=== PATIENT | male | born 1980 | race Caucasian/White ===

== ENCOUNTER 2024-03-01 13:40 | Outpatient (AMB) | payer MEDICARE, MEDICAID, SELFPAY ==
[2024-03-01 13:58] VITALS: BP 150/94; PULSE 107; RESP 16; O2SAT 96; BMI 36.1
--- NOTE | 2024-03-01 13:58 | MHC.OFFVIS ---
Intake Vital Signs 03/01/24 13:58 Height 6 ft Weight 266 lb 4 oz BMI 36.1 BP 150/94 H Blood Pressure Location Lt brachial Position Sitting Respiration 16 Pulse 107 H Pulse Source Pulse Oximeter Pulse Oximetry (%) 96 Oxygen Delivery Method Room Air Intake Visit Reasons: neuropathy pain/back pain Allergies No Known Allergies Allergy (Verified 03/01/24 14:00) HPI HPI Comments History of Present Illness Details Drake is a very pleasant 43-year-old male who presents to the office today for evaluation management of his chronic bilateral diabetic neuropathy Patient reports he has been suffering with this pain 2014. He is insulin diabetic, currently using Humalog and Lantus. Unknown last A1c, is due to have blood work repeated. Blood sugars averaging 142-250. Was taking gabapentin 800 mg 3 times daily it was no longer controlling his symptoms. He is currently in the process of being changed to Lyrica but is waiting for that to be approved from his insurance. He has tried icy hot and CBD cream with minimal benefit. Previously use lidocaine patches to the tops of his feet with good effect but states at some point over the last year insurance stopped covering them. Pain today is rated as a 6/10, mainly the tops of both feet. Pain is constant, worse at night. In terms of muscle damage condition is described as burning, pulsing, throbbing, pounding, flushing, shooting, piercing, spreading Pain is negatively impacting patient's enjoyment of life, general activity, sleep, mood and relationships Physical Exam Vital Signs: Last Vital Signs Pulse 107 H 03/01/24 13:58 Resp 16 03/01/24 13:58 BP 150/94 H 03/01/24 13:58 Pulse Ox 96 03/01/24 13:58 Oxygen Delivery Method Room Air 03/01/24 13:58 BMI result Body Mass Index 36.1 General: awake, alert, oriented. Answers questions appropriately. Fully engaged in examination. Skin: warm, dry, intact. calloused skin noted bottom heals bilaterally, missing right 5th toenail. no other wounds, abrasions, lesions or ulcers visualized. HEENT: Normocephalic. Hearing intact. Cardiac: External chest normal in appearance. Respiratory: No cough, audible wheezing or stridor. Abdomen: without gross distension. MS: No obvious swelling or deformities. Able to transition from sit to stand unassisted. Ambulates with bilaterally normal heel strike and toe off Neurological: Oriented to person, place, time and situation. Thought process intact. Ambulates with the use of a cane Psychiatric: Appropriate mood and affect. Good judgment and insight. Assessment & Plan Assessment & Plan (1) Diabetic neuropathy: Code(s): E11.40 - Type 2 diabetes mellitus with diabetic neuropathy, unspecified Plan Drake presented to the office today for evaluation and management of his painful diabetic neuropathy. Discussed options for treatment including topical treatment and more permanent neuromodulation. Informational pamphlets provided. Will submit PA for Qutenza topical application. Patient advised on procedure including preparation and EMLA application prior to appointment. He is aware treatment is done in office and he will be here for 30minutes during each visit. Also discussed option for SCS trial/implant. Will discuss further if patient does not receive benefit from Qutenza topical. lidocaine 5% patches, apply as needed. on for 12 hours, off for 12 hours. All questions and concerns have been answered and patient agrees with the plan. Patient aware he will be called to schedule appointment for Qutenza pending insurance approval. Medications: New lidocaine 5% leave on most painful area for up to 12 hrs 2 patches topical DAILY 30 ea 3RF Coding Level of Care Code New Pt Level 4 (70933) Diagnoses Diabetic neuropathy E11.40
== END 2024-03-01 15:24 | disposition home or self-care (01) ==
PROVIDERS: PCP Physician Assistant Medical; Visit Provider Registered Nurse Emergency
DX: E11.40 Type 2 diabetes mellitus with diabetic neuropathy, unspecified (principal)
CPT/HCPCS: 99204

== ENCOUNTER → 2024-03-01 13:40 | Outpatient (BNVA) | payer MEDICARE, MEDICAID, SELFPAY | PROVIDERS: PCP Physician Assistant Medical; Visit Provider Registered Nurse Emergency | DX: E11.40 Type 2 diabetes mellitus with diabetic neuropathy, unspecified (principal) | CPT/HCPCS: 99202 ==

== ENCOUNTER 2024-03-21 11:00 | Outpatient (AMB) | payer MEDICARE, MEDICAID, SELFPAY ==
[2024-03-21 11:09] VITALS: BP 140/89; PULSE 102; O2SAT 96; BMI 36.3
--- NOTE | 2024-03-21 11:09 | A.OFFVIS_ITS ---
Vital Signs 03/21/24 11:09 Height 6 ft Weight 267 lb 8 oz BMI 36.3 BP 140/89 H Blood Pressure Location Lt brachial Position Sitting Pulse 102 H Pulse Source Pulse Oximeter Pulse Oximetry (%) 96 Oxygen Delivery Method Room Air Intake Visit Reasons: Qutenza - 1st Treatment Intake Note: Pain today 10 Pharmaceutical Assistant Required: No Accompanied by: Self / Same As Patient Allergies No Known Allergies Allergy (Verified 03/21/24 11:09) HPI Comments Details: Patient presents the office today for a scheduled 1st Qutenza application Reports that he put the EMLA cream on at home as instructed. Endorses cracks to both heels, he noticed this last week. He intended to reach out to the office to inquire if he would still be able to get the treatment with these wounds but forgot. Patient has not seen podiatry in 7 or 8 years. 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 Patient states he was recently given topical cream by his primary care doctor to apply twice daily to both feet for the calluses. He has started doing this but has not noted any improvement. Prior: Drake is a very pleasant 43-year-old male who presents to the office today for evaluation management of his chronic bilateral diabetic neuropathy Patient reports he has been suffering with this pain 2014. He is insulin diabetic, currently using Humalog and Lantus. Unknown last A1c, is due to have blood work repeated. Blood sugars averaging 142-250. Was taking gabapentin 800 mg 3 times daily it was no longer controlling his symptoms. He is currently in the process of being changed to Lyrica but is waiting for that to be approved from his insurance. He has tried icy hot and CBD cream with minimal benefit. Previously use lidocaine patches to the tops of his feet with good effect but states at some point over the last year insurance stopped covering them. Pain today is rated as a 6/10, mainly the tops of both feet. Pain is constant, worse at night. In terms of muscle damage condition is described as burning, pulsing, throbbing, pounding, flushing, shooting, piercing, spreading Pain is negatively impacting patient's enjoyment of life, general activity, sleep, mood and relationships Review of Systems Const All systems reviewed & are unremarkable except as noted in HPI and below Physical Exam Vital Signs: Last Vital Signs Pulse 102 H 03/21/24 11:09 BP 140/89 H 03/21/24 11:09 Pulse Ox 96 03/21/24 11:09 Oxygen Delivery Method Room Air 03/21/24 11:09 BMI result Body Mass Index 36.3 General: awake, alert, oriented. Answers questions appropriately. Fully engaged in examination. Skin: warm, dry, intact. calloused skin noted bottom heals bilaterally with 2 inch vertical crack noted to each heel. Visible granuloma tissue noted to the right heal. missing right 5th toenail. callouses noted bilateral heals. HEENT: Normocephalic. Hearing intact. Cardiac: External chest normal in appearance. Respiratory: No cough, audible wheezing or stridor. Abdomen: without gross distension. MS: No obvious swelling or deformities. Able to transition from sit to stand unassisted. Ambulates with bilaterally normal heel strike and toe off Neurological: Oriented to person, place, time and situation. Thought process intact. Ambulates with the use of a cane Psychiatric: Appropriate mood and affect. Good judgment and insight. Assessment & Plan Assessment & Plan (1) Diabetes: Code(s): E11.9 - Type 2 diabetes mellitus without complications Category: Medical (2) Diabetic neuropathy: Code(s): E11.40 - Type 2 diabetes mellitus with diabetic neuropathy, unspecified Category: Medical Plan Drake presented to the office today for follow-up diabetic neuropathy and planned 1st topical Qutenza application. Referral placed to Podiatry for evaluation and management of his diabetic foot care. He requested podiatry in [place] as he does not have transportation currently and is relying solely on public transportation. Lengthy discussion with patient regarding the cracks to both heels. He was advised that we can not proceed with topical Qutenza with any open foot wounds. Patient verbalized understanding. All questions and concerns have been answered and patient agrees with the plan. Patient will follow up here for topical Qutenza application after resolution of the wounds to his heels. Orders: Referrals Podiatry Referral E11.40 - Type 2 diabetes mellitus with diabetic neuropathy, unspecified, E11.9 - Type 2 diabetes mellitus without complications Coding Level of Care Code Est Pt Level 3 (21121) Diagnoses Diabetes E11.9 Diabetic neuropathy E11.40
== END 2024-03-21 11:29 | disposition home or self-care (01) ==
PROVIDERS: PCP Physician Assistant Medical; Visit Provider Registered Nurse Emergency
DX: E11.40 Type 2 diabetes mellitus with diabetic neuropathy, unspecified (principal)
CPT/HCPCS: 99213

== ENCOUNTER → 2024-03-21 11:00 | Outpatient (BNVA) | payer MEDICARE, MEDICAID, SELFPAY | PROVIDERS: PCP Physician Assistant Medical; Visit Provider Registered Nurse Emergency | DX: E11.40 Type 2 diabetes mellitus with diabetic neuropathy, unspecified (principal) | CPT/HCPCS: 99212 ==

== ENCOUNTER 2024-09-25 09:45 | Outpatient (AMB) | payer MEDICARE, MEDICAID, SELFPAY ==
[2024-09-25 09:57] VITALS: BP 143/95; PULSE 85; O2SAT 96; BMI 34.2
--- NOTE | 2024-09-25 09:57 | MHC.OFFVIS ---
Vital Signs 09/25/24 09:57 Height 6 ft Weight 252 lb BMI 34.2 BP 143/95 H Blood Pressure Location Lt brachial Position Sitting Pulse 85 Pulse Source Pulse Oximeter Pulse Oximetry (%) 96 Oxygen Delivery Method Room Air Intake Visit Reasons: Qutenza- no show in may Allergies No Known Allergies Allergy (Verified 09/25/24 09:58) HPI Comments Details: Patient presents the office today for follow-up diabetic neuropathy He was planned for 1st topical capsaicin in office application. Patient had left great toe amputation approximately 1 month ago. Now with several scabbed wounds to the left foot that he states was caused from the postop shoe. Denies fevers, chills, nausea, vomiting, diarrhea. Denies drainage from the foot wounds. He has an appointment with Podiatry and less than one-week for follow-up. Most recent A1c was 9. Prior: Patient presents the office today for a scheduled 1st Qutenza application Reports that he put the EMLA cream on at home as instructed. Endorses cracks to both heels, he noticed this last week. He intended to reach out to the office to inquire if he would still be able to get the treatment with these wounds but forgot. Patient has not seen podiatry in 7 or 8 years. 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 Patient states he was recently given topical cream by his primary care doctor to apply twice daily to both feet for the calluses. He has started doing this but has not noted any improvement. Prior: Drake is a very pleasant 43-year-old male who presents to the office today for evaluation management of his chronic bilateral diabetic neuropathy Patient reports he has been suffering with this pain 2014. He is insulin diabetic, currently using Humalog and Lantus. Unknown last A1c, is due to have blood work repeated. Blood sugars averaging 142-250. Was taking gabapentin 800 mg 3 times daily it was no longer controlling his symptoms. He is currently in the process of being changed to Lyrica but is waiting for that to be approved from his insurance. He has tried icy hot and CBD cream with minimal benefit. Previously use lidocaine patches to the tops of his feet with good effect but states at some point over the last year insurance stopped covering them. Pain today is rated as a 6/10, mainly the tops of both feet. Pain is constant, worse at night. In terms of muscle damage condition is described as burning, pulsing, throbbing, pounding, flushing, shooting, piercing, spreading Pain is negatively impacting patient's enjoyment of life, general activity, sleep, mood and relationships Review of Systems Const All systems reviewed & are unremarkable except as noted in HPI and below Physical Exam Vital Signs: Last Vital Signs Pulse 85 09/25/24 09:57 BP 143/95 H 09/25/24 09:57 Pulse Ox 96 09/25/24 09:57 Oxygen Delivery Method Room Air 09/25/24 09:57 BMI result Body Mass Index 34.2 General: awake, alert, oriented. Answers questions appropriately. Fully engaged in examination. Skin: warm, dry, intact. Several scabbed wounds noted to left foot. No redness, warmth swelling, drainage. HEENT: Normocephalic. Hearing intact. Cardiac: External chest normal in appearance. Respiratory: No cough, audible wheezing or stridor. Abdomen: without gross distension. MS: No obvious swelling or deformities. Able to transition from sit to stand unassisted. Ambulates with bilaterally normal heel strike and toe off Neurological: Oriented to person, place, time and situation. Thought process intact. Ambulates with the use of a cane Psychiatric: Appropriate mood and affect. Good judgment and insight. Assessment & Plan Assessment & Plan (1) Diabetes: Code(s): E11.9 - Type 2 diabetes mellitus without complications Category: Medical (2) Diabetic neuropathy: Code(s): E11.40 - Type 2 diabetes mellitus with diabetic neuropathy, unspecified Category: Medical Plan Drake presented to the office today for follow-up diabetic neuropathy and planned 1st topical Qutenza application. Lengthy discussion with patient regarding wounds to his foot. He was advised that we can not proceed with topical Qutenza. Patient verbalized understanding. He will follow up with Podiatry as planned Follow up with PCP or endocrinology to discuss A1c. Lengthy discussion today with the patient and his girlfriend regarding SCS trial/implant. He is aware that his A1c would need to be below 8 before we could proceed with this. He will work on getting his A1c in the acceptable range. All questions and concerns have been answered and patient agrees with the plan. Patient will follow up here for SCS trial once A1c less than 8. Coding Level of Care Code Est Pt Level 3 (91453) Complex EM visit Add On G2211 Diagnoses Diabetes E11.9 Diabetic neuropathy E11.40
== END 2024-09-25 10:13 | disposition home or self-care (01) ==
LOC: HO.PMC 09:45
PROVIDERS: PCP Physician Assistant Medical; Visit Provider Registered Nurse Emergency
DX: E11.40 Type 2 diabetes mellitus with diabetic neuropathy, unspecified (principal)
CPT/HCPCS: 99213; G2211

== ENCOUNTER → 2024-09-25 09:45 | Outpatient (BNVA) | payer MEDICARE, MEDICAID, SELFPAY | PROVIDERS: PCP Physician Assistant Medical; Visit Provider Registered Nurse Emergency | DX: E11.40 Type 2 diabetes mellitus with diabetic neuropathy, unspecified (principal) | CPT/HCPCS: 99212 ==

== ENCOUNTER 2025-02-19 12:46 | Outpatient (AMB) | payer MEDICARE, MEDICAID, SELFPAY ==
--- NOTE | 2025-02-19 12:48 | A.OFFVIS_ITS ---
Vital Signs 02/19/25 12:59 Height 6 ft Weight 263 lb BMI 35.7 BP 150/78 H Blood Pressure Location Lt brachial Position Sitting Pulse 80 Intake Visit Reasons: Bleeding lg skin tag at dorsal neck Intake Note: Patient referred by pcp Dr. Peterson for lesion on post dorsal neck. Present for 3m. Patient c/o: redness, swollen, painful, bleeding. No personal hx of skin CA. 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 Accompanied by: Yu Allergies No Known Allergies Allergy (Verified 02/19/25 12:55) Medication List - Last Reconciled 02/19/25 by Vladimir Romero MD ammonium lactate 12% 1 appl topical BID benazepril 40 mg PO DAILY clonazepam (Klonopin) 1 mg PO BEDTIME clonazepam mg PO diclofenac sodium 1% topical escitalopram oxalate 5 mg PO DAILY gabapentin 800 mg PO TID hydroxyzine HCl 25 mg PO TID insulin glargine (Lantus U-100 Insulin) 20 units subcut BID insulin lispro (Humalog KwikPen (U-100) Insulin) 1 sliding scale dose subcut USEASDIRECTD Lactobacillus rhamnosus GG (Culturelle) 1 cap PO BID lansoprazole 30 mg PO DAILY lidocaine 5% 2 patches topical DAILY lidocaine-prilocaine 2.5-2.5 % 1 appl topical ONCE metformin 1,000 mg PO BID nicotine (polacrilex) (Nicorette) 4 mg buccal Q1H risperidone (Risperdal) 1 mg PO BID sildenafil (Viagra) 100 mg PO DAILY PRN tizanidine 4 mg PO BID tizanidine 2 mg PO Q8H PRN tizanidine 2 mg PO BID HPI HPI Bleeding lg skin tag at dorsal neck: Details: 44-year-old male referred for a skin lesion on the posterior neck. He says that he has had this for many years. However, for the past 3 months, he says that he has been bleeding as he it gets irritated when he is sleeping. He says he subconsciously scratches this. He denies any significant increase in size. He is a known diabetic. He has says his blood sugars sugars are inconsistent. [facility] Medical History (Updated 02/19/25 @ 13:09 by Vladimir Romero MD) Benign skin lesion of neck Sleep apnea Right groin hernia Diabetes Neuropathy Acid reflux HTN (hypertension) Surgical History (Updated 02/19/25 @ 12:58 by MAXI Rojas) History of amputation of left fifth toe Social History (Updated 02/19/25 @ 12:58 by MAXI Rojas) Alcohol intake: current Alcohol intake frequency: a few times a month Alcohol type: beer and hard liquor Tobacco use type: Smokeless Tobacco Review of Systems Const Denies chills and Denies fever(s) Card Reports dyspnea on exertion Resp Denies cough and Reports dyspnea on exertion GI Denies abdominal pain Denies dysuria Musc Details: Difficulty with walking due to pain on his left leg from reason cellulitis Physical Exam Vital Signs: Last Vital Signs Pulse 80 02/19/25 12:59 BP 150/78 H 02/19/25 12:59 BMI result Body Mass Index 35.7 Const Other: Using crutches, appears morbidly obese General: comfortable and no acute distress Orientation/consciousness: patient oriented x3 Neck Other: Fleshy mass he had some bleeding on the posterior neck, about 2.5 cm in length with a narrow base Neck: Yes no lymphadenopathy Resp Auscultation: clear to auscultation bilaterally Cardio Rhythm: regular rhythm GI Palpation (GI): Soft to palpation, nontender and no guarding Neuro General: patient oriented x3 Assessment & Plan Assessment & Plan (1) Benign skin lesion of neck: Code(s): L98.9 - Disorder of the skin and subcutaneous tissue, unspecified Category: Medical Plan: This appears to be a fibroma. He wants this removed. I explained the technique of excision under local anesthesia. I reviewed the risks including but not limited to bleeding and infections as well as the benefits and alternatives. He says he wants to proceed This will be done in the office in his next visit. Coding Level of Care Code New Pt Level 3 (47312) Diagnoses Benign skin lesion of neck L98.9
[2025-02-19 12:59] VITALS: BP 150/78; PULSE 80; BMI 35.7
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
--- OUTSIDE RECORDS SUMMARY | 2025-02-19 15:18 | XMS_ITS | Clinical Summary ---
Author Organization [address] [place] [address] Address [address] [place] [address] Phone Care Team Providers Care Teaching Specialists Name Role Phone Jas Babb MD Primary Care Provider [phone] Allergies Active Allergy Reactions Criticality Noted Date Comments Acetaminophen Rash 08/28/2024 Prednisone Nausea Only 07/13/2016 Other Reaction(s): Hives/Urticaria Medications insulin glargine (LANTUS) 100 unit/mL injection Inject 45 Units under the skin at bedtime. Active insulin lispro 100 unit/mL injection Inject under the skin 3 (three) times a day before meals. -Administer within 15 minutes of a meal Active lansoprazole (PREVACID) [address] capsuleIndicat ions:Gastroeso phageal reflux disease, unspecified whether esophagitis present Take 1 capsule (30 mg total) by mouth 1 (one) time each day. 30 capsule 3 01/10/20 25 Active sucralfate (CARAFATE) 1 gram tablet Take 1 tablet (1 g total) by mouth 4 (four) times a day (before meals and nightly). Take 1 hour before meals and at bedtime 360 each 01/22/20 25 025 Active ARIPiprazole (ABILIFY) 5 mg tablet Take 1 tablet (5 mg total) by mouth at bedtime. 01/15/20 25 Active nicotine polacrilex (NICORETTE) [address] 1 each (4 mg total) into mouth between cheek and gum every 2 (two) hours if needed for smoking cessation. 02/01/20 25 Active tiZANidine (ZANAFLEX) 2 mg tablet Take 1 tablet (2 mg total) by mouth 2 (two) times a day if needed for muscle spasms. 01/31/20 25 Active amLODIPine (NORVASC) 5 mg tablet Take 2 tablets (10 mg total) by mouth 1 (one) time each day. 60 each 02/05/20 25 025 Active metoprolol succinate (TOPROL-XL) 25 mg 24 hr tablet Take 1 tablet (25 mg total) by mouth 1 (one) time each day. Do not crush or chew. 30 each 02/05/20 25 Active oxyCODONE (ROXICODONE) 5 mg immediate release tablet 09/05/20 24 Discontinued(E xpired) glyBURIDE (DIABETA) 5 mg tablet Take 5 mg by mouth daily (with breakfast). Discontinued(T herapy completed) ARIPiprazole (ABILIFY) 30 mg tablet Take 30 mg by mouth daily. Discontinued(T herapy completed) clonazePAM (KlonoPIN) 1 mg tablet Take 1 mg by mouth daily. Discontinued(E ntered in Error) pregabalin (LYRICA) 150 mg capsule Take 150 mg by mouth 3 times daily. Discontinued(T herapy completed) metFORMIN (GLUCOPHAGE) 1,000 mg tablet Take 1,000 mg by mouth 2 times daily (with meals). Discontinued(T herapy completed) amLODIPine (NORVASC) 5 mg tablet Take 1 tablet (5 mg total) by mouth 1 (one) time each day. Discontinued(T herapy completed) levothyroxine sodium (TIROSINT) 50 mcg capsule Take 50 mcg by mouth daily. Discontinued(T herapy completed) clonazePAM (KlonoPIN) 0.5 mg tablet Take 0.5 mg by mouth 2 times daily as needed. Discontinued(T herapy completed) ibuprofen (ADVIL,MOTRIN) 600 mg tablet Take 600 mg by mouth 3 times daily (with meals). Discontinued(T herapy completed) benazepriL (LOTENSIN) 40 mg tablet Take 40 mg by mouth daily. Discontinued(E ntered in Error) meclizine (ANTIVERT) 25 mg tablet Take by mouth every 8 hours. Prn Discontinued(T herapy completed) ammonium lactate (AMLACTIN) 12 % cream APPLY 10 GM ON THE SKIN TWICE A DAY OVER FEET 12/30/19 25 025 Discontinued(E ntered in Error) atenoloL (TENORMIN) 25 mg tablet Take 1 tablet (25 mg total) by mouth 1 (one) time each day. 025 Discontinued(E ntered in Error) cephalexin (KEFTAB) 500 mg tablet Take 1 tablet (500 mg total) by mouth 3 (three) times a day. 01/27/20 025 Discontinued(S top Taking at Discharge) clotrimazole (LOTRIMIN) 1 % cream Apply 1 Application topically 2 (two) times a day. Discontinued(E ntered in Error) diclofenac (VOLTAREN) 1 % topical gel Apply 2 g topically 4 (four) times a day. Discontinued(E ntered in Error) doxycycline hyclate (VIBRA-TABS) 100 mg tablet Take 1 tablet (100 mg total) by mouth 2 (two) times a day. 01/29/20 025 Discontinued(S top Taking at Discharge) hydroCHLOROthi azide (MICROZIDE) 12.5 mg capsule Take 1 capsule (12.5 mg total) by mouth 1 (one) time each day. 025 Discontinued(E ntered in Error) ibuprofen (ADVIL,MOTRIN) 800 mg tablet Take 1 tablet (800 mg total) by mouth every 8 (eight) hours if needed for mild pain or fever - temperature GREATER than 38 C (100.4 F). 025 Discontinued(E ntered in Error) saccharomyces boulardii (FLORASTOR) 250 mg capsule Take 1 capsule (250 mg total) by mouth 2 (two) times a day for 14 days. 28 capsule 02/05/20 25 025 oxyCODONE (ROXICODONE) 5 mg immediate release tablet Take 1 tablet (5 mg total) by mouth every 6 (six) hours if needed for severe pain for up to 3 days. Max Daily Amount: 20 mg 12 tablet 02/05/20 25 025 Discontinued amoxicillin-cl avulanate (AUGMENTIN) 875-125 mg per tablet Take 1 tablet by mouth 2 (two) times a day for 10 days. 20 each 02/05/20 25 025 sulfamethoxazo le-trimethopri m (BACTRIM DS,SEPTRA DS) 800-160 mg per tablet Take 1 tablet by mouth 2 (two) times a day for 10 days. 20 each 02/05/20 25 025 neomycin-bacit racin-polymyxi n B (NEOSPORIN) ointment Apply topically 1 (one) time each day for 10 days. 15 g 02/05/20 25 025 oxyCODONE (ROXICODONE) 5 mg immediate release tablet Take 1 tablet (5 mg total) by mouth every 6 (six) hours if needed for severe pain for up to 3 days. 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 estations 12/20/2017 Encounters Date Type Department Care Team Description 02/13/2025 Telephone Orthopedic Surgery [facility] [address] [phone] Jonathon Davidson DPM Scooter 02/12/2025 1:00 PM EDT Office Visit Orthopedic Surgery [facility] [address] [phone] Lety, Jonathon A, DPM Poorly controlled type 2 diabetes mellitus with neuropathy (CMS/HCC) (Primary Dx); Cellulitis of left foot; 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, left, with fat layer exposed (CMS/HCC) 02/02/2025 8:14 PM EDT - 02/04/2025 12:09 PM EDT Hospital Encounter [facility] [address] [place] [phone] Coby Brasher DO Ishtiaq, Rizwan, MD Kela, Kashyap Devendrabhai, MD Cellulitis of foot, left (Primary Dx); Cellulitis of foot, right Discharge Disposition: Home or Self Care 02/01/2025 9:07 AM EDT - 02/01/2025 2:35 PM EDT Emergency [facility] [address] [place] [phone] Tremaine Herrera DO Leg pain, diffuse, left (Primary Dx); Bilateral cellulitis of lower leg Discharge Disposition: Left Against Medical Advice 01/21/2025 1:20 PM EST Office Visit Gastroenterology - [place] [address] 175 [facility] [address] [place] [phone] Faith Hernandez NP Chronic gastric ulcer without hemorrhage and without perforation (Primary Dx); Hiatal hernia with GERD; Colonoscopy refused 01/10/2025 Telephone Gastroenterology - [place] [address] 175 [facility] [address] [place] [phone] Faith Hernandez NP Forms/questionnaires 12/23/2024 10:30 AM EST Office Visit Orthopedic Surgery - [place] 250 175 [facility] [address] [place] [phone] Jonathon Davidson DPM Poorly controlled type 2 diabetes mellitus with neuropathy (CMS/HCC) (Primary Dx); Cellulitis of left foot; 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, left, with fat layer exposed (CMS/HCC); Non-pressure chronic ulcer of left ankle with fat layer exposed (CMS/HCC) 11/27/2024 10:59 AM EST Anesthesia Event [facility] [address] [place] [phone] Nilson Mullins DO 11/27/2024 9:21 AM EST - 11/27/2024 11:59 PM EST Hospital Encounter [facility] [address] [place] [phone] Magalie Feng MD Korobkov, Vitaliy, DO Steele, Matthew G, CRNA Esophageal dysphagia Discharge Disposition: Home or Self Care 11/25/2024 10:15 AM EST Office Visit Orthopedic Surgery [facility] [address] [phone] Jonathon Davidson DPM Controlled type 2 diabetes with neuropathy ([facility]) (Primary Dx); Non-pressure chronic ulcer of left ankle with fat layer exposed ([facility]/HCC); 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, left, with fat layer exposed ([facility]/HCC) 11/21/2024 11:00 AM EST Consult Gastroenterology [facility] 175 [facility] [address] [phone] Faith Hernandez NP Esophageal dysphagia (Primary Dx); Gastroesophageal reflux disease without esophagitis; Primary hypertension 11/21/2024 Telephone Gastroenterology [facility] [address] [phone] Faith Hernandez NP PRIOR AUTHORIZATION from Last 3 Months Surgical History Surgery Date Site/Laterality Comments HERNIA REPAIR 04/2014 Right PROCEDURE: REPAIR INGUINAL HERNIA; COMMENT: incarcerated ESOPHAGOGASTRODUODENOSCOPY TOE AMPUTATION Left great toe partial amputation Medical History Medical History Date Comments Anxiety state DX:Anxiety state Asthma 04/29/2019 DX:Asthma Bipolar disorder DX:Bipolar diso rder ([facility]) Chronic back pain DX:Chronic frederick k pain Depressive disorder DX:Depressiv e disorder Diabetes mellitus type 2 wit h neurological manifestations ([facility]) 12/20/2017 DX:Diabetes meghan itus type 2 with neurological manifestations ([facility]) Esophageal reflux DX:Esophageal reflux Essential hypertension DX:Essent ial hypertension Morbid obesity with BMI of 4 0.0-44.9, adult ([facility]) DX:Morbid obesity with BMI o f 40.0-44.9, adult (HCC) Obstructive sleep apnea DX:Obstr uctive sleep apnea Peripheral neuropathy DX:Periphe ral neuropathy Family History Medical History Relation Name Comments Diabetes Father Stroke Father Other: Other Mother Diabetes Sister Thyroid cancer Sister Relation Name Status Comments Father Mother Alive Sister Social History Tobacco Use Types Packs/Day Years Used Date Smoking Tobacco: Former Smokeless Tobacco: Current Tobacco Cessation:Ready to Q uit: Not Asked; Counseling Given: Not Answered Alcohol Use Standard Drinks/Week Comments Yes 0 [...] Orientation Straight 12/12/2024 7: 58 PM EST Obstetrics History Last Filed Vital Signs Vital Sign Reading Time Taken Comments Blood Pressure 147/89 02/04/2025 11:21 AM EDT Pulse 80 02/04/2025 11:21 AM EDT Temperature 36.2 ??C (97.2 ??F) 02/04/2025 11:21 AM E DT Respiratory Rate 17 02/04/2025 7:39 AM EDT Oxygen Saturation 97% 02/04/2025 3:00 AM EDT Inhaled Oxygen Concentration - - Weight 118 kg (261 lb) 02/12/2025 12:59 PM EDT Height 185.4 cm (6' 1 ) 02/12/2025 12:59 PM EDT Body Mass Index 34.43 02/12/2025 12:59 PM EDT Plan of Treatment Upcoming Encounters Date Type Department Care Team (Late st Contact Info) Description 02/20/2025 1:30 PM EDT Office Visit Orthopedic Surgery - [place] [address] [phone] Jonathon Davidson DPM 175 [facility] [address] [place] [address] 07/28/2025 1:00 PM EDT Office Visit Gastroenterology - [place] 175 [facility] 175 [facility] [address] [place] [phone] Faith Hernandez, AZAEL 175 [facility] [address] [place] [address] Health Maintenance Due Date Last Done Comments Diabetes: Annual Retina Eye Exam 1991 DTaP,Tdap,and Td Vaccines (1 - Tdap) 2000 Hepatitis B Vaccines (1 of 3 - 19+ 3-dose series) 2000 Pneumococcal Vaccine: Pediatrics (0 to 5 Years) and At-Risk Patients (6 to 64 Years) (1 of 2 - PCV) 2000 COVID-19 Vaccine ( - season) 2024 Cholesterol Screening (Lipid Panel) 09/12/2024 Depression Screening 09/12/2024 Diabetes: Annual Urine Albumin-Creatinine Ratio (uACR) 09/12/2024 Diabetes: Blood Sugar Control Test (HGBA1C) 09/12/2024 HIV Screening 09/12/2024 Hepatitis C Screening 09/12/2024 Medicare Annual Wellness Visit 09/12/2024 Social Influencers of Health Screening 09/12/2024 Influenza Vaccine (Season Ended) 2025 Diabetes: Annual Foot Exam 02/02/2026 02/02/2025 Diabetes: Annual GFR (Glomerular Filtration Rate) 02/04/2026 02/04/2025, 02/03/2025, 02/02/2025, Additional history exists Hypertension/CHF/CAD Annual BMP Blood Test 02/04/2026 02/04/2025, 02/03/2025, 02/02/2025, Additional history exists HIB Vaccines Aged Out No longer eligi ble based on patient's age to complete this topic HPV Vaccines Aged Out No longer eligi ble based on patient's age to complete this topic Hepatitis A Vaccines Aged Out No long er eligible based on patient's age to complete this topic IPV Vaccines Aged Out No longer eligi ble based on patient's age to complete this topic MMR Vaccines Aged Out No longer eligi ble based on patient's age to complete this topic Meningococcal ACWY Vaccine Aged Out N o longer eligible based on patient's age to complete this topic Meningococcal B Vacine Aged Out No lo nger eligible based on patient's age to complete this topic RSV Immunization Patients Under 20 months Aged Out No longer eligible based on patient's age to complete this topic Varicella Vaccines Aged Out No longer eligible based on patient's age to complete this topic Procedures Procedure Name Priority Date/Time Associated Diagnosis Comments ECG OUTSIDE 02/05/2025 POCT GLUCOSE BLOOD Routine 02/04/2025 11 :16 AM EDT VANCOMYCIN, TROUGH Timed 02/04/2025 8: 08 AM EDT CBC WITH AUTO DIFFERENTIAL Routine 02/04/2025 8:08 AM EDT BASIC METABOLIC PANEL Routine 02/04/2025 8:08 AM EDT CBC AND DIFFERENTIAL Routine 02/04/2025 8:08 AM EDT POCT GLUCOSE BLOOD Routine 02/04/2025 7: 40 AM EDT POCT GLUCOSE BLOOD Routine 02/03/2025 9: 32 PM EDT US EXTREMITY NONVASCULAR LIMITED LEFT Routine 02/03/2025 7:48 PM EDT POCT GLUCOSE BLOOD Routine 02/03/2025 3: 57 PM EDT POCT GLUCOSE BLOOD Routine 02/03/2025 11 :12 AM EDT POCT GLUCOSE BLOOD Routine 02/03/2025 7: 59 AM EDT CBC WITH AUTO DIFFERENTIAL Routine 02/03/2025 6:01 AM EDT MAGNESIUM Routine 02/03/2025 6:01 AM EDT BASIC METABOLIC PANEL Routine 02/03/2025 6:01 AM EDT CBC AND DIFFERENTIAL Routine 02/03/2025 6:01 AM EDT CULTURE BLOOD Routine 02/03/2025 12:35 AM EDT CULTURE BLOOD Routine 02/03/2025 12:35 AM EDT POCT GLUCOSE BLOOD Routine 02/02/2025 11 :38 PM EDT CBC WITH AUTO DIFFERENTIAL STAT 02/02/2025 9:18 PM EDT COMPREHENSIVE METABOLIC PANEL STAT 02/02/2025 9:18 PM EDT CBC AND DIFFERENTIAL STAT 02/02/2025 9:18 PM EDT XR FOOT 3+ VIEWS BILAT STAT 12:21 PM EDT VAS US DUPLEX LOWER EXT VENOUS LEFT STAT 02/01/2025 12:13 PM EDT Leg pain, diffuse, left LACTATE, WITH REFLEX STAT 02/01/2025 9:59 AM EDT SEDIMENTATION RATE STAT 02/01/2025 9: 59 AM EDT CBC WITH AUTO DIFFERENTIAL STAT 02/01/2025 9:59 AM EDT C-REACTIVE PROTEIN STAT 02/01/2025 9: 59 AM EDT COMPREHENSIVE METABOLIC PANEL STAT 02/01/2025 9:59 AM EDT CBC AND DIFFERENTIAL STAT 02/01/2025 9:59 AM EDT CULTURE BLOOD STAT 02/01/2025 9:59 AM EDT POCT GLUCOSE BLOOD Routine 02/01/2025 8: 53 AM EDT EGD Routine 11/27/2024 11:21 AM EST Esophageal dysphagia TISSUE EXAM Routine 11/27/2024 11:11 AM EST Esophageal dysphagia POCT GLUCOSE BLOOD Routine 11/27/2024 9: 54 AM EST from Last 3 Months Results * ECG-Outside (02/05/2025) us Provider Onbase MD ECG ORDERABLES Final Result * (ABNORMAL) POCT Glucose, blood (02/04/2025 11:16 AM EDT) Only the most recent of9 resultswithin the time period is included. [facility] Glucose POCT 334(H) 70 - 100 mg/dL 02/04/2025 11:17 AM EDT [facility] Blood Capillary blood specimen / Unknown 02/04/2025 11:16 AM EDT 02/04/2025 11:18 AM EDT Toro Alves MD LAB POINT O F CARE TEST DOCKED DEVICE UNSOLICITED RESULTS Final Result [facility] [address] [place] [address], [place] [phone] * (ABNORMAL) CBC auto differential (02/04/2025 8:08 AM EDT) Only the most recent of4 resultswithin the time period is included. [facility] WBC 8.2 4.8 - 10.8 K/mcL LAB HEMETOLOGY METHOD 02/04/2025 8:48 AM EDT [facility] RBC 5.00 4.50 - 5.50 M/[facility] LAB HEMETOLOGY METHOD 02/04/2025 8:48 AM EDT [facility] Hemoglobin 14.1 13.5 - 17.5 g/dL LAB HEMETOLOGY METHOD 02/04/2025 8:48 AM EDT [facility] Hematocrit 40.5(L) 42.0 - 54.0 % LAB HEMETOLOGY METHOD 02/04/2025 8:48 AM [facility] MCV 81.7 79.0 - 98.0 FL LAB HEMETOLOGY METHOD 02/04/2025 8:48 AM [facility] MCH 28.4 27.0 - 32.0 pcg LAB HEMETOLOGY METHOD 02/04/2025 8:48 AM [facility] MCHC 34.8 32.0 - 37.0 g/dL LAB HEMETOLOGY METHOD 02/04/2025 8:48 AM [facility] RDW 13.1 11.0 - 15.0 % LAB HEMETOLOGY METHOD 02/04/2025 8:48 AM [facility] Platelets 427(H) 130 - 400 K/mcL LAB HEMETOLOGY METHOD 02/04/2025 8:48 AM [facility] MPV 8.8 7.0 - 11.0 FL LAB HEMETOLOGY METHOD 02/04/2025 8:48 AM [facility] NRBC 0.0 <1.0 % LAB HEMETOLOGY METHOD 02/04/2025 8:48 AM [facility] NRBC Absolute 0.00 <0.10 K/mcL LAB HEMETOLOGY METHOD 02/04/2025 8:48 AM [facility] Neutrophils Relative 68.8 % LAB HEMETOLOGY METHOD 02/04/2025 8:48 AM [facility] Lymphocytes Relative 21.1 % LAB HEMETOLOGY METHOD 02/04/2025 8:48 AM [facility] Monocytes Relative 4.9 % LAB HEMETOLOGY METHOD 02/04/2025 8:48 AM [facility] Eosinophils Relative 4.0 % LAB HEMETOLOGY METHOD 02/04/2025 8:48 AM [facility] Basophils Relative 0.6 % LAB HEMETOLOGY METHOD 02/04/2025 8:48 AM EDT [facility] Immature Granulocytes Relative 0.6 % LAB HEMETOLOGY METHOD 02/04/2025 8:48 AM EDT [facility] Neutrophils Absolute 5.62 1.50 - 7.00 K/mcL LAB HEMETOLOGY METHOD 02/04/2025 8:48 AM EDT [facility] Lymphocytes Absolute 1.72 1.00 - 5.00 K/mcL LAB HEMETOLOGY METHOD 02/04/2025 8:48 AM EDT [facility] Monocytes Absolute 0.40 0.20 - 1.00 K/mcL LAB HEMETOLOGY METHOD 02/04/2025 8:48 AM EDT [facility] Eosinophils Absolute 0.33 0.00 - 0.50 K/mcL LAB HEMETOLOGY METHOD 02/04/2025 8:48 AM EDT [facility] Basophils Absolute 0.05 0.00 - 0.20 K/mcL LAB HEMETOLOGY METHOD 02/04/2025 8:48 AM EDT [facility] Immature Granulocytes Absolute 0.05(H) 0.00 - 0.03 K/mcL LAB HEMETOLOGY METHOD 02/04/2025 8:48 AM EDT [facility] Blood Venous blood specimen / Unknown Venipuncture / Unknown 02/04/2025 8:08 AM EDT 02/04/2025 8:41 AM EDT us Sarah Beth VELAZQUEZ LAB BLOOD ORDERABLES Final Result [facility] [address] [place] [address], * (ABNORMAL) Vancomycin, trough Please draw up to one hour prior to 0900 vanco dose (02/04/2025 8:08 AM EDT) Vancomycin Trough 9.7(L) 10.0 - 20.0 mcg/mL LAB CHEMISTRY METHOD 02/04/2025 9:14 AM [facility] Blood Venous blood specimen / Unknown Venipuncture / Unknown 02/04/2025 8:08 AM EDT 02/04/2025 8:41 AM EDT us Rosa Maria VELAZQUEZ LAB BLOOD ORDERABLES Final Resu lt [facility] [address] [place] [address], [place] [phone] * (ABNORMAL) Basic metabolic panel (02/04/2025 8:08 AM EDT) Only the most recent of2 resultswithin the time period is included. Sodium 138 133 - 145 mmol/L LAB CHEMISTRY METHOD 02/04/2025 9:14 AM [facility] Potassium 3.9 3.5 - 5.5 mmol/L LAB CHEMISTRY METHOD 02/04/2025 9:14 AM [facility] Chloride 102 96 - 110 mmol/L LAB CHEMISTRY METHOD 02/04/2025 9:14 AM [facility] CO2 27 21 - 32 mmol/L LAB CHEMISTRY METHOD 02/04/2025 9:14 AM [facility] Anion Gap 9 3 - 11 LAB CHEMISTRY METHOD 02/04/2025 9:14 AM [facility] Glucose 237(H) 70 - 100 mg/dL LAB CHEMISTRY METHOD 02/04/2025 9:14 AM [facility] BUN 7 5 - 25 mg/dL LAB CHEMISTRY METHOD 02/04/2025 9:14 AM [facility] Creatinine 0.70 0.70 - 1.30 mg/dL LAB CHEMISTRY METHOD 02/04/2025 9:14 AM [facility] eGFR 117 >=60 mL/min/1. 73m2 LAB CHEMISTRY METHOD 02/04/2025 9:14 AM EDT [facility] Comment:Calculation based on the??Chronic Kidney Disease Epidemiology Collaboration (CKD-EPI) equation refit??without adjustment for race. BUN/Creatinine Ratio 10.0 LAB CHEMISTRY METHOD 02/04/2025 9:14 AM EDT [facility] Calcium 9.1 8.5 - 10.5 mg/dL LAB CHEMISTRY METHOD 02/04/2025 9:14 AM EDT [facility] Blood Venous blood specimen / Unknown Venipuncture / Unknown 02/04/2025 8:08 AM EDT 02/04/2025 8:41 AM EDT Sarah Beth VELAZQUEZ LAB BLOOD ORDERABLES Final Result [facility] [address] [place] [address], * [place] Extremity Nonvascular Limited Left (02/03/2025 7:48 PM EDT) Anatomical Region Laterality Modality Extremity Left Ultrasound 02/03/2025 8:26 PM EDT Impressions 02/03/2025 8:26 PM EDT Impression: 1. No evidence of abscess. This document has been electronically signed by: Kristen Liu MD on 02/03/2025 20:26:17 Narrative 02/03/2025 8:26 PM EDT INDICATION: Left foot cellulitis. Underlying abscess? Ultrasound soft tissues left foot Comparison: None Findings: A focused ultrasound evaluation was performed of the dorsum of the left foot in the region of edema. Severe soft tissue edema is present but there is no walled-off fluid collection. Procedure Note Kristen Cosme MD - 02/03/2025 INDICATION: Left foot cellulitis. Underlying abscess? Ultrasound soft tissues left foot Comparison: None Findings: A focused ultrasound evaluation was performed of the dorsum of the left foot in the region of edema. Severe soft tissue edema is present butthere is no walled-off fluid collection. IMPRESSION: Impression: 1. No evidence of abscess. This document has been electronically signed by: Kristen Liu MD on 02/03/2025 20:26:17 us Rosa Maria VELAZQUEZ IMG US PROCEDURES Final Result * Magnesium (02/03/2025 6:01 AM EDT) Magnesium 2.1 1.9 - 2.6 mg/dL LAB CHEMISTRY METHOD 02/03/2025 7:25 AM EDT [facility] Blood Venous blood specimen / Unknown Venipuncture / Unknown 02/03/2025 6:01 AM EDT 02/03/2025 6:52 AM EDT Rosa Maria VELAZQUEZ LAB BLOOD ORDERABLES Final Resu lt Performing Organization Address [facility]/ZIP Co de Phone Number [facility] [address] [place] [address], * Culture blood (02/03/2025 12:35 AM EDT) Only the most recent of3 resultswithin the time period is included. [facility] Culture, Blood No growth at 5 days 02/08/2025 4:01 AM EDT [facility] Blood Venous blood specimen / Unknown Venipuncture / Unknown 02/03/2025 12:35 AM EDT 02/03/2025 12:50 AM EDT Rosa Maria VELAZQUEZ LAB MICROBIOLOGY - GENERAL ORDE RABLES Final Result Performing Organization Address City/[facility]/ZIP Co de Phone Number [facility] [address] [place] [address], * (ABNORMAL) Comprehensive metabolic panel (02/02/2025 9:18 PM EDT) Only the most recent of2 resultswithin the time period is included. Pathologist [facility] Sodium 136 133 - 145 mmol/L LAB CHEMISTRY METHOD 02/02/2025 9:54 PM [facility] Potassium 3.7 3.5 - 5.5 mmol/L LAB CHEMISTRY METHOD 02/02/2025 9:54 PM [facility] Chloride 103 96 - 110 mmol/L LAB CHEMISTRY METHOD 02/02/2025 9:54 PM [facility] CO2 27 21 - 32 mmol/L LAB CHEMISTRY METHOD 02/02/2025 9:54 PM [facility] Anion Gap 6 3 - 11 LAB CHEMISTRY METHOD 02/02/2025 9:54 PM [facility] Glucose 297(H) 70 - 100 mg/dL LAB CHEMISTRY METHOD 02/02/2025 9:54 PM [facility] BUN 15 5 - 25 mg/dL LAB CHEMISTRY METHOD 02/02/2025 9:54 PM [facility] Creatinine 0.72 0.70 - 1.30 mg/dL LAB CHEMISTRY METHOD 02/02/2025 9:54 PM [facility] eGFR 116 >=60 mL/min/1. 73m2 LAB CHEMISTRY METHOD 02/02/2025 9:54 PM [facility] Comment:Calculation based on the??Chronic Kidney Disease Epidemiology Collaboration (CKD-EPI) equation refit??without adjustment for race. BUN/Creatinine Ratio 20.8 LAB CHEMISTRY METHOD 02/02/2025 9:54 PM [facility] Calcium 9.3 8.5 - 10.5 mg/dL LAB CHEMISTRY METHOD 02/02/2025 9:54 PM [facility] AST (SGOT) 19 10 - 42 unit/L LAB CHEMISTRY METHOD 02/02/2025 9:54 PM [facility] ALT (SGPT) 28 10 - 60 unit/L LAB CHEMISTRY METHOD 02/02/2025 9:54 PM [facility] Alkaline Phosphatase 119 42 - 121 unit/L LAB CHEMISTRY METHOD 02/02/2025 9:54 PM EDT [facility] Total Protein 7.2 6.0 - 8.0 g/dL LAB CHEMISTRY METHOD 02/02/2025 9:54 PM EDT [facility] Albumin 3.8 3.2 - 5.0 g/dL LAB CHEMISTRY METHOD 02/02/2025 9:54 PM EDT [facility] Total Bilirubin 0.3 0.0 - 1.4 mg/dL LAB CHEMISTRY METHOD 02/02/2025 9:54 PM EDT [facility] Blood Venous blood specimen / Unknown Venipuncture / Unknown 02/02/2025 9:18 PM EDT 02/02/2025 9:26 PM EDT us Coby Clark Brasher DO LAB BLOOD ORDERABLES Vidya l Result [facility] [address] [place] [address], [place] [phone] * XR Foot 3+ Views bilat (02/01/2025 12:21 PM EDT) Anatomical Region Laterality Modality Lower Extremities, Foot Bilateral Radiogra phic Imaging 02/01/2025 12:2 8 PM EDT Impressions 02/01/2025 12:30 PM EDT Amputation changes of the left 1st digit at the mid aspect of the 1st proximal phalanx. ??Other bones appear within normal limits. Bones of the right foot appear within normal limits. ??No erosive changes are noted. ??Alignment is maintained. ??Small linear density is noted in the plantar soft tissues of the heel of the foot suggestive of a small foreign body. -------- FINAL REPORT -------- Dictated By: Sharif Kruger Dictated Date: 02/01/2025 12:28 ET Assigned Physician: Sharif Kruger Reviewed and Electronically Signed By: Sharif Kruger Signed Date: 02/01/2025 12:30 ET Workstation ID: [id number] Transcribed By: Self Edit Transcribed Date: 02/01/2025 12:28 ET Narrative 02/01/2025 12:30 PM EDT PROCEDURE: XR FOOT 3+ VIEWS BILAT INDICATION: pain COMPARISON: Foot radiograph August 2024 Procedure Note Sharif Kruger MD - 02/01/2025 PROCEDURE: XR FOOT 3+ VIEWS BILAT INDICATION: pain COMPARISON: Foot radiograph August 2024 IMPRESSION: Amputation changes of the left 1st digit at the mid aspect of the 1stproximal phalanx. Other bones appear within normal limits. Bones of the right foot appear within normal limits. No erosive changesare noted. Alignment is maintained. Small linear density is noted in theplantar soft tissues of the heel of the foot suggestive of a small foreignbody. -------- FINAL REPORT -------- Dictated By: Sahrif Kruger Dictated Date: 02/01/2025 12:28 ET Assigned Physician: Sharif Kruger Reviewed and Electronically Signed By: Sharif Kruger Signed Date: 02/01/2025 12:30 ET Workstation ID: [id number] Transcribed By: Self Edit Transcribed Date: 02/01/2025 12:28 ET us Drake Corey MD IMG XR PROCEDURES Final Res ult * Vascular US Duplex Lower Extremity Venous Left (02/01/2025 12:13 PM EDT) Anatomical Region Laterality Modality Vascular, Abdomen Ultrasound 02/01/2025 12:1 8 PM EDT Impressions 02/01/2025 12:19 PM EDT No evidence of deep vein thrombosis. -------- FINAL REPORT -------- Dictated By: Sharif Kruger Dictated Date: 02/01/2025 12:18 ET Assigned Physician: Sharif Kruger Reviewed and Electronically Signed By: Sharif Kruger Signed Date: 02/01/2025 12:19 ET Workstation ID: [id number] Transcribed By: Self Edit Transcribed Date: 02/01/2025 12:18 ET Narrative 02/01/2025 12:19 PM EDT Ultrasound duplex venous study left lower extremity TECHNIQUE: Grayscale and color imaging with spectral analysis was performed of the region of interest INDICATION: Pain COMPARISON: None FINDINGS: The veins appear normal throughout the left lower extremity. ??Normal venous flow. ??Normal compressibility. ??Soft tissues appear normal. ??No evidence of thrombosis. Procedure Note Sharif Kruger MD - 02/01/2025 Ultrasound duplex venous study left lower extremity TECHNIQUE: Grayscale and color imaging with spectral analysis wasperformed of the region of interest INDICATION: Pain COMPARISON: None FINDINGS: The veins appear normal throughout the left lower extremity. Normalvenous flow. Normal compressibility. Soft tissues appear normal. Noevidence of thrombosis. IMPRESSION: No evidence of deep vein thrombosis. -------- FINAL REPORT -------- Dictated By: Sharif Kruger Dictated Date: 02/01/2025 12:18 ET Assigned Physician: Sharif Kruger Reviewed and Electronically Signed By: Sharif Kruger Signed Date: 02/01/2025 12:19 ET Workstation ID: [id number] Transcribed By: Self Edit Transcribed Date: 02/01/2025 12:18 ET us Tremaine Herrera DO CV VASCULAR PROCEDURES Final R esult * Lactate, with reflex (02/01/2025 9:59 AM EDT) LACTIC ACID 1.5 0.4 - 2.0 mmol/L LAB CHEMISTRY METHOD 02/01/2025 11:05 AM EDT [facility] Blood Venous blood specimen / Unknown Venipuncture / Unknown 02/01/2025 9:59 AM EDT 02/01/2025 10:38 AM EDT Tremaine Herrera DO LAB BLOOD ORDERABLES Final Res ult [facility] [address] [place] [address], * (ABNORMAL) Sedimentation rate, automated (02/01/2025 9:59 AM EDT) [facility] Sed Rate 37(H) 0 - 15 mm/hr LAB HEMETOLOGY METHOD 02/01/2025 10:49 AM EDT [facility] Blood Venous blood specimen / Unknown Venipuncture / Unknown 02/01/2025 9:59 AM EDT 02/01/2025 10:37 AM EDT Drake Corey MD LAB BLOOD ORDERABLES Final Result Performing Organization Address [facility]/ZIP Co de Phone Number [facility] [address] [place] [address], * (ABNORMAL) C-reactive protein (02/01/2025 9:59 AM EDT) [facility] C-Reactive Protein 2.23(H) <=0.50 mg/dL LAB CHEMISTRY METHOD 02/01/2025 11:06 AM EDT [facility] Blood Venous blood specimen / Unknown Venipuncture / Unknown 02/01/2025 9:59 AM EDT 02/01/2025 10:37 AM EDT Drake Corey MD LAB BLOOD ORDERABLES Final Result Performing Organization Address [facility]/ZIP Co de Phone Number [facility] [address] [place] [address], * EGD Anesthesia - [facility]; [facility] ENDOSCOPY (11/27/2024 11:21 AM EST) Anatomical Region Laterality Modality Endoscopy 11/27/2024 11:0 5 AM EST Impressions 11/27/2024 11:28 AM EST - Normal examined duodenum. ? - Non-bleeding gastric ulcer with no stigmata of ? bleeding. Biopsied. ? - Gastritis. Biopsied. ? - Small hiatal hernia. ? - Benign-appearing esophageal stenosis. Dilated. Recommendation: ?- Discharge patient to home. ? - Follow an antireflux regimen. ? - Use a proton pump inhibitor PO daily. ? - Await pathology results. ? - Return to GI clinic as previously scheduled. Narrative 11/27/2024 11:28 AM EST [facility] Patient Name: Drake Sarmiento Procedure Date: 11/27/2024 11:05 AM Date of : 1980 Age: 44 Gender: Male Note Status: Finalized Attending MD: Magalie Feng MD, Procedure Date No Time: 11/27/2024 Procedure: ? Upper GI endoscopy Indications: ? Dysphagia, Stricture of the esophagus, For therapy of ? esophageal stricture Providers: ? Magalie Feng MD Referring MD: ?Magalie Feng MD Medicines: ? Monitored Anesthesia Care Complications: ? No immediate complications. Estimated blood loss: ? Minimal. Estimated Blood Loss: ? Estimated blood loss was minimal. Procedure: ? Pre-Anesthesia Assessment: ? - Prior to the procedure, a History and Physical was ? performed, and patient medications and allergies were ? reviewed. The patient is competent. The risks and ? benefits of the procedure and the sedation options and ? risks were discussed with the patient. All questions ? were answered and informed consent was obtained. ? Patient identification and proposed procedure were ? verified by the physician, the nurse, the tire groover ? and the paintless dent repair technician in the pre-procedure area in the ? endoscopy suite. Mental Status Examination: alert and ? oriented. Airway Examination: normal oropharyngeal ? airway and neck mobility. Respiratory Examination: ? clear to auscultation. CV Examination: normal. ? Prophylactic Antibiotics: The patient does not require ? prophylactic antibiotics. Prior Anticoagulants: The ? patient has taken no anticoagulant or antiplatelet ? agents. ASA Grade Assessment: III - A patient with ? severe systemic disease. After reviewing the risks and ? benefits, the patient was deemed in satisfactory ? condition to undergo the procedure. The anesthesia ? plan was to use monitored anesthesia care (MAC). ? Immediately prior to administration of medications, ? the patient was re-assessed for adequacy to receive ? sedatives. The heart rate, respiratory rate, oxygen ? saturations, blood pressure, adequacy of pulmonary ? ventilation, and response to care were monitored ? throughout the procedure. The physical status of the ? patient was re-assessed after the procedure. ? After obtaining informed consent, the endoscope was ? passed under direct vision. Throughout the procedure, ? the patient's blood pressure, pulse, and oxygen ? saturations were monitored continuously. The Endoscope ? was introduced through the mouth, and advanced to the ? second part of duodenum. The upper GI endoscopy was ? accomplished without difficulty. The patient tolerated ? the procedure fairly well. Findings: ?The examined duodenum was normal. ? One non-bleeding superficial gastric ulcer with no ? stigmata of bleeding was found on the greater ? curvature of the stomach. Biopsies were taken with a ? cold forceps for histology. Estimated blood loss was ? minimal. ? Localized mild inflammation characterized by ? congestion (edema) and erythema was found in the ? gastric antrum. Biopsies were taken with a cold ? forceps for histology. Estimated blood loss was ? minimal. ? A small hiatal hernia was present. ? One benign-appearing, intrinsic moderate ? (circumferential scarring or stenosis; an endoscope ? may pass) stenosis was found at the gastroesophageal ? junction. This stenosis measured 1.7 cm (inner ? diameter) x 1 cm (in length). The stenosis was ? traversed. A guidewire was placed and the scope was ? withdrawn. Dilation was performed with a Savary ? dilator with mild resistance at 18 mm, 19 mm and 20 mm. Procedure Code(s): ? --- Professional --- ? 20628, Esophagogastroduodenoscopy, flexible, ? transoral; with insertion of guide wire followed by ? passage of dilator(s) through esophagus over guide wire ? 10432, 59, Esophagogastroduodenoscopy, flexible, ? transoral; with biopsy, single or multiple Diagnosis Code(s): ? --- Professional --- ? K25.9, Gastric ulcer, unspecified as acute or chronic, ? without hemorrhage or perforation ? K29.70, Gastritis, unspecified, without bleeding ? K44.9, Diaphragmatic hernia without obstruction or ? gangrene ? K22.2, Esophageal obstruction CPT copyright 2020 [employer]. All rights reserved. The codes documented in this report are preliminary and upon cold storage worker review may be revised to meet current compliance requirements. Magalie Feng MD 11/27/2024 11:28:08 AM This report has been signed electronically.Magalie Feng MD Number of Addenda: 0 Note Initiated On: 11/27/2024 11:05 AM Scope In: Scope Out: ? Endoscopy Department at [facility] - [address] [place] [address], ? [place] [address] Procedure Note Magalie Feng MD - 11/27/2024 [facility] Patient Name: Drake Sarmiento Procedure Date: 11/27/2024 11:05 AM Date of : 1980 Age: 44 Gender: Male Note Status: Finalized Attending MD: Magalie Feng MD, Procedure Date No Time: 11/27/2024 Procedure: Upper GI endoscopy Indications: Dysphagia, Stricture of the esophagus, For therapyof esophageal stricture Providers: Magalie Feng MD Referring MD: Magalie Feng MD Medicines: Monitored Anesthesia Care Complications: No immediate complications. Estimated blood loss: Minimal. Estimated Blood Loss: Estimated blood loss was minimal. Procedure: Pre-Anesthesia Assessment: - Prior to the procedure, a History and Physicalwas performed, and patient medications and allergieswere reviewed. The patient is competent. The risks and benefits of the procedure and the sedation optionsand risks were discussed with the patient. Allquestions were answered and informed consent was obtained. Patient identification and proposed procedure were verified by the physician, the nurse, theanesthetist and the paintless dent repair technician in the pre-procedure area in the endoscopy suite. Mental Status Examination: alertand oriented. Airway Examination: normal oropharyngeal airway and neck mobility. Respiratory Examination: clear to auscultation. CV Examination: normal. Prophylactic Antibiotics: The patient does notrequire prophylactic antibiotics. Prior Anticoagulants: The patient has taken no anticoagulant or antiplatelet agents. ASA Grade Assessment: III - A patient with severe systemic disease. After reviewing the risksand benefits, the patient was deemed in satisfactory condition to undergo the procedure. The anesthesia plan was to use monitored anesthesia care (MAC). Immediately prior to administration of medications, the patient was re-assessed for adequacy to receive sedatives. The heart rate, respiratory rate, oxygen saturations, blood pressure, adequacy of pulmonary ventilation, and response to care were monitored throughout the procedure. The physical status ofthe patient was re-assessed after the procedure. After obtaining informed consent, the endoscope was passed under direct vision. Throughout theprocedure, the patient's blood pressure, pulse, and oxygen saturations were monitored continuously. TheEndoscope was introduced through the mouth, and advanced tothe second part of duodenum. The upper GI endoscopy was accomplished without difficulty. The patienttolerated the procedure fairly well. Findings: The examined duodenum was normal. One non-bleeding superficial gastric ulcer with no stigmata of bleeding was found on the greater curvature of the stomach. Biopsies were taken witha cold forceps for histology. Estimated blood losswas minimal. Localized mild inflammation characterized by congestion (edema) and erythema was found in the gastric antrum. Biopsies were taken with a cold forceps for histology. Estimated blood loss was minimal. A small hiatal hernia was present. One benign-appearing, intrinsic moderate (circumferential scarring or stenosis; an endoscope may pass) stenosis was found at thegastroesophageal junction. This stenosis measured 1.7 cm (inner diameter) x 1 cm (in length). The stenosis was traversed. A guidewire was placed and the scope was withdrawn. Dilation was performed with a Savary dilator with mild resistance at 18 mm, 19 mm and 20mm. Procedure Code(s): --- Professional --- 11120, Esophagogastroduodenoscopy, flexible, transoral; with insertion of guide wire followed by passage of dilator(s) through esophagus over guidewire 52932, 59, Esophagogastroduodenoscopy, flexible, transoral; with biopsy, single or multiple Diagnosis Code(s): --- Professional --- K25.9, Gastric ulcer, unspecified as acute orchronic, without hemorrhage or perforation K29.70, Gastritis, unspecified, without bleeding K44.9, Diaphragmatic hernia without obstruction or gangrene K22.2, Esophageal obstruction CPT copyright 2020 [employer]. All rights reserved. The codes documented in this report are preliminary and upon cold storage worker reviewmay be revised to meet current compliance requirements. Magalie Feng MD 11/27/2024 11:28:08 AM This report has been signed electronically.Magalie Feng MD Number of Addenda: 0 Note Initiated On: 11/27/2024 11:05 AM Scope In: Scope Out: Endoscopy Department at [address] [id number] IMPRESSION: - Normal examined duodenum. - Non-bleeding gastric ulcer with no stigmata of bleeding. Biopsied. - Gastritis. Biopsied. - Small hiatal hernia. - Benign-appearing esophageal stenosis. Dilated. Recommendation: - Discharge patient to home. - Follow an antireflux regimen. - Use a proton pump inhibitor PO daily. - Await pathology results. - Return to GI clinic as previously scheduled. Magalie Feng MD GI~PROCEDURE ORDERABLES Fin al Result * Tissue exam (11/27/2024 11:11 AM EST) Final Diagnosis A. Stomach, greater curve, biopsy: Reactive gastritis with ulceration. No Helicobacter pylori type gastritis identified. B. Stomach, biopsy: Gastric mucosa with mild chronic inactive gastritis. No Helicobacter pylori type gastritis identified. 11/28/2024 1:38 PM EST [facility] LAB Gross Description A. Stomach, biopsy greater curve gastric: Labeled biopsy gr stomach . Received in formalin are two soft, guerra-red tissue fragments measuring 0.3 cm and 0.4 cm in greatest diameter, which are wrapped in paper and submitted in toto in one cassette, two pieces, multiple levels. B. Stomach, biopsy gastric: Labeled biopsy ga stomach . Received in formalin are two soft, guerra-pink tissue fragments measuring 0.25 cm and 0.45 cm in greatest diameter, which are wrapped in paper and submitted in toto in one cassette, two pieces, multiple levels. TS 11/28/2024 1:38 PM EST [facility] Disclaimer Unless otherwise specified, all tissue is 10% NB formalin fixed and paraffin embedded. 11/28/2024 1:38 PM EST [facility] Tissue Stomach structure / Unknown 11/27/2024 11:11 AM EST 11/27/2024 12:02 PM EST Tissue specimen (specimen) Stomach structure / Unknown 11/27/2024 11:12 AM EST 11/27/2024 12:02 PM EST Magalie Feng MD LAB PATHOLOGY ORDERABLES Fi nal Result [facility] [address] [place] [address], from Last 3 Months Insurance MEDICARE MEDICAID - [place] Advance Directives Documents on File Type Date Recorded Patient Manager Search Engine Expl [facility] Health Care Decision (hx) 09/03/2024 AD SANTOYO DIRECTIVE * Full Code - Confirmed (Latest Code Status on File) Date Activated Date Inactivated Comments 02/02/2025 11:56 PM 02/04/2025 2:10 PM This code s tatus was ascertained in the following way: Code status discussion: discussion with patient To update the patient's code status, place a code status order. Do not modify or discontinue any currently active code status orders. Care Teams Teaching Specialists Relationship Specialty Start Date End Date Jas Babb MD [address] [place] [address] [address] [place], [place] PCP - General Internal Medicine 06/10/16
== END 2025-02-19 13:16 | disposition home or self-care (01) ==
LOC: HO.HGS 12:47
PROVIDERS: PCP Physician Assistant Medical; Referring Provider Physician Assistant Medical; Visit Provider Surgery
DX: L98.9 Disorder of the skin and subcutaneous tissue, unspecified (principal)
CPT/HCPCS: 99203

== ENCOUNTER → 2025-02-19 12:46 | Outpatient (BNVA) | payer MEDICARE, MEDICAID, SELFPAY | PROVIDERS: PCP Physician Assistant Medical; Referring Provider Physician Assistant Medical; Visit Provider Surgery | DX: L98.9 Disorder of the skin and subcutaneous tissue, unspecified (principal) | CPT/HCPCS: 99202 ==

== ENCOUNTER 2025-03-06 13:07 | Outpatient (AMB) | payer MEDICARE, MEDICAID, SELFPAY ==
[2025-03-06 13:19] VITALS: BP 146/90; BMI 35.8
--- NOTE | 2025-03-06 13:19 | A.OFFVIS_ITS ---
Vital Signs 03/06/25 13:19 Height 6 ft Weight 264 lb BMI 35.8 BP 146/90 H Blood Pressure Location Lt brachial Position Sitting Intake Visit Reasons: excision skin lesion posterior neck Intake Note: Pt states, I'm here to have a skin tag cut off. c/o feeling pain during the procedure Supervisor Case Loading Required: No Allergies acetaminophen [From Tylenol] Allergy (Verified 03/06/25 13:22) hives prednisone Allergy (Verified 03/06/25 13:22) hives/vomiting Medication List - Last Reconciled 03/06/25 by Matteo Pat, RN ammonium lactate 12% 1 appl topical BID benazepril 40 mg PO DAILY clonazepam (Klonopin) 1 mg PO BEDTIME clonazepam mg PO diclofenac sodium 1% topical escitalopram oxalate 5 mg PO DAILY hydroxyzine HCl 25 mg PO TID insulin glargine (Lantus U-100 Insulin) 20 units subcut BID insulin lispro (Humalog KwikPen (U-100) Insulin) 1 sliding scale dose subcut USEASDIRECTD Lactobacillus rhamnosus GG (Culturelle) 1 cap PO BID lansoprazole 30 mg PO DAILY lidocaine 5% 2 patches topical DAILY lidocaine-prilocaine 2.5-2.5 % 1 appl topical ONCE metformin 1,000 mg PO BID nicotine (polacrilex) (Nicorette) 4 mg buccal Q1H risperidone (Risperdal) 1 mg PO BID sildenafil (Viagra) 100 mg PO DAILY PRN tizanidine 4 mg PO BID tizanidine 2 mg PO Q8H PRN tizanidine 2 mg PO BID HPI HPI excision skin lesion posterior neck: Details: He is here for excision of a skin lesion from the posterior neck. [facility] Medical History Benign skin lesion of neck Sleep apnea Right groin hernia Diabetes Neuropathy Acid reflux HTN (hypertension) Surgical History History of amputation of left fifth toe Social History (Updated 02/19/25 @ 12:58 by MAXI Rojas) Alcohol intake: current Alcohol intake frequency: a few times a month Alcohol type: beer and hard liquor Tobacco use type: Smokeless Tobacco Physical Exam Vital Signs: Last Vital Signs BP 146/90 H 03/06/25 13:19 BMI result Body Mass Index 35.8 Office Procedures Excision Details: He was in prone position. The area of the skin lesion was prepped and draped. Lidocaine 1% was used for local anesthesia. I made an elliptical incision on the skin surrounding this lesion with a blade 15. This was carried down through the full-thickness of the skin and part of the subcutaneous fat to excise the entire lesion. The lesion was about 2.5 cm in widest dimension The incision was closed with full-thickness nylon 3-0 simple interrupted sutures. Dressings were applied. The procedure was completed. He tolerated procedure well. There were no immediate complications. [id number] scalp/neck/hands/feet/genitalia 2.1cm-3cm Procedure code (CPT) selection complete Assessment & Plan Assessment & Plan (1) Benign skin lesion of neck: Code(s): L98.9 - Disorder of the skin and subcutaneous tissue, unspecified Category: Medical Plan: Excision was done under local anesthesia. He tolerated procedure well. There was minimal blood loss. He was given wound care instructions. I will see him for removal of sutures in about 2 weeks. Coding Level of Care Code Procedure Only Diagnoses Benign skin lesion of neck L98.9 CPT Codes Scalp/Neck/Hands/Feet/Genetalia - CPT: 17299-Odpknbio scalp/neck/hands/feet/genitalia 2.1cm-3cm ([id number])
--- OUTSIDE RECORDS SUMMARY | 2025-03-06 16:02 | XMS_ITS | Clinical Summary ---
Author Organization 175 [facility] Address [address] [place] [address] Phone Care Team Providers Care District Sales Manager Name Role Phone Jas Babb MD Primary Care Provider [phone] Allergies Active Allergy Reactions Criticality Noted Date Comments Acetaminophen Rash 08/28/2024 Prednisone Nausea Only 07/13/2016 Other Reaction(s): Hives/Urticaria Medications insulin glargine (LANTUS) 100 unit/mL injection Inject 45 Units under the skin at bedtime. Active insulin lispro 100 unit/mL injection Inject under the skin 3 (three) times a day before meals. -Administer within 15 minutes of a meal Active sucralfate (CARAFATE) 1 gram tablet Take [...] time each day. 60 each 02/05/20 25 Active metoprolol succinate (TOPROL-XL) 25 mg 24 hr tablet Take 1 tablet (25 mg total) by mouth 1 (one) time each day. Do not crush or chew. 30 each 02/05/20 25 Active pantoprazole (PROTONIX) 40 mg EC tablet Take 1 tablet (40 mg total) by mouth 1 (one) time each day. Do not crush, chew, or split. 30 each 03/05/20 25 025 Active mupirocin (BACTROBAN) 2 % ointment Apply topically 1 (one) time each day for 10 days. 22 g 2 03/06/20 25 025 Active lansoprazole (PREVACID) [address] capsuleIndicati ons:Gastroesoph ageal reflux disease, unspecified whether esophagitis present Take 1 capsule (30 mg total) by mouth 1 (one) time each day. 30 capsule 3 01/10/20 025 Discontinued(Di scontinued by another clinician) saccharomyces boulardii (FLORASTOR) 250 mg capsule Take [...] mg 12 tablet 02/05/20 25 025 Discontinued amoxicillin-cla vulanate (AUGMENTIN) 875-125 mg per tablet Take 1 tablet by mouth 2 (two) times a day for 10 days. 20 each 02/05/20 25 025 sulfamethoxazol e-trimethoprim (BACTRIM DS,SEPTRA DS) 800-160 mg per tablet Take 1 tablet by mouth 2 (two) times a day for 10 days. 20 each 02/05/20 25 025 neomycin-bacitr acin-polymyxin B (NEOSPORIN) ointment Apply topically 1 (one) [...] left 02/02/2025 Anxiety state 09/25/2024 Bipolar disorder ([facility] V24, [facility] V28) 04/2024 Chronic back pain 09/25/2024 Depressive disorder 09/25/2024 Esophageal reflux 09/25/2024 Essential hypertension 09/25/2024 Hypothyroid 09/25/2024 Obstructive sleep apnea 09/25/2024 Peripheral neuropathy 09/25/2024 Morbid obesity with BMI of 4 0.0-44.9, adult ([facility] V24, [facility] V28) 09/25/2024 Asthma 04/29/2019 Diabetes mellitus type 2 wit h neurological manifestations ([place] [id number], [place] [id number]) 12/20/2017 Encounters Date Type Department Care Team Description 03/06/2025 8:30 AM EDT Office Visit Orthopedic Surgery [place] [address] [phone] Jonathon Davidson DPM 03/06/2025 Telephone Gastroenterology [facility] 175 [facility] 175 [facility] [address] [place] [phone] Faith Hrenandez NP PROVIDER CALL BACK 03/05/2025 1:52 PM EDT - 03/05/2025 6:24 PM EDT Emergency [facility] Emergency [address] [place] [phone] Drake Corey MD Acute chest pain (Primary Dx) Discharge Disposition: Home or Self Care 02/27/2025 1:15 PM EDT Office Visit Orthopedic Surgery [facility] [address] [phone] Jonathon Davidson DPM Poorly controlled type 2 diabetes mellitus with neuropathy ([facility] V24, [facility] V28) (Primary Dx); Cellulitis of left foot; 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, left, with fat layer exposed (CMS/HCC V24, CMS/HCC V28); Chronic ulcer of right great toe, with fat layer exposed (CMS/HCC V24, CMS/HCC V28) 02/20/2025 1:30 PM EDT Office Visit Orthopedic Surgery [facility] [address] [phone] Jonathon Davidson DPM Poorly controlled type 2 diabetes mellitus with neuropathy (CMS/HCC V24, CMS/HCC V28) (Primary Dx); Cellulitis of left foot; 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, left, with fat layer exposed (CMS/HCC V24, CMS/HCC V28); Chronic ulcer of right great toe, with fat layer exposed (CMS/HCC V24, CMS/HCC V28) 02/13/2025 Telephone Orthopedic Surgery [facility] [address] [phone] Jonathon Davidson DPM Scooter 02/12/2025 1:00 PM EDT Office Visit Orthopedic [facility] [address] [phone] Jonathon Davidson DPM Poorly controlled type 2 diabetes mellitus with neuropathy (CMS/HCC V24, CMS/HCC V28) (Primary Dx); Cellulitis of left foot; 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, left, with fat layer exposed (CMS/[facility] V24, CMS/HCC V28) 02/02/2025 8:14 PM EDT - 02/04/2025 12:09 PM EDT Hospital Encounter [facility] [address] [place] [phone] Coby Brasher DO Ishtiaq, Rizwan, MD Kela, Kashyap Devendrabhai, MD Cellulitis of foot, left (Primary Dx); Cellulitis of foot, right Discharge Disposition: Home or Self Care 02/01/2025 9:07 AM EDT - 02/01/2025 2:35 PM EDT Emergency [facility] Emergency [address] [place] [address] Tremaine Herrera DO Leg pain, diffuse, left (Primary Dx); Bilateral cellulitis of lower leg Discharge Disposition: Left Against Medical Advice 01/21/2025 1:20 PM EST Office Visit Gastroenterology [facility] 175 [facility] 175 [facility] [address] [place] [address] Faith Hernandez NP Chronic gastric ulcer without hemorrhage and without perforation (Primary Dx); Hiatal hernia with GERD; Colonoscopy refused 01/10/2025 Telephone Gastroenterology [facility] 175 [facility] 175 [facility] [address] [place] [address] Faith Hernandez NP Forms/questionnaire s 12/23/2024 10:30 AM EST Office Visit Orthopedic Surgery [facility] [address] 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, left, with fat layer exposed ([facility] V24, [facility] V28); Non-pressure chronic ulcer of left ankle with fat layer exposed ([facility] V24, [facility] V28) from Last 3 Months Surgical History Surgery Date Site/Laterality Comments HERNIA REPAIR 04/2014 Right PROCEDURE: REPAIR INGUINAL HERNIA; COMMENT: incarcerated ESOPHAGOGASTRODUODENOSCOPY TOE AMPUTATION Left great toe partial amputation Medical History Medical History Date Comments Anxiety state DX:Anxiety state Asthma 04/29/2019 DX:Asthma Bipolar disorder ([facility] V2 4, [facility] V28) DX:Bipolar disorder (HCC) Chronic back pain DX:Chronic frederick k pain Depressive disorder DX:Depressiv e disorder Diabetes mellitus type 2 wit h neurological manifestations ([facility] V24, [facility] V28) 12/20/2017 DX:Diabetes mellitus type 2 with neurological manifestations ([facility]) Esophageal reflux DX:Esophageal reflux Essential hypertension DX:Essent ial hypertension Morbid obesity with BMI of 4 0.0-44.9, adult ([facility] V24, [facility] V28) DX:Morbid obesity wit h BMI of 40.0-44.9, adult (HCC) Obstructive sleep apnea DX:Obstr [...] Sign Reading Time Taken Comments Blood Pressure 142/97 03/05/2025 4:51 PM EDT Pulse 74 03/05/2025 4:51 PM EDT Temperature 36.7 ??C (98.1 ??F) 03/05/2025 4:51 PM ED T Respiratory Rate 18 03/05/2025 4:51 PM EDT Oxygen Saturation 96% 03/05/2025 4:51 PM EDT Inhaled Oxygen Concentration - - Weight 120 kg (265 lb) 03/06/2025 8:36 AM EDT Height 182.9 cm (6' 0.01 ) 03/06/2025 8:36 AM ED T Body Mass Index 35.93 03/06/2025 8:36 AM EDT Plan of Treatment Upcoming Encounters Date Type Department Care Team (Late st Contact Info) Description 03/13/2025 10:00 AM EDT Office Visit Orthopedic Surgery - [place] [address] [phone] Jonathon Davidson, MARQUITA 175 [facility] [address] [place] [address] 03/25/2025 2:20 PM EDT Office Visit Gastroenterology - [place] [address] [facility] [address] [place] [address] Faith Hernandez, AZAEL 175 [facility] [address] [place] [address] Health Maintenance Due Date Last Done Comments [...] 02/02/2025 Diabetes: Annual GFR (Glomerular Filtration Rate) 03/05/2026 03/05/2025, 02/04/2025, 02/03/2025, Additional history exists Hypertension/CHF/CAD Annual BMP Blood Test 03/05/2026 03/05/2025, 02/04/2025, 02/03/2025, Additional history exists HIB Vaccines Aged Out [...] age to complete this topic Meningococcal B Vaccine Aged Out No l onger eligible based on patient's age to complete this topic RSV Immunization Patients Under 20 months Aged Out No longer eligible based on patient's age to complete this topic Varicella Vaccines Aged Out No longer eligible based on patient's age to complete this topic Procedures Procedure Name Priority Date/Time Associated Diagnosis Comments ECG ANNOTATED 03/06/2025 D-DIMER STAT 03/05/2025 3:49 PM EDT TROPONIN I HIGH SENSITIVITY STAT 03/05/2025 3:49 PM EDT XR CHEST 2 VIEWS STAT 03/05/2025 3:13 PM EDT CBC WITH AUTO DIFFERENTIAL STAT 03/05/2025 2:15 PM EDT B-TYPE NATRIURETIC PEPTIDE STAT 03/05/2025 2:15 PM EDT MAGNESIUM STAT 03/05/2025 2:15 PM EDT LIPASE STAT 03/05/2025 2:15 PM EDT COMPREHENSIVE METABOLIC PANEL STAT 03/05/2025 2:15 PM EDT CBC AND DIFFERENTIAL STAT 03/05/2025 2:15 PM EDT TROPONIN I HIGH SENSITIVITY STAT 03/05/2025 2:15 PM EDT ECG 12-LEAD STAT 03/05/2025 1:31 PM EDT ECG OUTSIDE 02/05/2025 POCT GLUCOSE BLOOD Routine [...] BLOOD Routine 02/01/2025 8: 53 AM EDT from Last 3 Months Results * ECG-Annotated (03/06/2025) us Provider Onbase MD ECG ORDERABLES Final Result * Troponin I high sensitivity (03/05/2025 3:49 PM EDT) Only the most recent of2 resultswithin the time period is included. High Sensitivity Troponin I 7 <=79 ng/L LAB CHEMISTRY METHOD 03/05/2025 4:37 PM EDT [facility] Blood Venous blood specimen / Unknown Venipuncture / Unknown 03/05/2025 3:49 PM EDT 03/05/2025 3:56 PM EDT Narrative [facility] - 03/05/2025 4:37 PM EDT High levels of biotin in samples may falsely decrease hsTroponin values. ??Use caution when interpreting hsTroponin results in patients taking biotin who exhibit renal impairment (eGFR <60) or in patients taking more than 20 mg/day of biotin. us Drake Corey MD LAB BLOOD ORDERABLES Final Result Performing Organization Address [facility] de Phone Number [facility] [address] [place] [address], [place] [phone] * D-dimer, quantitative (03/05/2025 3:49 PM EDT) D-Dimer, Quant (D-DU) <150 <=230 ng/mL DDU LAB COAGULATION METHOD 03/05/2025 4:12 PM EDT [facility] Blood Venous blood specimen / Unknown Venipuncture / Unknown 03/05/2025 3:49 PM EDT 03/05/2025 3:56 PM EDT Narrative [facility] - 03/05/2025 4:12 PM EDT D-Dimer <230 ng/mL (D-Dimer units) is the threshold for exclusion of DVT/PE. D-Dimer may be elevated in: Critically ill, severely infected, trauma patients, DIC, acute CVA, acute VA, unstable angina, AF, old age, , and smoking. D-Dimer may be decreased with: Initiation of heparin therapy and oral anticoagulants. us Drake Corey MD LAB BLOOD ORDERABLES Final Result Performing Organization Address [facility] de Phone Number [facility] [address] [place] [address], [place] [phone] * XR Chest 2 Views (03/05/2025 3:13 PM EDT) Anatomical Region Laterality Modality Body Radiographic Siomara ging 03/05/2025 4:22 PM EDT Impressions 03/05/2025 4:22 PM EDT FINDINGS/IMPRESSION: Normal heart size without congestive heart failure. ??No pneumonia. -------- FINAL REPORT -------- Dictated By: Seamus Souza Dictated Date: 03/05/2025 16:22 ET Assigned Physician: Seamus Souza Reviewed and Electronically Signed By: Seamus Souza Signed Date: 03/05/2025 16:22 ET Workstation ID: [id number] Transcribed By: Self Edit Transcribed Date: 03/05/2025 16:22 ET Narrative 03/05/2025 4:22 PM EDT XR CHEST 2 VIEWS INDICATION: chest pain TECHNIQUE: XR CHEST 2 VIEWS COMPARISON: No priors available. Procedure Note Seamus Souza MD - 03/05/2025 XR CHEST 2 VIEWS INDICATION: chest pain TECHNIQUE: XR CHEST 2 VIEWS COMPARISON: No priors available. IMPRESSION: FINDINGS/IMPRESSION: Normal heart size without congestive heart failure.No pneumonia. -------- FINAL REPORT -------- Dictated By: Seamus Souza Dictated Date: 03/05/2025 16:22 ET Assigned Physician: Seamus Souza Reviewed and Electronically Signed By: Seamus Souza Signed Date: 03/05/2025 16:22 ET Workstation ID: [id number] Transcribed By: Self Edit Transcribed Date: 03/05/2025 16:22 ET Drake Corey MD IMG XR PROCEDURES Final Res ult * (ABNORMAL) CBC auto differential (03/05/2025 2:15 PM EDT) Only the most recent of5 resultswithin the time period is included. WBC 10.3 4.8 - 10.8 K/mcL LAB HEMETOLOGY METHOD 03/05/2025 2:34 PM EDT [facility] RBC 5.50 4.50 - 5.50 M/mcL LAB HEMETOLOGY METHOD 03/05/2025 2:34 PM EDT [facility] Hemoglobin 15.3 13.5 - 17.5 g/dL LAB HEMETOLOGY METHOD 03/05/2025 2:34 PM EDT [facility] Hematocrit 44.5 42.0 - 54.0 % LAB HEMETOLOGY METHOD 03/05/2025 2:34 PM EDT [facility] MCV 81.1 79.0 - 98.0 FL LAB HEMETOLOGY METHOD 03/05/2025 2:34 PM EDT [facility] MCH 27.9 27.0 - 32.0 pcg LAB HEMETOLOGY METHOD 03/05/2025 2:34 PM EDT [facility] MCHC 34.4 32.0 - 37.0 g/dL LAB HEMETOLOGY METHOD 03/05/2025 2:34 PM EDT [facility] RDW 13.2 11.0 - 15.0 % LAB HEMETOLOGY METHOD 03/05/2025 2:34 PM EDT [facility] Platelets 354 130 - 400 K/mcL LAB HEMETOLOGY METHOD 03/05/2025 2:34 PM EDT [facility] MPV 9.3 7.0 - 11.0 FL LAB HEMETOLOGY METHOD 03/05/2025 2:34 PM EDT [facility] NRBC 0.0 <1.0 % LAB HEMETOLOGY METHOD 03/05/2025 2:34 PM EDT [facility] NRBC Absolute 0.00 <0.10 K/mcL LAB HEMETOLOGY METHOD 03/05/2025 2:34 PM EDT [facility] Neutrophils Relative 69.1 % LAB HEMETOLOGY METHOD 03/05/2025 2:34 PM EDT [facility] Lymphocytes Relative 24.2 % LAB HEMETOLOGY METHOD 03/05/2025 2:34 PM EDT [facility] Monocytes Relative 4.2 % LAB HEMETOLOGY METHOD 03/05/2025 2:34 PM EDT [facility] Eosinophils Relative 1.5 % LAB HEMETOLOGY METHOD 03/05/2025 2:34 PM EDT [facility] Basophils Relative 0.5 % LAB HEMETOLOGY METHOD 03/05/2025 2:34 PM EDT [facility] Immature Granulocytes Relative 0.5 % LAB HEMETOLOGY METHOD 03/05/2025 2:34 PM EDT [facility] Neutrophils Absolute 7.11(H) 1.50 - 7.00 K/mcL LAB HEMETOLOGY METHOD 03/05/2025 2:34 PM EDT [facility] Lymphocytes Absolute 2.49 1.00 - 5.00 K/mcL LAB HEMETOLOGY METHOD 03/05/2025 2:34 PM EDT [facility] Monocytes Absolute 0.43 0.20 - 1.00 K/mcL LAB HEMETOLOGY METHOD 03/05/2025 2:34 PM EDT [facility] Eosinophils Absolute 0.15 0.00 - 0.50 K/mcL LAB HEMETOLOGY METHOD 03/05/2025 2:34 PM EDT [facility] Basophils Absolute 0.05 0.00 - 0.20 K/mcL LAB HEMETOLOGY METHOD 03/05/2025 2:34 PM EDT [facility] Immature Granulocytes Absolute 0.05(H) 0.00 - 0.03 K/mcL LAB HEMETOLOGY METHOD 03/05/2025 2:34 PM EDT [facility] Blood Venous blood specimen / Unknown Venipuncture / Unknown 03/05/2025 2:15 PM EDT 03/05/2025 2:28 PM EDT us Drake Corey MD LAB BLOOD ORDERABLES Final Result [facility] [address] [place] [address], * B-type natriuretic peptide (03/05/2025 2:15 PM EDT) BNP 11 <=100 pcg/mL LAB CHEMISTRY METHOD 03/05/2025 3:01 PM EDT [facility] Blood Venous blood specimen / Unknown Venipuncture / Unknown 03/05/2025 2:15 PM EDT 03/05/2025 2:28 PM EDT Drake Corey MD LAB BLOOD ORDERABLES Final Result Performing Organization Address [facility]/ZIP Co de Phone Number [facility] [address] [place] [address], [place] [phone] * Magnesium (03/05/2025 2:15 PM EDT) Only the most recent of2 resultswithin the time period is included. Magnesium 2.0 1.9 - 2.6 mg/dL LAB CHEMISTRY METHOD 03/05/2025 3:01 PM EDT [facility] Blood Venous blood specimen / Unknown Venipuncture / Unknown 03/05/2025 2:15 PM EDT 03/05/2025 2:28 PM EDT Drake Corey MD LAB BLOOD ORDERABLES Final Result Performing Organization Address [facility] Co de Phone Number [facility] [address] [place] [address], [place] [phone] * Lipase (03/05/2025 2:15 PM EDT) Lipase 39 13 - 75 unit/L LAB CHEMISTRY METHOD 03/05/2025 3:01 PM EDT [facility] Blood Venous blood specimen / Unknown Venipuncture / Unknown 03/05/2025 2:15 PM EDT 03/05/2025 2:28 PM EDT Drake Corey MD LAB BLOOD ORDERABLES Final Result Performing Organization Address City/[facility]/ZIP Co de Phone Number [facility] [address] [place] [address], [place] [phone] * (ABNORMAL) Comprehensive metabolic panel (03/05/2025 2:15 PM EDT) Only the most recent of3 resultswithin the time period is included. Sodium 134 133 - 145 mmol/L LAB CHEMISTRY METHOD 03/05/2025 3:30 PM [facility] Potassium 4.0 3.5 - 5.5 mmol/L LAB CHEMISTRY METHOD 03/05/2025 3:30 PM [facility] Chloride 99 96 - 110 mmol/L LAB CHEMISTRY METHOD 03/05/2025 3:30 PM [facility] CO2 29 21 - 32 mmol/L LAB CHEMISTRY METHOD 03/05/2025 3:30 PM [facility] Anion Gap 6 3 - 11 LAB CHEMISTRY METHOD 03/05/2025 3:30 PM [facility] Glucose 187(H) 70 - 100 mg/dL LAB CHEMISTRY METHOD 03/05/2025 3:30 PM [facility] BUN 11 5 - 25 mg/dL LAB CHEMISTRY METHOD 03/05/2025 3:30 PM [facility] Creatinine 0.82 0.70 - 1.30 mg/dL LAB CHEMISTRY METHOD 03/05/2025 3:30 PM [facility] eGFR 112 >=60 mL/min/1. 73m2 LAB CHEMISTRY METHOD 03/05/2025 3:30 PM [facility] Comment:Calculation based on the??Chronic Kidney Disease Epidemiology Collaboration (CKD-EPI) equation refit??without adjustment for race. BUN/Creatinine Ratio 13.4 LAB CHEMISTRY METHOD 03/05/2025 3:30 PM [facility] Calcium 9.6 8.5 - 10.5 mg/dL LAB CHEMISTRY METHOD 03/05/2025 3:30 PM [facility] AST (SGOT) 15 10 - 42 unit/L LAB CHEMISTRY METHOD 03/05/2025 3:30 PM EDT [facility] ALT (SGPT) 28 10 - 60 unit/L LAB CHEMISTRY METHOD 03/05/2025 3:30 PM EDT [facility] Alkaline Phosphatase 100 42 - 121 unit/L LAB CHEMISTRY METHOD 03/05/2025 3:30 PM EDT [facility] Total Protein 7.7 6.0 - 8.0 g/dL LAB CHEMISTRY METHOD 03/05/2025 3:30 PM EDT [facility] Albumin 4.2 3.2 - 5.0 g/dL LAB CHEMISTRY METHOD 03/05/2025 3:30 PM EDT [facility] Total Bilirubin 0.6 0.0 - 1.4 mg/dL LAB CHEMISTRY METHOD 03/05/2025 3:30 PM EDT [facility] Blood Venous blood specimen / Unknown Venipuncture / Unknown 03/05/2025 2:15 PM EDT 03/05/2025 2:28 PM EDT us Drake Corey MD LAB BLOOD ORDERABLES Final Result [facility] [address] [place] [address], * ECG 12 lead (03/05/2025 1:31 PM EDT) Ventricular Rate ECG 72 BPM GEMUSE Atrial Rate 72 BPM GEMUSE P-R Interval 150 ms GEMUSE QRS Duration 102 ms GEMUSE Q-T Interval 388 ms GEMUSE QTc 424 ms GEMUSE P Wave [place] 61 degrees GEMUSE R [place] -2 degrees GEMUSE T [place] 40 degrees GEMUSE ECG Interpretation Normal sinus rhythm Incomplete right bundle branch block Borderline ECG When compared with ECG of 11-OCT-2024 00:14, No significant change was found Confirmed by Manda SILVA JOHN ([id number]) on 03/05/2025 5:42:01 PM GEMUSE 03/05/2025 1:31 PM EDT 03/05/2025 5:42 PM EDT us Drake Corey MD ECG ORDERABLES Final Resul t Performing Organization Address [facility] Co de Phone Number [facility] * ECG-Outside (02/05/2025) us Provider Onbase ECG ORDERABLES Final Result * (ABNORMAL) POCT Glucose, blood (02/04/2025 11:16 AM EDT) Only the most recent of8 resultswithin the time period is included. [facility] Glucose POCT 334(H) 70 - 100 mg/dL 02/04/2025 11:17 AM EDT [facility] Blood Capillary blood specimen / Unknown 02/04/2025 11:16 AM EDT 02/04/2025 11:18 AM EDT Toro Alves MD LAB POINT O F CARE TEST DOCKED DEVICE UNSOLICITED RESULTS Final Result Performing Organization Address [facility] de Phone Number [facility] [address] [place] [address], [place] [phone] * (ABNORMAL) Vancomycin, trough Please draw up to one hour prior to 0900 vanco dose (02/04/2025 8:08 AM EDT) [facility] Vancomycin Trough 9.7(L) 10.0 - 20.0 mcg/mL LAB CHEMISTRY METHOD 02/04/2025 9:14 AM EDT [facility] Blood Venous blood specimen / Unknown Venipuncture / Unknown 02/04/2025 8:08 AM EDT 02/04/2025 8:41 AM EDT us Rosa Maria VELAZQUEZ LAB BLOOD ORDERABLES Final Resu lt Performing Organization Address [facility] Co de Phone Number [facility] [address] [place] [address], * (ABNORMAL) Basic metabolic panel (02/04/2025 8:08 AM EDT) Only the most recent of2 resultswithin the time period is included. Sodium 138 133 - 145 mmol/L LAB CHEMISTRY METHOD 02/04/2025 9:14 AM [facility] Potassium 3.9 3.5 - 5.5 mmol/L LAB CHEMISTRY METHOD 02/04/2025 9:14 AM [facility] Chloride 102 96 - 110 mmol/L LAB CHEMISTRY METHOD 02/04/2025 9:14 AM [facility] CO2 27 21 - 32 mmol/L LAB CHEMISTRY METHOD 02/04/2025 9:14 AM [facility] Anion Gap 9 3 - 11 LAB CHEMISTRY METHOD 02/04/2025 9:14 AM [facility] Glucose 237(H) 70 - 100 mg/dL LAB CHEMISTRY METHOD 02/04/2025 9:14 AM [facility] BUN 7 5 - 25 mg/dL LAB CHEMISTRY METHOD 02/04/2025 9:14 AM [facility] Creatinine 0.70 0.70 - 1.30 mg/dL LAB CHEMISTRY METHOD 02/04/2025 9:14 AM [facility] eGFR 117 >=60 mL/min/1. 73m2 LAB CHEMISTRY METHOD 02/04/2025 9:14 AM [facility] Comment:Calculation based on the??Chronic Kidney Disease Epidemiology Collaboration (CKD-EPI) equation refit??without adjustment for race. BUN/Creatinine Ratio 10.0 LAB CHEMISTRY METHOD 02/04/2025 9:14 AM [facility] Calcium 9.1 8.5 - 10.5 mg/dL LAB CHEMISTRY METHOD 02/04/2025 9:14 AM [facility] Blood Venous blood specimen / Unknown Venipuncture / Unknown 02/04/2025 8:08 AM EDT 02/04/2025 8:41 AM EDT Sarah Beth VELAZQUEZ LAB BLOOD ORDERABLES Final Result [facility] [address] [place] [address], [place] [phone] * [place] Extremity Nonvascular Limited Left (02/03/2025 [...] by: Kristen Liu MD on 02/03/2025 20:26:17 Rosa Maria VELAZQUEZ IMG US PROCEDURES Final Result * Culture blood (02/03/2025 12:35 AM EDT) Only the most recent of3 resultswithin the time period is included. Culture, Blood No growth at 5 days 02/08/2025 4:01 AM EDT [facility] Blood Venous blood specimen / Unknown Venipuncture / Unknown 02/03/2025 12:35 AM EDT 02/03/2025 12:50 AM EDT Rosa Maria [facility] - [facility]AL [place] Final Result [facility] ([facility]) [facility] [address] [place] [address], * XR Foot 3+ Views bilat (02/01/2025 [...] Signed Date: 02/01/2025 12:30 ET Workstation ID: [id number] Transcribed By: Self Edit Transcribed Date: 02/01/2025 [...] foreignbody. -------- FINAL REPORT -------- Dictated By: Sharif Kruger Dictated Date: 02/01/2025 12:28 ET Assigned Physician: Sharif Kruger Reviewed and Electronically Signed By: Sharif Kruger Signed Date: 02/01/2025 12:30 ET Workstation ID: [id number] Transcribed By: Self Edit Transcribed Date: 02/01/2025 [...] Signed Date: 02/01/2025 12:19 ET Workstation ID: [id number] Transcribed By: Self Edit Transcribed Date: 02/01/2025 [...] Signed Date: 02/01/2025 12:19 ET Workstation ID: [id number] Transcribed By: Self Edit Transcribed Date: 02/01/2025 12:18 ET us Tremaine Herrera DO CV VASCULAR PROCEDURES Final R esult * Lactate, with reflex (02/01/2025 9:59 AM EDT) LACTIC ACID 1.5 0.4 - 2.0 mmol/L LAB CHEMISTRY METHOD 02/01/2025 11:05 AM EDT [facility] Blood Venous blood specimen / Unknown Venipuncture / Unknown 02/01/2025 9:59 AM EDT 02/01/2025 10:38 AM EDT Tremaine Herrera DO LAB BLOOD ORDERABLES Final Res ult [facility] [address] [place] [address], [place] [phone] * (ABNORMAL) Sedimentation rate, automated (02/01/2025 9:59 AM EDT) Sed Rate 37(H) 0 - 15 mm/hr LAB HEMETOLOGY METHOD 02/01/2025 10:49 AM EDT [facility] Blood Venous blood specimen / Unknown Venipuncture / Unknown 02/01/2025 9:59 AM EDT 02/01/2025 10:37 AM EDT Drake Corey MD LAB BLOOD ORDERABLES Final Result Performing Organization Address City/[facility]/ZIP Co de Phone Number [facility] [address] [place] [address], [place] [phone] * (ABNORMAL) C-reactive protein (02/01/2025 9:59 AM EDT) C-Reactive Protein 2.23(H) <=0.50 mg/dL LAB CHEMISTRY METHOD 02/01/2025 11:06 AM EDT [facility] Blood Venous blood specimen / Unknown Venipuncture / Unknown 02/01/2025 9:59 AM EDT 02/01/2025 10:37 AM EDT Drake Corey MD LAB BLOOD ORDERABLES Final Result Performing Organization Address City/[facility] Co de Phone Number [facility] [address] [place] [address], [place] [phone] from Last 3 Months Insurance MEDICARE MEDICAID - [place] Advance Directives Documents on File Type Date Recorded Patient Director Software Quality Assurance Expl thao Health Care Decision (hx) 09/03/2024 AD SANTOYO [...] currently active code status orders. Care Teams District Sales Manager Relationship Specialty Start Date End Date Jas Babb MD [address] [place] [address] [address] [place], [place] PCP - General Internal Medicine 06/10/16
--- OUTSIDE RECORDS SUMMARY | 2025-03-06 16:02 | XMS_ITS | Encounter Summary ---
Author Organization [facility] Address [address] [place] [address] Care Team Providers Care Digital Director Name Role Phone Jas Babb MD Primary Care Provider +1- [phone] Reason for Visit * Reason Onset Date Comments PROVIDER CALL BACK 03/06/2025 Encounter Details Date Type Department Care Team ([facility] st Contact Info) Description 03/06/2025 Telephone Gastroenterology - [place] 175 [facility] 175 [facility] [address] [place] [phone] Faith Hernandez NP 175 [facility] [address] [place] [address] PROVIDER CALL BACK Social History Tobacco Use Types Packs/Day Years [...] documented in this encounter Progress Notes * Rachell Hensley MA - 03/06/2025 12:07 PM EDT Spoke with patient placed on wait list. * Vianey Rodriguez - 03/06/2025 10:51 AM EDT Patient calling, was seen in [facility] ED yesterday, having a lot of issues/pain with eating and swallowing. Has f/u appt already scheduled next month but would like call back. documented in this encounter Plan of Treatment Upcoming Encounters Date Type Department Care Team (Late st Contact Info) Description 03/13/2025 10:00 AM EDT Office Visit Orthopedic Surgery - [place] [address] [facility] [address] [place] [phone] Jonathon Davidson, MARQUITA 175 [facility] [address] [place] [address] 03/25/2025 2:20 PM EDT Office Visit Gastroenterology - [place] 175 [facility] 175 [facility] [address] [place] [phone] Faith Hernandez, AZAEL 175 [facility] [address] [place] [address] documented as of this encounter Visit Diagnoses Not on filedocumented in this encounter Care Teams Digital Director Relationship Specialty Start Date End Date Jas Babb MD [address] [facility] [address] [place], [place] PCP - General Internal Medicine 06/10/16 documented as of this encounter
--- OUTSIDE RECORDS SUMMARY | 2025-03-06 16:02 | XMS_ITS | Encounter Summary ---
Author Organization [facility] Address [address] [place] [address] Care Team Providers Care Rn Internal Medicine Name Role Phone Jas Babb MD Primary Care Provider +1- [phone] Reason for Visit * Reason Comments Post-op Cellulitis of left f ootControlled type 2 diabetes with neuropathy (CMS/HCC)Midfoot ulceration, left, with necrosis of muscle (CMS/HCC)Abscess of fifth toe of left foot Encounter Details Date Type Department Care Team (Late st Contact Info) Description 03/06/2025 8:30 AM EDT Office Visit Orthopedic Surgery - [place] [address] [phone] Jonathon Davidson, MARQUITA [address] [address] Social History Tobacco Use Types Packs/Day Years [...] PM EST documented as of this encounter Last Filed Vital Signs Vital Sign Reading Time Taken Comments Blood Pressure - - Pulse - - Temperature - - Respiratory Rate - - Oxygen Saturation - - Inhaled Oxygen Concentration - - Weight 120 kg (265 lb) 03/06/2025 8:36 AM EDT Height 182.9 cm (6' 0.01 ) 03/06/2025 8:36 AM ED T Body Mass Index 35.93 03/06/2025 8:36 AM EDT documented in this encounter Functional Status * Are you deaf or do you have serious difficulty hearing? Answer Date of Assessment Author No 10/10/2024 11:52 PM Afsaneh Freire RN * Are you blind or do you [...] Afsaneh Freire RN documented in this encounter Ordered Prescriptions Prescription Sig Dispense Quantity Refills Last Filled Start Date End Date mupirocin (BACTROBAN) 2 % ointment Apply topically 1 (one) time each day for 10 days. 22 g 2 03/06/2025 documented in this encounter Plan of Treatment Upcoming Encounters Date Type Department Care Team (Late st Contact Info) Description 03/13/2025 10:00 AM EDT Office Visit Orthopedic Surgery - [place] [address] [phone] Jonathon Davidson, MARQUITA [address] [address] 03/25/2025 2:20 PM EDT Office Visit Gastroenterology - [place] 175 [facility] 175 [facility] [address] [place] [phone] Faith Hernandez, AZAEL 175 [facility] [address] [place] [address] documented as of this encounter Visit Diagnoses Not on filedocumented in this encounter Care Teams Rn Internal Medicine Relationship Specialty Start Date End Date Jas Babb MD 75 [facility] [address] [place], [place] PCP - General Internal Medicine 06/10/16 documented as of this encounter
--- OUTSIDE RECORDS SUMMARY | 2025-03-06 16:02 | XMS_ITS | Encounter Summary ---
Author Organization [facility] Address [address] [place] [address] Care Team Providers Care Net Software Engineer Name Role Phone Jas Babb MD Primary Care Provider [phone]- [phone] Reason for Referral * Imaging (Routine) - Authorized Specialty Diagnoses / Procedures Referred By Contac t Referred To Contact Cardiology Procedures Stress echocardiogram (TTE) dobutamine with contrast, bubble, strain, and 3D PRN order panel CA ECHOCARDIOGRAPHY TRANSTHORACIC 2D REST & STRESS W INTERPRETATION/REPORT CA ECHOCARDIOGRAPHY TRANSTHORACIC 2D REST & STRESS W/M-MODE CA DOPPLER ECHO COMPLETE CA ECHOCARDIOGRAPHY DOPPLER COLOR FLOW MAPPING CA CV TMST/BIKE MAX/SUBMAX CONTINUOUS ECG MON/PHARM STRESS SUPVSR ONLY CA TEST STRESS CARDIOVASCULAR TRACING ONLY CA CV STRESS TEST/BIKE CONT ECG MON/PHARM STRESS INTERP & REPORT ONLY Drake Corey MD [address] [place] [address] Phone: tel: fax: [facility] Referral ID Status Reason Start Date Expiration Date V isits Requested Visits Authorized [id number] Authorized 03/05/2025 03/05/2026 1 1 Reason for Visit * Reason Comments Chest Pain Encounter Details Date Type Department Care Team (Late st Contact Info) Description 03/05/2025 1:52 PM EDT - 03/05/2025 6:[address] [facility] [address] [place] [phone] Drake Corey MD [address] [place] [id number] Acute chest pain (Primary Dx) Discharge Disposition: Home or Self Care Social History Tobacco Use Types Packs/Day Years [...] - - Weight 120 kg (265 lb) 03/05/2025 1:33 PM EDT Height 182.9 cm (6') 03/05/2025 1:33 PM EDT Body Mass Index 35.94 03/05/2025 1:33 PM EDT documented in this encounter Functional Status [...] Afsaneh Freire RN documented in this encounter Discharge Instructions * Attachments The following attachments cannot be sent through Care Everywhere. * Chest Pain (Citizen Of [place]) documented in this encounter Medications at Time of Discharge amLODIPine (NORVASC) 5 mg tablet Take 2 tablets (10 mg total) by mouth 1 (one) time each day. 60 each 02/04/2025 ARIPiprazole (ABILIFY) 5 mg tablet Take 1 tablet (5 mg total) by mouth at bedtime. 01/15/2025 insulin glargine (LANTUS) 100 unit/mL injection Inject 45 Units under the skin at bedtime. insulin lispro 100 unit/mL injection Inject under the skin 3 (three) times a day before meals. -Administer within 15 minutes of a meal metoprolol succinate (TOPROL-XL) 25 mg 24 hr tablet Take 1 tablet (25 mg total) by mouth 1 (one) time each day. Do not crush or chew. 30 each 02/04/2025 nicotine polacrilex (NICORETTE) [address] 1 each (4 mg total) into mouth between cheek and gum every 2 (two) hours if needed for smoking cessation. 01/31/2025 pantoprazole (PROTONIX) 40 mg EC tablet Take 1 tablet (40 mg total) by mouth 1 (one) time each day. Do not crush, chew, or split. 30 each 03/05/2025 04/04/2025 sucralfate (CARAFATE) 1 gram tablet Take 1 tablet (1 g total) by mouth 4 (four) times a day (before meals and nightly). Take 1 hour before meals and at bedtime 360 each 01/21/2025 04/21/2025 tiZANidine (ZANAFLEX) 2 mg tablet Take 1 tablet (2 mg total) by mouth 2 (two) times a day if needed for muscle spasms. 01/30/2025 documented as of this encounter Ordered Prescriptions Prescription Sig Dispense Quantity Refills Last Filled Start Date End Date pantoprazole (PROTONIX) 40 mg EC tablet Take 1 tablet (40 mg total) by mouth 1 (one) time each day. Do not crush, chew, or split. 30 each 03/05/2025 04/04/2025 documented in this encounter Discharge Disposition Disposition Code Departure Means Destination Comment s Home or Self Skilled Nursing documented in this encounter Progress Notes * Danna Hawkins RN - 03/05/2025 4:02 PM EDT Dressings to Left foot and 2nd toe changed with xeroform and Non-stick with band aid and Tegaderm. * Nkechi Frost RN - 03/05/2025 1:32 PM EDT Pt to ed reports pain started a few days ago to midsternal area. Pt reports pain worse when swallowing. Denies any vomiting. Pt reports pain worse with deep breath. documented in this encounter Miscellaneous Notes * ED Bed Hold Note - Makenzie Callahan RN - 03/05/2025 1:52 PM EDT Bed: [id number] Expected date: Expected time: Means of arrival: Comments: hold documented in this encounter Plan of Treatment Upcoming Encounters Date Type Department Care Team (Late st Contact Info) Description 03/13/2025 10:00 AM EDT Office Visit Orthopedic Surgery - [place] [address] [address] Jonathon Davidson, MARQUITA [address] [address] 03/25/2025 2:20 PM EDT Office Visit Gastroenterology - [place] [address] 175 [facility] [address] [place] [phone] Faith Hernandez, AZAEL 175 [facility] [address] [place] [address] Scheduled Orders Name Type Priority Associated Diagnoses Order Schedule Stress echocardiogram (TTE) dobutamine with contrast, bubble, strain, and 3D PRN order panel Stress Echocardiography Routine Expected : 03/12/2025, Expires: 03/05/2026 documented as of this encounter Procedures Procedure Name Priority Date/Time Associated Diagnosis Comments ECG ANNOTATED 03/06/2025 TROPONIN I HIGH SENSITIVITY STAT 03/05/2025 3:49 PM EDT D-DIMER STAT 03/05/2025 3:49 PM EDT XR CHEST 2 VIEWS STAT 03/05/2025 3:13 PM EDT TROPONIN I HIGH SENSITIVITY STAT 03/05/2025 2:15 PM EDT CBC WITH AUTO DIFFERENTIAL STAT 03/05/2025 2:15 PM EDT CBC AND DIFFERENTIAL STAT 03/05/2025 2:15 PM EDT B-TYPE NATRIURETIC PEPTIDE STAT 03/05/2025 2:15 PM EDT MAGNESIUM STAT 03/05/2025 2:15 PM EDT LIPASE STAT 03/05/2025 2:15 PM EDT COMPREHENSIVE METABOLIC PANEL STAT 03/05/2025 2:15 PM EDT ECG 12-LEAD STAT 03/05/2025 1:31 PM EDT documented in this encounter Results * ECG-Annotated (03/06/2025) Provider Onbase MD ECG ORDERABLES Final Result * D-dimer, quantitative (03/05/2025 3:49 PM EDT) [facility] D-Dimer, Quant (D-DU) <150 <=230 ng/mL DDU LAB COAGULATION METHOD 03/05/2025 4:12 PM EDT [facility] Blood Venous blood specimen / Unknown Venipuncture / Unknown 03/05/2025 3:49 PM EDT 03/05/2025 3:56 PM EDT [facility] - 03/05/2025 4:12 PM EDT D-Dimer <230 ng/mL (D-Dimer units) is the threshold for exclusion of DVT/PE. D-Dimer may be elevated in: Critically ill, severely infected, trauma patients, DIC, acute CVA, acute SC, unstable angina, AF, old age, , and smoking. D-Dimer may be decreased with: Initiation of heparin therapy and oral anticoagulants. Drake Corey MD LAB BLOOD ORDERABLES Final Result [facility] [address] [place] [address], * Troponin I high sensitivity (03/05/2025 3:49 PM EDT) [facility] High Sensitivity Troponin I 7 <=79 ng/L LAB CHEMISTRY METHOD 03/05/2025 4:37 PM EDT [facility] Blood Venous blood specimen / Unknown Venipuncture / Unknown 03/05/2025 3:49 PM EDT 03/05/2025 3:56 PM EDT [facility] - 03/05/2025 4:37 PM EDT High levels of biotin in samples may falsely decrease hsTroponin values. ??Use caution when interpreting hsTroponin results in patients taking biotin who exhibit renal impairment (eGFR <60) or in patients taking more than 20 mg/day of biotin. Drake Corey MD LAB BLOOD ORDERABLES Final Result [facility] [address] [place] [address], [place] [phone] * XR Chest 2 Views (03/05/2025 3:13 [...] Signed Date: 03/05/2025 16:22 ET Workstation ID: [id number] Transcribed By: Self Edit Transcribed Date: 03/05/2025 [...] Signed Date: 03/05/2025 16:22 ET Workstation ID: [id number] Transcribed By: Self Edit Transcribed Date: 03/05/2025 16:22 ET Drake Corey MD IMG XR PROCEDURES Final Res ult * (ABNORMAL) CBC auto differential (03/05/2025 2:15 PM EDT) [facility] Signature WBC 10.3 4.8 - 10.8 K/mcL LAB HEMETOLOGY METHOD 03/05/2025 2:34 PM EDT [facility] RBC 5.50 4.50 - 5.50 M/mcL LAB HEMETOLOGY METHOD 03/05/2025 2:34 PM EDT [facility] Hemoglobin 15.3 13.5 - 17.5 g/dL LAB HEMETOLOGY METHOD 03/05/2025 2:34 PM EDT [facility] Hematocrit 44.5 42.0 - 54.0 % LAB HEMETOLOGY METHOD 03/05/2025 2:34 PM EDT [facility] MCV 81.1 79.0 - 98.0 FL LAB HEMETOLOGY METHOD 03/05/2025 2:[facility] MCH 27.9 27.0 - 32.0 pcg LAB HEMETOLOGY METHOD 03/05/2025 2:34 PM EDT [facility] MCHC 34.4 32.0 - 37.0 g/dL LAB HEMETOLOGY METHOD 03/05/2025 2:34 PM EDT [facility] RDW 13.2 11.0 - 15.0 % LAB HEMETOLOGY METHOD 03/05/2025 2:34 PM EDT [facility] Platelets 354 130 - 400 K/mcL LAB HEMETOLOGY METHOD 03/05/2025 2:34 PM EDT [facility] MPV 9.3 7.0 - 11.0 FL LAB HEMETOLOGY METHOD 03/05/2025 2:34 PM EDT [facility] NRBC 0.0 <1.0 % LAB HEMETOLOGY METHOD 03/05/2025 2:34 PM EDT [facility] NRBC Absolute 0.00 <0.10 K/mcL LAB HEMETOLOGY METHOD 03/05/2025 2:34 PM [facility] Neutrophils Relative 69.1 % LAB HEMETOLOGY METHOD 03/05/2025 2:34 PM [facility] Lymphocytes Relative 24.2 % LAB HEMETOLOGY METHOD 03/05/2025 2:34 PM [facility] Monocytes Relative 4.2 % LAB HEMETOLOGY METHOD 03/05/2025 2:34 PM [facility] Eosinophils Relative 1.5 % LAB HEMETOLOGY METHOD 03/05/2025 2:34 PM [facility] Basophils Relative 0.5 % LAB HEMETOLOGY METHOD 03/05/2025 2:34 PM [facility] Immature Granulocytes Relative 0.5 % LAB HEMETOLOGY METHOD 03/05/2025 2:34 PM [facility] Neutrophils Absolute 7.11(H) 1.50 - 7.00 K/mcL LAB HEMETOLOGY METHOD 03/05/2025 2:34 PM [facility] Lymphocytes Absolute 2.49 1.00 - 5.00 K/mcL LAB HEMETOLOGY METHOD 03/05/2025 2:34 PM [facility] Monocytes Absolute 0.43 0.20 - 1.00 K/mcL LAB HEMETOLOGY METHOD 03/05/2025 2:34 PM [facility] Eosinophils Absolute 0.15 0.00 - 0.50 K/mcL LAB HEMETOLOGY METHOD 03/05/2025 2:34 PM [facility] Basophils Absolute 0.05 0.00 - 0.20 K/mcL LAB HEMETOLOGY METHOD 03/05/2025 2:34 PM [facility] Immature Granulocytes Absolute 0.05(H) 0.00 - 0.03 K/mcL LAB HEMETOLOGY METHOD 03/05/2025 2:34 PM [facility] Blood Venous blood specimen / Unknown Venipuncture / Unknown 03/05/2025 2:15 PM EDT 03/05/2025 2:28 PM EDT us Drake Corey MD LAB BLOOD ORDERABLES Final Result Performing Organization Address [facility]/ZIP Co de Phone Number [facility] [address] [place] [address], [place] [phone] * B-type natriuretic peptide (03/05/2025 2:15 PM EDT) BNP 11 <=100 pcg/mL LAB CHEMISTRY METHOD 03/05/2025 3:01 PM EDT [facility] Blood Venous blood specimen / Unknown Venipuncture / Unknown 03/05/2025 2:15 PM EDT 03/05/2025 2:28 PM EDT us Drake Corey MD LAB BLOOD ORDERABLES Final Result Performing Organization Address [facility]/ZIP Co de Phone Number [facility] [address] [place] [address], [place] [phone] * Magnesium (03/05/2025 2:15 PM EDT) Magnesium 2.0 1.9 - 2.6 mg/dL LAB CHEMISTRY METHOD 03/05/2025 3:01 PM EDT [facility] Blood Venous blood specimen / Unknown Venipuncture / Unknown 03/05/2025 2:15 PM EDT 03/05/2025 2:28 PM EDT us Drake Corey MD LAB BLOOD ORDERABLES Final Result Performing Organization Address City/[facility]/ZIP Co de Phone Number [facility] [address] [place] [address], [place] [phone] * Lipase (03/05/2025 2:15 PM EDT) Pathologist [facility] Lipase 39 13 - 75 unit/L LAB CHEMISTRY METHOD 03/05/2025 3:01 PM EDT [facility] Blood Venous blood specimen / Unknown Venipuncture / Unknown 03/05/2025 2:15 PM EDT 03/05/2025 2:28 PM EDT Drake Corey MD LAB BLOOD ORDERABLES Final Result [facility] [address] [place] [address], [place] [phone] * (ABNORMAL) Comprehensive metabolic panel (03/05/2025 2:15 PM EDT) [facility] Sodium 134 133 - 145 mmol/L LAB CHEMISTRY METHOD 03/05/2025 3:30 PM [facility] Potassium 4.0 3.5 - 5.5 mmol/L LAB CHEMISTRY METHOD 03/05/2025 3:30 PM [facility] Chloride 99 96 - 110 mmol/L LAB CHEMISTRY METHOD 03/05/2025 3:30 PM [facility] CO2 29 21 - 32 mmol/L LAB CHEMISTRY METHOD 03/05/2025 3:30 PM [facility] Anion Gap 6 3 - 11 LAB CHEMISTRY METHOD 03/05/2025 3:30 PM [facility] Glucose 187(H) 70 - 100 mg/dL LAB CHEMISTRY METHOD 03/05/2025 3:30 PM [facility] BUN 11 5 - 25 mg/dL LAB CHEMISTRY METHOD 03/05/2025 3:30 PM [facility] Creatinine 0.82 0.70 - 1.30 mg/dL LAB CHEMISTRY METHOD 03/05/2025 3:30 PM [facility] eGFR 112 >=60 mL/min/1. 73m2 LAB CHEMISTRY METHOD 03/05/2025 3:30 PM EDT [facility] Comment:Calculation based on the??Chronic Kidney Disease Epidemiology Collaboration (CKD-EPI) equation refit??without adjustment for race. BUN/Creatinine Ratio 13.4 LAB CHEMISTRY METHOD 03/05/2025 3:30 PM EDT [facility] Calcium 9.6 8.5 - 10.5 mg/dL LAB CHEMISTRY METHOD 03/05/2025 3:30 PM EDT [facility] AST (SGOT) 15 10 - 42 unit/L LAB CHEMISTRY METHOD 03/05/2025 3:30 PM EDT [facility] ALT (SGPT) 28 10 - 60 unit/L LAB CHEMISTRY METHOD 03/05/2025 3:30 PM EDT [facility] Alkaline Phosphatase 100 42 - 121 unit/L LAB CHEMISTRY METHOD 03/05/2025 3:30 PM EDT [facility] Total Protein 7.7 6.0 - 8.0 g/dL LAB CHEMISTRY METHOD 03/05/2025 3:30 PM EDT [facility] Albumin 4.2 3.2 - 5.0 g/dL LAB CHEMISTRY METHOD 03/05/2025 3:30 PM EDT [facility] Total Bilirubin 0.6 0.0 - 1.4 mg/dL LAB CHEMISTRY METHOD 03/05/2025 3:30 PM EDT [facility] Blood Venous blood specimen / Unknown Venipuncture / Unknown 03/05/2025 2:15 PM EDT 03/05/2025 2:28 PM EDT us Drake Corey MD LAB BLOOD ORDERABLES Final Result [facility] [address] [place] [address], * Troponin I high sensitivity (03/05/2025 2:15 PM EDT) High Sensitivity Troponin I 7 <=79 ng/L LAB CHEMISTRY METHOD 03/05/2025 3:04 PM EDT [facility] Blood Venous blood specimen / Unknown Venipuncture / Unknown 03/05/2025 2:15 PM EDT 03/05/2025 2:28 PM EDT Narrative [facility] - 03/05/2025 3:04 PM EDT High levels of biotin in samples may falsely decrease hsTroponin values. ??Use caution when interpreting hsTroponin results in patients taking biotin who exhibit renal impairment (eGFR <60) or in patients taking more than 20 mg/day of biotin. Drake Corey MD LAB BLOOD ORDERABLES Final Result Performing Organization Address [facility] Co de Phone Number [facility] [address] [place] [address], [place] [phone] * ECG 12 lead (03/05/2025 1:31 PM EDT) [facility] Ventricular Rate ECG 72 BPM GEMUSE Atrial Rate 72 BPM GEMUSE P-R Interval 150 ms GEMUSE QRS Duration 102 ms GEMUSE Q-T Interval 388 ms GEMUSE QTc 424 ms GEMUSE P Wave [place] 61 degrees GEMUSE R [place] -2 degrees GEMUSE T [place] 40 degrees GEMUSE ECG Interpretation Normal sinus rhythm Incomplete right bundle branch block Borderline ECG When compared with ECG of 11-OCT-2024 00:14, No significant change was found Confirmed by Manda SILVA JOHN ([id number]) on 03/05/2025 5:42:01 PM GEMUSE 03/05/2025 1:31 PM EDT 03/05/2025 5:42 PM EDT us Drake Corey MD ECG ORDERABLES Final Resul t Performing Organization Address City/[facility] Co de Phone Number GEMUSE documented in this encounter Visit Diagnoses Diagnosis Acute chest pain- Primary Unspecified chest pain documented in this encounter Administered Medications Inactive Administered Medications - up to 3 most recent administrations Medication Order TIAGO Action Action Date Dose Rate Site morphine injection 4 mg 4 mg, intravenous, Once, On Mon03/05/25 at 1431, For 1 dose Given 03/05/2025 2:47 PM EDT 4 mg pantoprazole (PROTONIX) injection 40 mg 40 mg, intravenous, Administer over 2 Minutes, Once, On Mon03/05/25 at 1431, For 1 dose, Pantroprazole - IV push: Reconstitute powder for injection with 10 mL NS; final concentration: 4 mg/mL., Indication for IV Push 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 Discontinued by another clinician 01/10/2025 03/05/2025 documented as of this encounter Active and Recently Administered Medications Times are shown in EDT. 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
== END 2025-03-06 13:51 | disposition home or self-care (01) ==
PROVIDERS: PCP Physician Assistant Medical; Visit Provider Surgery
DX: L98.0 Pyogenic granuloma (principal)
CPT/HCPCS: 11423

== ENCOUNTER 2025-03-06 13:07 | Outpatient (REF) | payer MEDICARE, MEDICAID, SELFPAY ==
--- OUTSIDE RECORDS SUMMARY | 2025-03-06 16:56 | XMS_ITS | Encounter Summary ---
Author Organization [facility] Address [address] [place] [address] Care Team Providers Care Control Operator Name Role Phone Jas Babb MD Primary Care Provider [phone]- [phone] Reason for Visit * Reason Onset Date Comments PROVIDER CALL BACK 03/06/2025 Encounter Details Date Type Department Care Team ([facility] st Contact Info) Description 03/06/2025 Telephone Gastroenterology - [place] 175 [facility] 175 [facility] [address] [place] [phone] Faith Hernandez NP 175 [facility] [address] [place] [address] PROVIDER CALL BACK Social History Tobacco Use [...] AM EDT Patient calling, was seen in [facility] ED yesterday, having a lot of issues/pain with eating and swallowing. Has f/u appt already scheduled next month but would like call back. documented in this encounter Plan of Treatment Upcoming Encounters Date Type Department Care Team (Late st Contact Info) Description 03/13/2025 10:00 AM EDT Office Visit Orthopedic Surgery - [place] [address] 175 [facility] [address] [place] [phone] Jonathon Davidson, MARQUITA 175 [facility] [address] [place] [address] 03/25/2025 2:20 PM EDT Office Visit Gastroenterology - [place] 175 [facility] 175 [facility] [address] [place] [address] Faith Hernandez, AZAEL 175 [facility] [address] [place] [address] documented as of this encounter Visit Diagnoses Not on filedocumented in this encounter Care Teams Control Operator Relationship Specialty Start Date End Date Jas Babb MD 75 [facility] [address] [place], [place] PCP - General Internal Medicine 06/10/16 documented as of this encounter
--- OUTSIDE RECORDS SUMMARY | 2025-03-06 16:56 | XMS_ITS | Clinical Summary ---
Author Organization 175 [facility] Address [address] [place] [address] Phone Care Team Providers Care Sales Representative Consultant Name Role Phone Jas Babb MD Primary Care Provider [phone]- [phone] Allergies Active Allergy Reactions Criticality Noted Date [...] left 02/02/2025 Anxiety state 09/25/2024 Bipolar disorder ([facility] V24, [facility] V28) 04/2024 Chronic back pain 09/25/2024 Depressive disorder 09/25/2024 Esophageal reflux 09/25/2024 Essential hypertension 09/25/2024 Hypothyroid 09/25/2024 Obstructive sleep apnea 09/25/2024 Peripheral neuropathy 09/25/2024 Morbid obesity with BMI of 4 0.0-44.9, adult ([facility] V24, [facility] V28) 09/25/2024 Asthma 04/29/2019 Diabetes mellitus type 2 wit h neurological manifestations ([place] [id number], [place] [id number]) 12/20/2017 Encounters Date Type Department Care Team Description 03/06/2025 8:30 AM EDT Office Visit Orthopedic Surgery [place] [phone] [phone] Jonathon Davidson DPM 03/06/2025 Telephone Gastroenterology [facility] 175 [facility] 175 [facility] [address] [place] [phone] Faith Hernandez NP PROVIDER CALL BACK 03/05/2025 1:52 PM EDT - 03/05/2025 6:24 PM EDT Emergency [facility] Emergency [address] [place] [phone] Drake Corey MD Acute chest pain (Primary Dx) Discharge Disposition: Home or Self Care 02/27/2025 1:15 PM EDT Office Visit Orthopedic Surgery [facility] [address] [phone] Jonathon Davidson DPM Poorly controlled type 2 diabetes mellitus with neuropathy ([facility] V24, [facility] V28) (Primary Dx); Cellulitis of left foot; 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, left, with fat layer exposed (CMS/HCC V24, CMS/HCC V28); Chronic ulcer of right great toe, with fat layer exposed (CMS/HCC V24, CMS/HCC V28) 02/20/2025 1:30 PM EDT Office Visit Orthopedic Surgery [facility] [address] [phone] Jonathon Davidson DPM Poorly controlled type 2 diabetes mellitus with neuropathy (CMS/HCC V24, CMS/HCC V28) (Primary Dx); Cellulitis of left foot; 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, left, with fat layer exposed (CMS/HCC V24, CMS/HCC V28); Chronic ulcer of right great toe, with fat layer exposed (CMS/HCC V24, CMS/HCC V28) 02/13/2025 Telephone Orthopedic Surgery [facility] [address] [phone] Jonathon Davidson DPM Scooter 02/12/2025 1:00 PM EDT Office Visit Orthopedic [facility] [address] [phone] Jonathon Davidson DPM Poorly controlled type 2 diabetes mellitus with neuropathy (CMS/HCC V24, CMS/HCC V28) (Primary Dx); Cellulitis of left foot; 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, left, with fat layer exposed (CMS/[facility] V24, CMS/HCC V28) 02/02/2025 8:14 PM EDT - 02/04/2025 12:09 PM EDT Hospital Encounter [facility] Surgical Unit [address] [place] [phone] Coby Brasher DO Ishtiaq, Rizwan, MD Kela, Kashyap Devendrabhai, MD Cellulitis of foot, left (Primary Dx); Cellulitis of foot, right Discharge Disposition: Home or Self Care 02/01/2025 9:07 AM EDT - 02/01/2025 2:35 PM EDT Emergency [facility] Emergency [address] [place] [address] Tremaine Herrera DO Leg pain, diffuse, left (Primary Dx); Bilateral cellulitis of lower leg Discharge Disposition: Left Against Medical Advice 01/21/2025 1:20 PM EST Office Visit Gastroenterology [facility] 175 [facility] 175 [facility] [address] [place] [phone] Faith Hernandez NP Chronic gastric ulcer without hemorrhage and without perforation (Primary Dx); Hiatal hernia with GERD; Colonoscopy refused 01/10/2025 Telephone Gastroenterology [facility] 175 [facility] 175 [facility] [address] [place] [phone] Faith Hernandez NP Forms/questionnaire s 12/23/2024 10:30 AM EST Office Visit Orthopedic Surgery [facility] 250 175 [facility] [address] [place] [address] Jonathon Davidson, MARQUITA Poorly controlled type 2 diabetes mellitus with neuropathy ([facility] V24, [facility] V28) (Primary Dx); Cellulitis of left foot; 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, left, with fat layer exposed ([facility] V24, [facility] V28); Non-pressure chronic ulcer of left ankle with fat layer exposed ([facility] V24, [facility] V28) from Last 3 Months Surgical History Surgery Date Site/Laterality Comments HERNIA REPAIR 04/2014 Right PROCEDURE: REPAIR INGUINAL HERNIA; COMMENT: incarcerated ESOPHAGOGASTRODUODENOSCOPY TOE AMPUTATION Left great toe partial amputation Medical History Medical History Date Comments Anxiety state DX:Anxiety state Asthma 04/29/2019 DX:Asthma Bipolar disorder ([facility] V2 4, [facility] V28) DX:Bipolar disorder (HCC) Chronic back pain DX:Chronic frederick k pain Depressive disorder DX:Depressiv e disorder Diabetes mellitus type 2 wit h neurological manifestations ([facility] V24, [facility] V28) 12/20/2017 DX:Diabetes mellitus type 2 with neurological manifestations ([facility]) Esophageal reflux DX:Esophageal reflux Essential hypertension DX:Essent ial hypertension Morbid obesity with BMI of 4 0.0-44.9, adult ([facility] V24, [facility] V28) DX:Morbid obesity wit h BMI [...] AM EDT Office Visit Orthopedic Surgery [place] [address] [phone] Jonathon Davidson, MARQUITA 175 [facility] [address] [place] [address] 03/25/2025 2:20 PM EDT Office Visit Gastroenterology - [place] [address] [place] 175 [facility] [address] [place] [phone] Faith Hernandez, AZAEL 175 [facility] [address] [place] [address] Health Maintenance Due Date Last Done Comments [...] LAB CHEMISTRY METHOD 03/05/2025 4:37 PM EDT [facility] Blood Venous blood specimen / Unknown Venipuncture / Unknown 03/05/2025 3:49 PM EDT 03/05/2025 3:56 PM EDT Narrative [facility] - 03/05/2025 4:37 PM EDT High levels of biotin in samples may falsely decrease hsTroponin values. ??Use caution when interpreting hsTroponin results in patients taking biotin who exhibit renal impairment (eGFR <60) or in patients taking more than 20 mg/day of biotin. us Drake Corey MD LAB BLOOD ORDERABLES Final Result Performing Organization Address [facility] de Phone Number [facility] [address] [place] [address], [place] [phone] * D-dimer, quantitative (03/05/2025 3:49 PM EDT) D-Dimer, Quant (D-DU) <150 <=230 ng/mL DDU LAB COAGULATION METHOD 03/05/2025 4:12 PM EDT [facility] Blood Venous blood specimen / Unknown Venipuncture / Unknown 03/05/2025 3:49 PM EDT 03/05/2025 3:56 PM EDT Narrative [facility] - 03/05/2025 4:12 PM EDT D-Dimer <230 ng/mL (D-Dimer units) is the threshold for exclusion of DVT/PE. D-Dimer may be elevated in: Critically ill, severely infected, trauma patients, DIC, acute CVA, acute CO, unstable angina, AF, old age, , and smoking. D-Dimer may be decreased with: Initiation of heparin therapy and oral anticoagulants. us Drake Corey MD LAB BLOOD ORDERABLES Final Result Performing Organization Address [facility] de Phone Number [facility] [address] [place] [address], [place] [phone] * XR Chest 2 Views (03/05/2025 3:13 [...] Signed Date: 03/05/2025 16:22 ET Workstation ID: [id number] Transcribed By: Self Edit Transcribed Date: 03/05/2025 [...] Signed Date: 03/05/2025 16:22 ET Workstation ID: [id number] Transcribed By: Self Edit Transcribed Date: 03/05/2025 16:22 ET Drake Corey MD IMG XR PROCEDURES Final Res ult * (ABNORMAL) CBC auto differential (03/05/2025 2:15 PM EDT) Only the most recent of5 resultswithin the time period is included. WBC 10.3 4.8 - 10.8 K/mcL LAB HEMETOLOGY METHOD 03/05/2025 2:34 PM EDT [facility] RBC 5.50 4.50 - 5.50 M/mcL LAB HEMETOLOGY METHOD 03/05/2025 2:34 PM EDT [facility] Hemoglobin 15.3 13.5 - 17.5 g/dL LAB HEMETOLOGY METHOD 03/05/2025 2:34 PM EDT [facility] Hematocrit 44.5 42.0 - 54.0 % LAB HEMETOLOGY METHOD 03/05/2025 2:34 PM EDT [facility] MCV 81.1 79.0 - 98.0 FL LAB HEMETOLOGY METHOD 03/05/2025 2:34 PM EDT [facility] MCH 27.9 27.0 - 32.0 pcg LAB HEMETOLOGY METHOD 03/05/2025 2:34 PM EDT [facility] MCHC 34.4 32.0 - 37.0 g/dL LAB HEMETOLOGY METHOD 03/05/2025 2:34 PM EDT [facility] RDW 13.2 11.0 - 15.0 % LAB HEMETOLOGY METHOD 03/05/2025 2:34 PM EDT [facility] Platelets 354 130 - 400 K/mcL LAB HEMETOLOGY METHOD 03/05/2025 2:34 PM EDT [facility] MPV 9.3 7.0 - 11.0 FL LAB HEMETOLOGY METHOD 03/05/2025 2:34 PM EDT [facility] NRBC 0.0 <1.0 % LAB HEMETOLOGY METHOD 03/05/2025 2:34 PM EDT [facility] NRBC Absolute 0.00 <0.10 K/mcL LAB HEMETOLOGY METHOD 03/05/2025 2:34 PM EDT [facility] Neutrophils Relative 69.1 % LAB HEMETOLOGY METHOD 03/05/2025 2:34 PM EDT [facility] Lymphocytes Relative 24.2 % LAB HEMETOLOGY METHOD 03/05/2025 2:34 PM EDT [facility] Monocytes Relative 4.2 % LAB HEMETOLOGY METHOD 03/05/2025 2:34 PM EDT [facility] Eosinophils Relative 1.5 % LAB HEMETOLOGY METHOD 03/05/2025 2:34 PM EDT [facility] Basophils Relative 0.5 % LAB HEMETOLOGY METHOD 03/05/2025 2:34 PM EDT [facility] Immature Granulocytes Relative 0.5 % LAB HEMETOLOGY METHOD 03/05/2025 2:34 PM EDT [facility] Neutrophils Absolute 7.11(H) 1.50 - 7.00 K/mcL LAB HEMETOLOGY METHOD 03/05/2025 2:34 PM EDT [facility] Lymphocytes Absolute 2.49 1.00 - 5.00 K/mcL LAB HEMETOLOGY METHOD 03/05/2025 2:34 PM EDT [facility] Monocytes Absolute 0.43 0.20 - 1.00 K/mcL LAB HEMETOLOGY METHOD 03/05/2025 2:34 PM EDT [facility] Eosinophils Absolute 0.15 0.00 - 0.50 K/mcL LAB HEMETOLOGY METHOD 03/05/2025 2:34 PM EDT [facility] Basophils Absolute 0.05 0.00 - 0.20 K/mcL LAB HEMETOLOGY METHOD 03/05/2025 2:34 PM EDT [facility] Immature Granulocytes Absolute 0.05(H) 0.00 - 0.03 K/mcL LAB HEMETOLOGY METHOD 03/05/2025 2:34 PM EDT [facility] Blood Venous blood specimen / Unknown Venipuncture / Unknown 03/05/2025 2:15 PM EDT 03/05/2025 2:28 PM EDT us Drake Corey MD LAB BLOOD ORDERABLES Final Result [facility] [address] [place] [address], * B-type natriuretic peptide (03/05/2025 2:15 PM EDT) BNP 11 <=100 pcg/mL LAB CHEMISTRY METHOD 03/05/2025 3:01 PM EDT [facility] Blood Venous blood specimen / Unknown Venipuncture / Unknown 03/05/2025 2:15 PM EDT 03/05/2025 2:28 PM EDT Drake Corey MD LAB BLOOD ORDERABLES Final Result Performing Organization Address [facility]/ZIP Co de Phone Number [facility] [address] [place] [address], [place] [phone] * Magnesium (03/05/2025 2:15 PM EDT) Only the most recent of2 resultswithin the time period is included. Magnesium 2.0 1.9 - 2.6 mg/dL LAB CHEMISTRY METHOD 03/05/2025 3:01 PM EDT [facility] Blood Venous blood specimen / Unknown Venipuncture / Unknown 03/05/2025 2:15 PM EDT 03/05/2025 2:28 PM EDT Drake Corey MD LAB BLOOD ORDERABLES Final Result Performing Organization Address [facility] Co de Phone Number [facility] [address] [place] [address], [place] [phone] * Lipase (03/05/2025 2:15 PM EDT) Lipase 39 13 - 75 unit/L LAB CHEMISTRY METHOD 03/05/2025 3:01 PM EDT [facility] Blood Venous blood specimen / Unknown Venipuncture / Unknown 03/05/2025 2:15 PM EDT 03/05/2025 2:28 PM EDT Drake Corey MD LAB BLOOD ORDERABLES Final Result Performing Organization Address City/[facility]/ZIP Co de Phone Number [facility] [address] [place] [address], [place] [phone] * (ABNORMAL) Comprehensive metabolic panel (03/05/2025 2:15 PM EDT) Only the most recent of3 resultswithin the time period is included. Sodium 134 133 - 145 mmol/L LAB CHEMISTRY METHOD 03/05/2025 3:30 PM [facility] Potassium 4.0 3.5 - 5.5 mmol/L LAB CHEMISTRY METHOD 03/05/2025 3:30 PM [facility] Chloride 99 96 - 110 mmol/L LAB CHEMISTRY METHOD 03/05/2025 3:30 PM [facility] CO2 29 21 - 32 mmol/L LAB CHEMISTRY METHOD 03/05/2025 3:30 PM [facility] Anion Gap 6 3 - 11 LAB CHEMISTRY METHOD 03/05/2025 3:30 PM [facility] Glucose 187(H) 70 - 100 mg/dL LAB CHEMISTRY METHOD 03/05/2025 3:30 PM [facility] BUN 11 5 - 25 mg/dL LAB CHEMISTRY METHOD 03/05/2025 3:30 PM [facility] Creatinine 0.82 0.70 - 1.30 mg/dL LAB CHEMISTRY METHOD 03/05/2025 3:30 PM [facility] eGFR 112 >=60 mL/min/1. 73m2 LAB CHEMISTRY METHOD 03/05/2025 3:30 PM [facility] Comment:Calculation based on the??Chronic Kidney Disease Epidemiology Collaboration (CKD-EPI) equation refit??without adjustment for race. BUN/Creatinine Ratio 13.4 LAB CHEMISTRY METHOD 03/05/2025 3:30 PM [facility] Calcium 9.6 8.5 - 10.5 mg/dL LAB CHEMISTRY METHOD 03/05/2025 3:30 PM [facility] AST (SGOT) 15 10 - 42 unit/L LAB CHEMISTRY METHOD 03/05/2025 3:30 PM EDT [facility] ALT (SGPT) 28 10 - 60 unit/L LAB CHEMISTRY METHOD 03/05/2025 3:30 PM EDT [facility] Alkaline Phosphatase 100 42 - 121 unit/L LAB CHEMISTRY METHOD 03/05/2025 3:30 PM EDT [facility] Total Protein 7.7 6.0 - 8.0 g/dL LAB CHEMISTRY METHOD 03/05/2025 3:30 PM EDT [facility] Albumin 4.2 3.2 - 5.0 g/dL LAB CHEMISTRY METHOD 03/05/2025 3:30 PM EDT [facility] Total Bilirubin 0.6 0.0 - 1.4 mg/dL LAB CHEMISTRY METHOD 03/05/2025 3:30 PM EDT [facility] Blood Venous blood specimen / Unknown Venipuncture / Unknown 03/05/2025 2:15 PM EDT 03/05/2025 2:28 PM EDT us Drake Corey MD LAB BLOOD ORDERABLES Final Result [facility] [address] [place] [address], * ECG 12 lead (03/05/2025 1:31 PM EDT) Ventricular Rate ECG 72 BPM GEMUSE Atrial Rate 72 BPM GEMUSE P-R Interval 150 ms GEMUSE QRS Duration 102 ms GEMUSE Q-T Interval 388 ms GEMUSE QTc 424 ms GEMUSE P Wave St[place] 61 degrees GEMUSE R [place] -2 degrees GEMUSE T St[place] 40 degrees GEMUSE ECG Interpretation Normal sinus rhythm Incomplete right bundle branch block Borderline ECG When compared with ECG of 11-OCT-2024 00:14, No significant change was found Confirmed by Manda SILVA JOHN ([id number]) on 03/05/2025 5:42:01 PM GEMUSE 03/05/2025 1:31 PM EDT 03/05/2025 5:42 PM EDT us Drake Corey MD ECG ORDERABLES Final Resul t Performing Organization Address [facility] Co de Phone Number [facility] * ECG-Outside (02/05/2025) us Provider Onbase ECG ORDERABLES Final Result * (ABNORMAL) POCT Glucose, blood (02/04/2025 11:16 AM EDT) Only the most recent of8 resultswithin the time period is included. [facility] Glucose POCT 334(H) 70 - 100 mg/dL 02/04/2025 11:17 AM EDT [facility] Blood Capillary blood specimen / Unknown 02/04/2025 11:16 AM EDT 02/04/2025 11:18 AM EDT Toro Alves MD LAB POINT O F CARE TEST DOCKED DEVICE UNSOLICITED RESULTS Final Result Performing Organization Address [facility] de Phone Number [facility] [address] [place] [address], [place] [phone] * (ABNORMAL) Vancomycin, trough Please draw up to one hour prior to 0900 vanco dose (02/04/2025 8:08 AM EDT) [facility] Vancomycin Trough 9.7(L) 10.0 - 20.0 mcg/mL LAB CHEMISTRY METHOD 02/04/2025 9:14 AM EDT [facility] Blood Venous blood specimen / Unknown Venipuncture / Unknown 02/04/2025 8:08 AM EDT 02/04/2025 8:41 AM EDT us Rosa Maria VELAZQUEZ LAB BLOOD ORDERABLES Final Resu lt Performing Organization Address [facility] Co de Phone Number [facility] [address] [place] [address], * (ABNORMAL) Basic metabolic panel (02/04/2025 8:08 AM EDT) Only the most recent of2 resultswithin the time period is included. Sodium 138 133 - 145 mmol/L LAB CHEMISTRY METHOD 02/04/2025 9:14 AM [facility] Potassium 3.9 3.5 - 5.5 mmol/L LAB CHEMISTRY METHOD 02/04/2025 9:14 AM [facility] Chloride 102 96 - 110 mmol/L LAB CHEMISTRY METHOD 02/04/2025 9:14 AM [facility] CO2 27 21 - 32 mmol/L LAB CHEMISTRY METHOD 02/04/2025 9:14 AM [facility] Anion Gap 9 3 - 11 LAB CHEMISTRY METHOD 02/04/2025 9:14 AM [facility] Glucose 237(H) 70 - 100 mg/dL LAB CHEMISTRY METHOD 02/04/2025 9:14 AM [facility] BUN 7 5 - 25 mg/dL LAB CHEMISTRY METHOD 02/04/2025 9:14 AM [facility] Creatinine 0.70 0.70 - 1.30 mg/dL LAB CHEMISTRY METHOD 02/04/2025 9:14 AM [facility] eGFR 117 >=60 mL/min/1. 73m2 LAB CHEMISTRY METHOD 02/04/2025 9:14 AM [facility] Comment:Calculation based on the??Chronic Kidney Disease Epidemiology Collaboration (CKD-EPI) equation refit??without adjustment for race. BUN/Creatinine Ratio 10.0 LAB CHEMISTRY METHOD 02/04/2025 9:14 AM [facility] Calcium 9.1 8.5 - 10.5 mg/dL LAB CHEMISTRY METHOD 02/04/2025 9:14 AM [facility] Blood Venous blood specimen / Unknown Venipuncture / Unknown 02/04/2025 8:08 AM EDT 02/04/2025 8:41 AM EDT Sarah Beth VELAZQUEZ LAB BLOOD ORDERABLES Final Result [facility] [address] [place] [address], [place] [phone] * [place] Extremity Nonvascular Limited Left (02/03/2025 [...] at 5 days 02/08/2025 4:01 AM EDT [facility] Blood Venous blood specimen / Unknown Venipuncture / Unknown 02/03/2025 12:35 AM EDT 02/03/2025 12:50 AM EDT Rosa Maria VELAZQUEZ LAB MICROBIOLOGY - GENERAL [place] Final Result [facility] ([facility]) [facility] [address] [place] [address], * XR Foot 3+ Views bilat (02/01/2025 [...] Signed Date: 02/01/2025 12:30 ET Workstation ID: [id number] Transcribed By: Self Edit Transcribed Date: 02/01/2025 [...] Signed Date: 02/01/2025 12:30 ET Workstation ID: [id number] Transcribed By: Self Edit Transcribed Date: 02/01/2025 [...] Signed Date: 02/01/2025 12:19 ET Workstation ID: [id number] Transcribed By: Self Edit Transcribed Date: 02/01/2025 [...] Signed Date: 02/01/2025 12:19 ET Workstation ID: [id number] Transcribed By: Self Edit Transcribed Date: 02/01/2025 12:18 ET us Tremaine Herrera DO CV VASCULAR PROCEDURES Final R esult * Lactate, with reflex (02/01/2025 9:59 AM EDT) LACTIC ACID 1.5 0.4 - 2.0 mmol/L LAB CHEMISTRY METHOD 02/01/2025 11:05 AM EDT [facility] Blood Venous blood specimen / Unknown Venipuncture / Unknown 02/01/2025 9:59 AM EDT 02/01/2025 10:38 AM EDT Tremaine Herrera DO LAB BLOOD ORDERABLES Final Res ult [facility] [address] [place] [address], [place] [phone] * (ABNORMAL) Sedimentation rate, automated (02/01/2025 9:59 AM EDT) Sed Rate 37(H) 0 - 15 mm/hr LAB HEMETOLOGY METHOD 02/01/2025 10:49 AM EDT [facility] Blood Venous blood specimen / Unknown Venipuncture / Unknown 02/01/2025 9:59 AM EDT 02/01/2025 10:37 AM EDT Drake Corey MD LAB BLOOD ORDERABLES Final Result Performing Organization Address City/[facility]/ZIP Co de Phone Number [facility] [address] [place] [address], [place] [phone] * (ABNORMAL) C-reactive protein (02/01/2025 9:59 AM EDT) C-Reactive Protein 2.23(H) <=0.50 mg/dL LAB CHEMISTRY METHOD 02/01/2025 11:06 AM EDT [facility] Blood Venous blood specimen / Unknown Venipuncture / Unknown 02/01/2025 9:59 AM EDT 02/01/2025 10:37 AM EDT Drake Corey MD LAB BLOOD ORDERABLES Final Result Performing Organization Address City/[facility] Co de Phone Number [facility] [address] [place] [address], [place] [phone] from Last 3 Months Insurance MEDICARE [place]ICA[place] - [place] Advance Directives Documents on File Type Date Recorded 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 Care Teams Sales Representative Consultant Relationship Specialty Start Date End Date Jas Babb MD [address] [place] [address] [address] [place], [place] PCP - General Internal Medicine 06/10/16
--- OUTSIDE RECORDS SUMMARY | 2025-03-06 16:56 | XMS_ITS | Encounter Summary ---
Author Organization [facility] Address [address] [place] [address] Care Team Providers Care Check Out Clerk Name Role Phone Jas Babb MD Primary Care Provider +1- [phone] Reason for Referral * Imaging (Routine) - Authorized Specialty Diagnoses / Procedures Referred By Contac t Referred To Contact Cardiology Procedures Stress echocardiogram (TTE) dobutamine with contrast, bubble, strain, and 3D PRN order panel NJ ECHOCARDIOGRAPHY TRANSTHORACIC 2D REST & STRESS W INTERPRETATION/REPORT NJ ECHOCARDIOGRAPHY TRANSTHORACIC 2D REST & STRESS W/M-MODE NJ DOPPLER ECHO COMPLETE NJ ECHOCARDIOGRAPHY DOPPLER COLOR FLOW MAPPING NJ CV TMST/BIKE MAX/SUBMAX CONTINUOUS ECG MON/PHARM STRESS SUPVSR ONLY NJ TEST STRESS CARDIOVASCULAR TRACING ONLY NJ CV STRESS TEST/BIKE CONT ECG MON/PHARM STRESS INTERP & REPORT ONLY Drake Corey MD [address] [place] [address] Phone: tel: fax: [facility] Referral ID Status Reason Start Date Expiration Date V isits Requested Visits Authorized [id number] Authorized 03/05/2025 03/05/2026 1 1 Reason for Visit * Reason Comments Chest Pain Encounter Details Date Type Department Care Team (Late st Contact Info) Description 03/05/2025 1:52 PM EDT - 03/05/2025 6:[address] [facility] Emergency [address] [place] [phone] Drake Corey MD [address] [place] [id number] Acute chest pain (Primary Dx) Discharge Disposition: [...] sent through Care Everywhere. * Chest Pain (Japanese) documented in this encounter Medications at Time [...] Means Destination Comment s Home or Self Senior Care documented in this encounter Progress Notes * [...] RN - 03/05/2025 1:52 PM EDT Bed: [facility] Expected date: Expected time: Means of arrival: Comments: hold documented in this encounter Plan of Treatment Upcoming Encounters Date Type Department Care Team (Late st Contact Info) Description 03/13/2025 10:00 AM EDT Office Visit Orthopedic Surgery - [place] [address] [phone] Jonathon Davidson, MARQUITA [address] [address] 03/25/2025 2:20 PM EDT Office Visit Gastroenterology - [place] 175 [address] 175 [facility] [address] [place] [phone] Faith Hernandez, AZAEL 175 [facility] [address] [place] [address] Scheduled Orders Name Type Priority Associated Diagnoses [...] * D-dimer, quantitative (03/05/2025 3:49 PM EDT) [facility] D-Dimer, Quant (D-DU) <150 <=230 ng/mL DDU LAB COAGULATION METHOD 03/05/2025 4:12 PM EDT [facility] Blood Venous blood specimen / Unknown Venipuncture / Unknown 03/05/2025 3:49 PM EDT 03/05/2025 3:56 PM EDT [facility] - 03/05/2025 4:12 PM EDT D-Dimer <230 ng/mL (D-Dimer units) is the threshold for exclusion of DVT/PE. D-Dimer may be elevated in: Critically ill, severely infected, trauma patients, DIC, acute CVA, acute CA, unstable angina, AF, old age, , and smoking. D-Dimer may be decreased with: Initiation of heparin therapy and oral anticoagulants. Drake Corey MD LAB BLOOD ORDERABLES Final Result [facility] [address] [place] [address], * Troponin I high sensitivity (03/05/2025 3:49 PM EDT) [facility] High Sensitivity Troponin I 7 <=79 ng/L LAB CHEMISTRY METHOD 03/05/2025 4:37 PM EDT [facility] Blood Venous blood specimen / Unknown Venipuncture / Unknown 03/05/2025 3:49 PM EDT 03/05/2025 3:56 PM EDT [facility] - 03/05/2025 4:37 PM EDT High levels of biotin in samples may falsely decrease hsTroponin values. ??Use caution when interpreting hsTroponin results in patients taking biotin who exhibit renal impairment (eGFR <60) or in patients taking more than 20 mg/day of biotin. Drake Corey MD LAB BLOOD ORDERABLES Final Result [facility] [address] [place] [address], [place] [phone] * XR Chest 2 Views (03/05/2025 3:13 [...] Signed Date: 03/05/2025 16:22 ET Workstation ID: [id number] Transcribed By: Self Edit Transcribed Date: 03/05/2025 [...] Signed Date: 03/05/2025 16:22 ET Workstation ID: [id number] Transcribed By: Self Edit Transcribed Date: 03/05/2025 16:22 ET Drake Corey MD IMG XR PROCEDURES Final Res ult * (ABNORMAL) CBC auto differential (03/05/2025 2:15 PM EDT) [facility] Signature WBC 10.3 4.8 - 10.8 K/mcL LAB HEMETOLOGY METHOD 03/05/2025 2:34 PM EDT [facility] RBC 5.50 4.50 - 5.50 M/mcL LAB HEMETOLOGY METHOD 03/05/2025 2:34 PM EDT [facility] Hemoglobin 15.3 13.5 - 17.5 g/dL LAB HEMETOLOGY METHOD 03/05/2025 2:34 PM EDT [facility] Hematocrit 44.5 42.0 - 54.0 % LAB HEMETOLOGY METHOD 03/05/2025 2:34 PM EDT [facility] MCV 81.1 79.0 - 98.0 FL LAB HEMETOLOGY [facility]/05[facility]2025 [facility] MCH 27.9 27.0 - 32.0 pcg LAB HEMETOLOGY METHOD 03/05/2025 2:34 PM EDT [facility] MCHC 34.4 32.0 - 37.0 g/dL LAB HEMETOLOGY METHOD 03/05/2025 2:34 PM EDT [facility] RDW 13.2 11.0 - 15.0 % LAB HEMETOLOGY METHOD 03/05/2025 2:34 PM EDT [facility] Platelets 354 130 - 400 K/mcL LAB HEMETOLOGY METHOD 03/05/2025 2:34 PM EDT [facility] MPV 9.3 7.0 - 11.0 FL LAB HEMETOLOGY METHOD 03/05/2025 2:34 PM EDT [facility] NRBC 0.0 <1.0 % LAB HEMETOLOGY METHOD 03/05/2025 2:34 PM EDT [facility] NRBC Absolute 0.00 <0.10 K/mcL LAB HEMETOLOGY METHOD 03/05/2025 2:34 PM [facility] Neutrophils Relative 69.1 % LAB HEMETOLOGY METHOD 03/05/2025 2:34 PM [facility] Lymphocytes Relative 24.2 % LAB HEMETOLOGY METHOD 03/05/2025 2:34 PM [facility] Monocytes Relative 4.2 % LAB HEMETOLOGY METHOD 03/05/2025 2:34 PM [facility] Eosinophils Relative 1.5 % LAB HEMETOLOGY METHOD 03/05/2025 2:34 PM [facility] Basophils Relative 0.5 % LAB HEMETOLOGY METHOD 03/05/2025 2:34 PM [facility] Immature Granulocytes Relative 0.5 % LAB HEMETOLOGY METHOD 03/05/2025 2:34 PM [facility] Neutrophils Absolute 7.11(H) 1.50 - 7.00 K/mcL LAB HEMETOLOGY METHOD 03/05/2025 2:34 PM [facility] Lymphocytes Absolute 2.49 1.00 - 5.00 K/mcL LAB HEMETOLOGY METHOD 03/05/2025 2:34 PM [facility] Monocytes Absolute 0.43 0.20 - 1.00 K/mcL LAB HEMETOLOGY METHOD 03/05/2025 2:34 PM [facility] Eosinophils Absolute 0.15 0.00 - 0.50 K/mcL LAB HEMETOLOGY METHOD 03/05/2025 2:34 PM [facility] Basophils Absolute 0.05 0.00 - 0.20 K/mcL LAB HEMETOLOGY METHOD 03/05/2025 2:34 PM [facility] Immature Granulocytes Absolute 0.05(H) 0.00 - 0.03 K/mcL LAB HEMETOLOGY METHOD 03/05/2025 2:34 PM [facility] Blood Venous blood specimen / Unknown Venipuncture / Unknown 03/05/2025 2:15 PM EDT 03/05/2025 2:28 PM EDT us Drake Corey MD LAB BLOOD ORDERABLES Final Result Performing Organization Address [facility]/ZIP Co de Phone Number [facility] [address] [place] [address], [place] [phone] * B-type natriuretic peptide (03/05/2025 2:15 PM EDT) BNP 11 <=100 pcg/mL LAB CHEMISTRY METHOD 03/05/2025 3:01 PM EDT [facility] Blood Venous blood specimen / Unknown Venipuncture / Unknown 03/05/2025 2:15 PM EDT 03/05/2025 2:28 PM EDT us Drake Corey MD LAB BLOOD ORDERABLES Final Result Performing Organization Address [facility]/ZIP Co de Phone Number [facility] [address] [place] [address], [place] [phone] * Magnesium (03/05/2025 2:15 PM EDT) Magnesium 2.0 1.9 - 2.6 mg/dL LAB CHEMISTRY METHOD 03/05/2025 3:01 PM EDT [facility] Blood Venous blood specimen / Unknown Venipuncture / Unknown 03/05/2025 2:15 PM EDT 03/05/2025 2:28 PM EDT us Drake Corey MD LAB BLOOD ORDERABLES Final Result Performing Organization Address City/[facility]/ZIP Co de Phone Number [facility] [address] [place] [address], [place] [phone] * Lipase (03/05/2025 2:15 PM EDT) Pathologist [facility] Lipase 39 13 - 75 unit/L LAB CHEMISTRY METHOD 03/05/2025 3:01 PM EDT [facility] Blood Venous blood specimen / Unknown Venipuncture / Unknown 03/05/2025 2:15 PM EDT 03/05/2025 2:28 PM EDT Drake Corey MD LAB BLOOD ORDERABLES Final Result [facility] [address] [place] [address], [place] [phone] * (ABNORMAL) Comprehensive metabolic panel (03/05/2025 2:15 PM EDT) [facility] Sodium 134 133 - 145 mmol/L LAB CHEMISTRY METHOD 03/05/2025 3:30 PM [facility] Potassium 4.0 3.5 - 5.5 mmol/L LAB CHEMISTRY METHOD 03/05/2025 3:30 PM [facility] Chloride 99 96 - 110 mmol/L LAB CHEMISTRY METHOD 03/05/2025 3:30 PM [facility] CO2 29 21 - 32 mmol/L LAB CHEMISTRY METHOD 03/05/2025 3:30 PM [facility] Anion Gap 6 3 - 11 LAB CHEMISTRY METHOD 03/05/2025 3:30 PM [facility] Glucose 187(H) 70 - 100 mg/dL LAB CHEMISTRY METHOD 03/05/2025 3:30 PM [facility] BUN 11 5 - 25 mg/dL LAB CHEMISTRY METHOD 03/05/2025 3:30 PM [facility] Creatinine 0.82 0.70 - 1.30 mg/dL LAB CHEMISTRY METHOD 03/05/2025 3:30 PM [facility] eGFR 112 >=60 mL/min/1. 73m2 LAB CHEMISTRY METHOD 03/05/2025 3:30 PM EDT [facility] Comment:Calculation based on the??Chronic Kidney Disease Epidemiology Collaboration (CKD-EPI) equation refit??without adjustment for race. BUN/Creatinine Ratio 13.4 LAB CHEMISTRY METHOD 03/05/2025 3:30 PM EDT [facility] Calcium 9.6 8.5 - 10.5 mg/dL LAB CHEMISTRY METHOD 03/05/2025 3:30 PM EDT [facility] AST (SGOT) 15 10 - 42 unit/L LAB CHEMISTRY METHOD 03/05/2025 3:30 PM EDT [facility] ALT (SGPT) 28 10 - 60 unit/L LAB CHEMISTRY METHOD 03/05/2025 3:30 PM EDT [facility] Alkaline Phosphatase 100 42 - 121 unit/L LAB CHEMISTRY METHOD 03/05/2025 3:30 PM EDT [facility] Total Protein 7.7 6.0 - 8.0 g/dL LAB CHEMISTRY METHOD 03/05/2025 3:30 PM EDT [facility] Albumin 4.2 3.2 - 5.0 g/dL LAB CHEMISTRY METHOD 03/05/2025 3:30 PM EDT [facility] Total Bilirubin 0.6 0.0 - 1.4 mg/dL LAB CHEMISTRY METHOD 03/05/2025 3:30 PM EDT [facility] Blood Venous blood specimen / Unknown Venipuncture / Unknown 03/05/2025 2:15 PM EDT 03/05/2025 2:28 PM EDT us Drake Corey MD LAB BLOOD ORDERABLES Final Result [facility] [address] [place] [address], * Troponin I high sensitivity (03/05/2025 2:15 PM EDT) High Sensitivity Troponin I 7 <=79 ng/L LAB CHEMISTRY METHOD 03/05/2025 3:04 PM EDT [facility] Blood Venous blood specimen / Unknown Venipuncture / Unknown 03/05/2025 2:15 PM EDT 03/05/2025 2:28 PM EDT Narrative [facility] - 03/05/2025 3:04 PM EDT High levels of biotin in samples may falsely decrease hsTroponin values. ??Use caution when interpreting hsTroponin results in patients taking biotin who exhibit renal impairment (eGFR <60) or in patients taking more than 20 mg/day of biotin. Drake Corey MD LAB BLOOD ORDERABLES Final Result Performing Organization Address [facility] Co de Phone Number [facility] [address] [place] [address], [place] [phone] * ECG 12 lead (03/05/2025 1:31 PM EDT) [facility] Ventricular Rate ECG 72 BPM GEMUSE Atrial Rate 72 BPM GEMUSE P-R Interval 150 ms GEMUSE QRS Duration 102 ms GEMUSE Q-T Interval 388 ms GEMUSE QTc 424 ms GEMUSE P Wave [place] 61 degrees GEMUSE R [place] -2 degrees GEMUSE T [place] 40 degrees GEMUSE ECG Interpretation Normal sinus rhythm Incomplete right bundle branch block Borderline ECG When compared with ECG of 11-OCT-2024 00:14, No significant change was found Confirmed by Manda SILVA JOHN ([id number]) on 03/05/2025 5:42:01 PM GEMUSE 03/05/2025 1:31 PM EDT 03/05/2025 5:42 PM EDT us Drake Corey MD ECG ORDERABLES Final Resul t Performing Organization Address City/[facility] Co de Phone Number GEMUSE documented in [...] 03/05/2025 documented in this encounter Care Teams Check Out Clerk Relationship Specialty Start Date End Date Jas Babb MD [address] [place] [address] [address] [place], [place] PCP - General Internal Medicine 06/10/16 documented as of this encounter
--- OUTSIDE RECORDS SUMMARY | 2025-03-06 16:56 | XMS_ITS | Encounter Summary ---
Author Organization [facility] Address [address] [place] [address] Care Team Providers Care Yoghurt Maker Name Role Phone Jas Babb MD Primary Care Provider +1- [phone] Reason for Visit * Reason Comments Post-op Cellulitis of left f ootControlled type 2 diabetes with neuropathy (CMS/HCC)Midfoot ulceration, left, with necrosis of muscle (CMS/HCC)Abscess of fifth toe of left foot Encounter Details Date Type Department Care Team (Late st Contact Info) Description 03/06/2025 8:30 AM EDT Office Visit Orthopedic Surgery - [place] [address] [phone] Jonathon Davidson, MARQUITA [address] [address] Social History Tobacco Use Types Packs/Day Years [...] AM EDT Office Visit Orthopedic Surgery - [place] [address] [phone] Jonathon Davidson, MARQUITA [address] [address] 03/25/2025 2:20 PM EDT Office Visit Gastroenterology - [place] 175 [facility] 175 [facility] [address] [place] [phone] Faith Hernandez, AZAEL [address] [facility] [address] [place] [address] documented as of this encounter Visit Diagnoses Not on filedocumented in this encounter Care Teams Yoghurt Maker Relationship Specialty Start Date End Date Jas Babb MD 75 [facility] [address] [place], [place] PCP - General Internal Medicine 06/10/16 documented as of this encounter
== END 2025-03-06 13:08 | disposition home or self-care (01) ==
LOC: HO.LNP 13:07
PROVIDERS: PCP Physician Assistant Medical; Visit Provider Surgery
DX: L98.9 Disorder of the skin and subcutaneous tissue, unspecified (principal); D23.4 Other benign neoplasm of skin of scalp and neck
CPT/HCPCS: 11423; 88304; 88305

== ENCOUNTER 2025-03-18 09:34 | Outpatient (AMB) | payer MEDICARE, MEDICAID, SELFPAY ==
--- NOTE | 2025-03-18 09:46 | MHC.OFFVIS ---
Vital Signs 03/18/25 09:53 Height 6 ft Weight 260 lb BMI 35.3 BP 146/76 H Blood Pressure Location Rt brachial Position Sitting Pulse 58 Intake Visit Reasons: S/p exc post neck/ sut removal Intake Note: Patient here s/p excision on post neck. Patient c/o: reports incision healing but feels inflamed. WLE: 03-06-2025 Promotions Officer Required: No Accompanied by: Spouse Allergies acetaminophen [From Tylenol] Allergy (Verified 03/18/25 09:53) hives prednisone Allergy (Verified 03/18/25 09:53) hives/vomiting HPI HPI S/p exc post neck/ sut removal: Details: He had undergone excision of a posterior neck lesion under local anesthesia in the office last 03/06/2025. He tolerated the procedure well. He currently denies significant complaints. [facility] Medical History (Updated 03/18/25 @ 09:52 by Vladimir Romero MD) Pyogenic granuloma Benign skin lesion of neck Sleep apnea Right groin hernia Diabetes Neuropathy Acid reflux HTN (hypertension) Surgical History Hx of surgical procedure (03/06/25) History of amputation of left fifth toe Social History Alcohol intake: current Alcohol intake frequency: a few times a month Alcohol type: beer and hard liquor Tobacco use type: Smokeless Tobacco Review of Systems Const Denies chills and Denies fever(s) Physical Exam Const General: comfortable and no acute distress Neck Other: Excision sites well healed, sutures intact, no evidence of infection Assessment & Plan Assessment & Plan (1) Pyogenic granuloma: Code(s): L98.0 - Pyogenic granuloma Category: Medical Plan: He is status post excision of a skin lesion on the posterior neck. His path report shows a pyogenic granuloma His incision is well healed. His sutures were removed. He understands the benign nature of this pathology He can follow up on a p.r.n. basis. Coding Level of Care Code Global (93691) Diagnoses Pyogenic granuloma L98.0
[2025-03-18 09:53] VITALS: BP 146/76; PULSE 58; BMI 35.3
--- OUTSIDE RECORDS SUMMARY | 2025-03-18 10:35 | XMS_ITS | Encounter Summary ---
Author Organization [facility] Address [address] [place] [address] Care Team Providers Care Digital Marketing Consultant Name Role Phone Jas Babb MD Primary Care Provider +1- [phone] Reason for Visit * Reason Comments Foot Pain B/l ulcer Encounter Details Date Type Department Care Team ([facility] st Contact Info) Description 03/13/2025 10:00 AM EDT Office Visit Orthopedic Surgery - [place] 250 175 [facility] [address] [place] [phone] Jonathon Davidson, DPM [address] [address] Cellulitis of left foot (Primary Dx); Poorly controlled type 2 diabetes mellitus with neuropathy ([facility] V24, [facility] V28); 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 20 each 03/13/2025 03/23/2025 documented in this encounter Progress Notes * Jonathon Davidson DPM - 03/13/2025 10:00 AM EDT Referring MD:umair Last PCP visit: 01/14/2025 IDENTIFIER: @TITLE@ Torsten is a 44 y.o. year old male who presents for consultation. CC: Left foot wound HPI: 44-year-old male returns office for bilateral foot wounds. Patient notes he is continue to change his bandage daily. Patient notes that [facility] is only giving him 15 days of dressings at a time.Patient notes that he has had some green drainage coming from the left foot wound though the wound has decreased in size since previous visit. Patient denies any fever nausea vomiting shortness of breath. Patient is here for evaluation treatment ROS: GENERAL: Pt denies nausea, fever, vomiting, chills, or shortness of breath. Pt in NAD. CARDIOLOGY: pt denies chest pain, palpitations LUNGS: pt denies shortness of breath MUSCULOSKELETAL: See HPI, otherwise no joint pain or swelling, back pain, or muscle pain. SKIN: see HPI, otherwise no lesions, rash or itching NEURO: No persistent headache, weakness or numbness The remainder of the review of systems is noncontributory PAST MEDICAL HISTORY: Patient Active Problem List Diagnosis Anxiety state Asthma Bipolar disorder ([facility] V24, [facility] V28) Chronic back pain Depressive disorder Diabetes mellitus type 2 with neurological manifestations ([facility] V24, [facility] V28) Esophageal reflux Essential hypertension Hypothyroid Obstructive sleep apnea Peripheral neuropathy Morbid obesity with BMI of 40.0-44.9, adult ([facility] V24, [facility] V28) Cellulitis of foot, left SOCIAL HISTORY: Social History Tobacco Use Smoking status: Former Smokeless tobacco: Current Substance Use Topics Alcohol use: Yes Comment: Social consumption ACTIVE MEDICATIONS: No outpatient medications have been marked as taking for the 03/13/25 encounter (Office Visit) with Jonathon Davidson DPM. ALLERGIES: @ALL@ PHYSICAL EXAM: There were no vitals taken for this visit. PODIATRIC EXAMINATION: GENERAL: Patient appears well nourished, with NAD. VASCULAR: Dorsalis pedis pulses are 2/4 bilaterally and Posterior tibial pulses are 2/4 bilaterally. Capillary filling time within normal limits the digits. No pallor on elevation or rubor on dependency. Positive hair growth. No varicosities. Denies rest pain or claudication pain. NEUROLOGICAL: Sharp/dull sensation intact, protective sensation diminished on [place]. Multiple peripheral neuropathies bilaterally ORTHOPEDIC: Good muscle strength 5/5 of all flexors and extensors. Dorsi flexion of ankle ,10 degrees, plantar flexion WNL. No muscle atrophy. Previous amputation of the left great toe DERMATOLOGICAL:.Wound to the plantar lateral aspect of the left foot has decreased to 2.0 cm in diameter with a fibrogranular base. No longer having malodor purulent drainage. No deep tracking. Upon debridement there was a good bleeding base. Small ulcerations to the lateral border of the left footextending 2 cm x 3 mm with high irregular hyperkeratotic rim. Right great toe with a small 3 mm wound with some erythema without any streaking cellulitis or clinical signs of infection. BIOMECHANICS: STJ ROM wnl, MTJ ROM wnl, 1st MPJ ROM wnl. IMPRESSION: 1. Cellulitis of left foot 2. Poorly controlled type 2 diabetes mellitus with neuropathy (CMS/HCC V24, CMS/HCC V28) 3. 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 Chronic ulcer of right great toe, with fat layer exposed (CMS/HCC V24, CMS/HCC V28) PLAN: Pt was seen and examined, history reviewed. Patient has has been checking his sugar and keeping it lower consistently. Patient was educated if this is helping close down the wound size Patient's redness and swelling seems to be resolving. Patient encouraged to keep her dressing cleandry and intact to the bilateral feet daily Patient was educated that the lateral foot wound continues to receive pressure. Patient encouraged to be off weightbearing consistently. New offloading pads were made for patient. Updated order was sent to [place] for 30-day supply of both dressings. Green drainage coming from the left lateral wound patient was placed on ciprofloxacin for 10 days 500 mg twice daily. Open wound selective debridement of devitalized soft tissue, fibrin, epidermis, dermis, thru skin and subcutaneous tissue, first 20 sq cm or less, using sterile sharp dissection #15 scalpel blade of the left submetatarsal 5 wound. Pt. deferred anesthesia. . Devitalized tissue was not sent to pathology. Patient will continue to attempt to use the bandaging instructions and the offloading pads with a surgical shoe over the next week and we will reevaluate him at that time. Patient understands he may need a referral to wound care to be evaluated for possible use of skin substitute grafts to close the enlarged area to the plantar aspect the left foot. Patient instructed to continue with the crutches to keep full weightbearing of the foot as often aspossible. Patient's wound is decreasing in size and there is improving tremendously. Jonathon Davidson DPM documented in this encounter Plan of Treatment Upcoming Encounters Date Type Department Care Team (Late st Contact Info) Description 03/19/2025 10:15 AM EDT Office Visit Orthopedic Surgery - [place] 250 175 [facility] [address] [place] [phone] Jonathon Davidson, DPKeri 175 [facility] 250 [place] [address] 03/25/2025 2:20 PM EDT Office Visit Gastroenterology - [place] 175 [address] 175 [facility] [address] [place] [phone] Faith Hernandez NP 175 [facility] 200 [place] [address] documented as of this encounter Visit Diagnoses Diagnosis Cellulitis of left foot- Primary Poorly controlled type 2 diabetes mellitus with neuropathy (CMS/HCC V24, CMS/HCC V28) 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
--- OUTSIDE RECORDS SUMMARY | 2025-03-18 10:35 | XMS_ITS | Encounter Summary ---
Author Organization [facility] Address [address] [place] [address] Care Team Providers Care Pipefitter Name Role Phone Jas Babb MD Primary Care Provider [phone] Reason for Visit * Reason Onset Date Comments PROVIDER CALL BACK 03/06/2025 Encounter Details Date Type Department Care Team ([facility] st Contact Info) Description 03/06/2025 Telephone Gastroenterology - [facility] [address] [facility] [address] [place] [phone] Faith Hernandez NP [address] [facility] [address] [place] [address] PROVIDER CALL BACK Social History Tobacco Use [...] AM EDT Patient calling, was seen in [facility] ED yesterday, having a lot of issues/pain with eating and swallowing. Has f/u appt already scheduled next month but would like call back. documented in this encounter Plan of Treatment Upcoming Encounters Date Type Department Care Team (Late st Contact Info) Description 03/19/2025 10:15 AM EDT Office Visit Orthopedic Surgery - [facility] [address] [facility] [address] [place] [id number] Jonathon Davidson, MARQUITA 175 [facility] [address] [place] [address] 03/25/2025 2:20 PM EDT Office Visit Gastroenterology - [facility] [address] [facility] 175 [facility] [address] [place] [phone] Faith Hernandez, AZAEL [address] [facility] [address] [place] [address] documented as of this encounter Visit Diagnoses Not on filedocumented in this encounter Care Teams Pipefitter Relationship Specialty Start Date End Date Jas Babb MD [address] [facility] [address] [place], [place] PCP - General Internal Medicine 06/10/16 documented as of this encounter
--- OUTSIDE RECORDS SUMMARY | 2025-03-18 10:35 | XMS_ITS | Clinical Summary ---
Author Organization 175 [facility] Address [address] [place] [address] Phone Care Team Providers Care Financial Assistance Advisor Name Role Phone Jas Babb MD Primary Care Provider [phone] Allergies Active Allergy Reactions Criticality Noted Date [...] before meals and at bedtime 360 each 5 04/21/20 25 Active ARIPiprazole (ABILIFY) 5 mg tablet Take 1 tablet (5 mg total) by mouth at bedtime. 5 Active nicotine polacrilex (NICORETTE) [address] 1 each (4 mg total) into mouth between cheek and gum every 2 (two) hours if needed for smoking cessation. 5 Active tiZANidine (ZANAFLEX) 2 mg tablet Take 1 tablet (2 mg total) by mouth 2 (two) times a day if needed for muscle spasms. 5 Active amLODIPine (NORVASC) 5 mg tablet Take 2 tablets (10 mg total) by mouth 1 (one) time each day. 60 each 5 Active metoprolol succinate (TOPROL-XL) 25 mg 24 hr tablet Take 1 tablet (25 mg total) by mouth 1 (one) time each day. Do not crush or chew. 30 each 5 Active pantoprazole (PROTONIX) 40 mg EC tablet Take 1 tablet (40 mg total) by mouth 1 (one) time each day. Do not crush, chew, or split. 30 each 5 04/04/20 25 Active ciprofloxacin (Cipro) 500 mg tablet Take 1 tablet (500 mg total) by mouth 2 (two) times a day for 10 days. 20 each 5 03/23/20 25 Active lansoprazole (PREVACID) [address] capsuleIndicati ons:Gastroesoph ageal reflux disease, unspecified whether esophagitis present Take 1 capsule (30 mg total) by mouth 1 (one) time each day. 30 capsule 3 5 03/05/20 25 Discontinu ed(Discont inued by another clinician) saccharomyces boulardii (FLORASTOR) 250 mg capsule Take 1 capsule (250 mg total) by mouth 2 (two) times a day for 14 days. 28 capsule 5 02/19/20 25 mupirocin (BACTROBAN) 2 % ointment Apply topically 1 (one) time each day for 10 days. 22 g 2 5 03/16/20 25 Active Problems Problem Noted Date Diagnosed Date Cellulitis of foot, left 02/02/2025 Anxiety state 09/25/2024 Bipolar disorder ([facility] V24, [facility] V28) 04/2024 Chronic back pain 09/25/2024 Depressive disorder 09/25/2024 Esophageal reflux 09/25/2024 Essential hypertension 09/25/2024 Hypothyroid 09/25/2024 Obstructive sleep apnea 09/25/2024 Peripheral neuropathy 09/25/2024 Morbid obesity with BMI of 4 0.0-44.9, adult ([facility] V24, [facility] V28) 09/25/2024 Asthma 04/29/2019 Diabetes mellitus type 2 wit h neurological manifestations ([facility] V24, [facility] V28) 12/20/2017 Encounters Date Type Department Care Team Description 03/13/2025 10:00 AM EDT Office Visit Orthopedic Surgery - [place] 250 175 [facility] [address] [place] [phone] Jonathon Davidson DPM Cellulitis of left foot (Primary Dx); Poorly controlled type 2 diabetes mellitus with neuropathy ([facility] V24, [facility] V28); 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, left, with fat layer exposed ([facility] V24, [facility] V28); Chronic ulcer of right great toe, with fat layer exposed ([facility] V24, [facility] V28) 03/10/2025 2:16 PM EDT - 03/10/2025 6:05 PM EDT [facility] Emergency [address] [place] [phone] Esophagitis (Primary Dx) Discharge Disposition: Home or Self Care 03/07/2025 Telephone [facility] Emergency [address] [place] [phone] Drake Corey MD INCOMPLETE ORDER 03/06/2025 8:30 AM EDT Office Visit Orthopedic Surgery [facility] [address] [phone] Jonathon Davidson DPM Cellulitis of left foot (Primary Dx); Poorly controlled type 2 diabetes mellitus with neuropathy ([facility] V24, [facility] V28); 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 175 [facility] 200 [place] [phone] Faith Hernandez NP PROVIDER CALL BACK 03/05/2025 1:52 PM EDT - 03/05/2025 6:24 PM EDT Emergency [facility] Emergency [address] [place] [phone] Drake Corey MD Acute chest pain (Primary Dx) Discharge Disposition: Home or Self Care 02/27/2025 1:15 PM EDT Office Visit Orthopedic Surgery [place] [address] [phone] Jonathon Davidson A, DPM Poorly controlled type 2 diabetes mellitus with neuropathy (CMS/HCC V24, CMS/HCC V28) (Primary Dx); Cellulitis of left foot; 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, left, with fat layer exposed (CMS/HCC V24, CMS/HCC V28); Chronic ulcer of right great toe, with fat layer exposed (CMS/HCC V24, CMS/HCC V28) 02/20/2025 1:30 PM EDT Office Visit Orthopedic Surgery [facility] [address] [phone] Jonathon Davidson A, DPM Poorly controlled type 2 diabetes mellitus with neuropathy (CMS/HCC V24, CMS/HCC V28) (Primary Dx); Cellulitis of left foot; 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, left, with fat layer exposed (CMS/HCC V24, CMS/HCC V28); Chronic ulcer of right great toe, with fat layer exposed (CMS/HCC V24, CMS/HCC V28) 02/13/2025 Telephone Orthopedic Surgery [facility] [address] [phone] Jonathon Davidson A, DPM Scooter 02/12/2025 1:00 PM EDT Office Visit Orthopedic Surgery [facility] [address] [phone] Jody Davidsonyd A, DPM Poorly controlled type 2 diabetes mellitus with neuropathy (CMS/HCC V24, CMS/HCC V28) (Primary Dx); Cellulitis of left foot; 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, left, with fat layer exposed (CMS/HCC V24, CMS/HCC V28) 02/02/2025 8:14 PM EDT - 02/04/2025 12:09 PM EDT [facility] [address] [place] [phone] Coby Brasher DO Ishtiaq, Rizwan, MD Kela, Kashyap Devendrabhai, MD Cellulitis of foot, left (Primary Dx); Cellulitis of foot, right Discharge Disposition: Home or Self Care 02/01/2025 9:07 AM EDT - 02/01/2025 2:35 PM EDT Emergency [facility] Emergency [address] [place] [phone] Tremaine Herrera DO Leg pain, diffuse, left (Primary Dx); Bilateral cellulitis of lower leg Discharge Disposition: Left Against Medical Advice 01/21/2025 1:20 PM EST Office Visit Gastroenterology [facility] [address] [phone] Faith Hernandez NP Chronic gastric ulcer without hemorrhage and without perforation (Primary Dx); Hiatal hernia with GERD; Colonoscopy refused 01/10/2025 Telephone [facility] [address] [phone] Faith Hernandez NP Forms/questionnaire s 12/23/2024 10:30 AM EST Office Visit Orthopedic Surgery [facility] [address] [phone] Jonathon Davidson DPM Poorly controlled type 2 diabetes mellitus with neuropathy ([facility] V24, [facility] V28) (Primary Dx); Cellulitis of left foot; 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, left, with fat layer exposed (CMS/HCC V24, CMS/HCC V28); Non-pressure chronic ulcer of left ankle with fat layer exposed ([facility] V24, CMS/HCC V28) from Last 3 Months Surgical History Surgery Date Site/Laterality Comments HERNIA REPAIR 04/2014 Right PROCEDURE: REPAIR INGUINAL HERNIA; COMMENT: incarcerated ESOPHAGOGASTRODUODENOSCOPY TOE AMPUTATION Left great toe partial amputation Medical History Medical History Date Comments Anxiety state DX:Anxiety state Asthma 04/29/2019 DX:Asthma Bipolar disorder ([facility] V2 4, CMS/HCC V28) DX:Bipolar disorder (HCC) Chronic back pain DX:Chronic frederick k pain Depressive disorder DX:Depressiv e disorder Diabetes mellitus type 2 wit h neurological manifestations ([facility] V24, [facility] V28) 12/20/2017 DX:Diabetes mellitus type 2 with neurological manifestations ([facility]) Esophageal reflux DX:Esophageal reflux Essential hypertension DX:Essent ial hypertension Morbid obesity with BMI of 4 0.0-44.9, adult ([facility] V24, [facility] V28) DX:Morbid obesity wit h BMI of 40.0-44.9, adult ([facility]) Obstructive sleep apnea DX:Obstr uctive sleep apnea [...] Sign Reading Time Taken Comments Blood Pressure 172/101 03/10/2025 1:44 PM EDT Pulse 76 03/10/2025 1:44 PM EDT Temperature 37 ??C (98.6 ??F) 03/10/2025 1:44 PM EDT Respiratory Rate 16 03/10/2025 1:44 PM EDT Oxygen Saturation 97% 03/10/2025 1:44 PM EDT Inhaled Oxygen Concentration - - Weight 118 kg (260 lb) 03/10/2025 11:26 AM EDT Height 182.9 cm (6') 03/10/2025 11:26 AM EDT Body Mass Index 35.26 03/10/2025 11:26 AM EDT Plan of Treatment Upcoming Encounters Date Type Department Care Team (Late st Contact Info) Description 03/19/2025 10:15 AM EDT Office Visit Orthopedic Surgery [facility] 250 175 [facility] 250 [place] [phone] Jonathon Davidson, MARQUITA 175 [facility] [address] [place] [address] 03/25/2025 2:20 PM EDT Office Visit Gastroenterology - [place] 175 [facility] 175 [facility] 200 [place] [phone] Faith Hernandez, AZAEL 175 [facility] 200 [place] [address] Health Maintenance Due Date Last Done Comments [...] 02/02/2025 Diabetes: Annual GFR (Glomerular Filtration Rate) 03/10/2026 03/10/2025, 03/05/2025, 02/04/2025, Additional history exists Hypertension/CHF/CAD Annual BMP Blood Test 03/10/2026 03/10/2025, 03/05/2025, 02/04/2025, Additional history exists HIB Vaccines Aged Out [...] Priority Date/Time Associated Diagnosis Comments ECG ANNOTATED 03/11/2025 XR CHEST 2 VIEWS STAT 03/10/2025 11:5 1 AM EDT CBC WITH AUTO DIFFERENTIAL STAT 03/10/2025 11:39 AM EDT B-TYPE NATRIURETIC PEPTIDE STAT 03/10/2025 11:39 AM EDT MAGNESIUM STAT 03/10/2025 11:39 AM EDT LIPASE STAT 03/10/2025 11:39 AM EDT COMPREHENSIVE METABOLIC PANEL STAT 03/10/2025 11:39 AM EDT CBC AND DIFFERENTIAL STAT 03/10/2025 11:39 AM EDT TROPONIN I HIGH SENSITIVITY STAT 03/10/2025 11:39 AM EDT ECG 12-LEAD STAT 03/10/2025 11:36 AM EDT ECG ANNOTATED 03/06/2025 D-DIMER STAT 03/05/2025 3:49 [...] from Last 3 Months Results * ECG-Annotated (03/11/2025) Only the most recent of2 resultswithin the time period is included. us Provider Onbase MD ECG ORDERABLES Final Result * XR Chest 2 Views (03/10/2025 11:51 AM EDT) Only the most recent of2 resultswithin the time period is included. Anatomical Region Laterality Modality Body Radiographic Siomara ging 03/10/2025 12:0 3 PM EDT Impressions 03/10/2025 12:04 PM EDT No acute chest disease. No suspicious interval change. -------- FINAL REPORT -------- Dictated By: Jorge Schaeffer Dictated Date: 03/10/2025 12:03 ET Assigned Physician: Jorge Schaeffer Reviewed and Electronically Signed By: Jorge Schaeffer Signed Date: 03/10/2025 12:04 ET Workstation ID: [id number] Transcribed By: Self Edit Transcribed Date: 03/10/2025 12:03 ET Narrative 03/10/2025 12:04 PM EDT EXAMINATION: CHEST CLINICAL INFORMATION: Chest pain COMPARISON: Frontal view 03/05/25 TECHNIQUE: 2 views of the chest FINDINGS: There is moderate rotation to the right. The cardiac size is within normal limits. There is an unchanged configuration to the aortic arch which suggests an anomalous intercostal vein which does not require any imaging follow-up. The sohan, vasculature, lungs and visualized pleural margins are within normal limits. Procedure Note Jorge Schaeffer MD - 03/10/2025 EXAMINATION: CHEST CLINICAL INFORMATION: Chest pain COMPARISON: Frontal view 03/05/25 TECHNIQUE: 2 views of the chest FINDINGS: There is moderate rotation to the right. The cardiac size is within normallimits. There is an unchanged configuration to the aortic arch whichsuggests an anomalous intercostal vein which does not require any imagingfollow-up. The sohan, vasculature, lungs and visualized pleural margins are withinnormal limits. IMPRESSION: No acute chest disease. No suspicious interval change. -------- FINAL REPORT -------- Dictated By: Jorge Schaeffer Dictated Date: 03/10/2025 12:03 ET Assigned Physician: Jorge Schaeffer Reviewed and Electronically Signed By: Jorge Schaeffer Signed Date: 03/10/2025 12:04 ET Workstation ID: [id number] Transcribed By: Self Edit Transcribed Date: 03/10/2025 12:03 ET us Yadiel Strong MD IMG XR PROCEDURES Final Result * Troponin I high sensitivity (03/10/2025 11:39 AM EDT) Only the most recent of3 resultswithin the time period is included. High Sensitivity Troponin I 9 <=79 ng/L LAB CHEMISTRY METHOD 03/10/2025 12:54 PM EDT [facility] Blood Venous blood specimen / Unknown Venipuncture / Unknown 03/10/2025 11:39 AM EDT 03/10/2025 12:11 PM EDT Narrative [facility] - 03/10/2025 12:54 PM EDT High levels of biotin in samples may falsely decrease hsTroponin values. ??Use caution when interpreting hsTroponin results in patients taking biotin who exhibit renal impairment (eGFR <60) or in patients taking more than 20 mg/day of biotin. us Yadiel Strong MD LAB BLOOD ORDERABLES Final Resu lt [facility] [address] [place] [address], * (ABNORMAL) CBC auto differential (03/10/2025 11:39 AM EDT) Only the most recent of6 resultswithin the time period is included. [facility] WBC 8.4 4.8 - 10.8 K/mcL LAB HEMETOLOGY METHOD 03/10/2025 12:25 PM EDT [facility] RBC 5.10 4.50 - 5.50 M/mcL LAB HEMETOLOGY METHOD 03/10/2025 12:25 PM EDT [facility] Hemoglobin 14.2 13.5 - 17.5 g/dL LAB HEMETOLOGY METHOD 03/10[facility]25 [facility] Hematocrit 41.6(L) 42.0 - 54.0 % LAB HEMETOLOGY METHOD 03/10/2025 12:25 [facility] MCV 81.3 79.0 - 98.0 FL LAB HEMETOLOGY METHOD 03/10/2025 12:[facility] MCH 27.7 27.0 - 32.0 pcg LAB HEMETOLOGY METHOD 03/10/2025 12:25 [facility] MCHC 34.1 32.0 - 37.0 g/dL LAB HEMETOLOGY METHOD 03/10/2025 12:25 PM EDT [facility] RDW 12.9 11.0 - 15.0 % LAB HEMETOLOGY METHOD 03/10/2025 12:25 PM EDT [facility] Platelets 306 130 - 400 K/mcL LAB HEMETOLOGY METHOD 03/10/2025 12:25 PM EDT [facility] MPV 9.8 7.0 - 11.0 FL LAB HEMETOLOGY METHOD 03/10/2025 12:25 PM EDT [facility] NRBC 0.0 <1.0 % LAB HEMETOLOGY METHOD 03/10/2025 12:25 PM EDT [facility] NRBC Absolute 0.00 <0.10 K/mcL LAB HEMETOLOGY METHOD 03/10/2025 12:25 PM [facility] Neutrophils Relative 65.7 % LAB HEMETOLOGY METHOD 03/10/2025 12:25 PM [facility] Lymphocytes Relative 26.1 % LAB HEMETOLOGY METHOD 03/10/2025 12:25 [facility] Monocytes Relative 5.2 % LAB HEMETOLOGY METHOD 03/10/2025 12:25 PM [facility] Eosinophils Relative 1.9 % LAB HEMETOLOGY METHOD 03/10/2025 12:25 PM [facility] Basophils Relative 0.6 % LAB HEMETOLOGY METHOD 03/10/2025 12:25 PM [facility] Immature Granulocytes Relative 0.5 % LAB HEMETOLOGY METHOD 03/10/2025 12:25 PM [facility] Neutrophils Absolute 5.51 1.50 - 7.00 K/mcL LAB HEMETOLOGY METHOD 03/10/2025 12:25 PM [facility] Lymphocytes Absolute 2.19 1.00 - 5.00 K/mcL LAB HEMETOLOGY METHOD 03/10/2025 12:25 PM [facility] Monocytes Absolute 0.44 0.20 - 1.00 K/mcL LAB HEMETOLOGY METHOD 03/10/2025 12:25 PM [facility] Eosinophils Absolute 0.16 0.00 - 0.50 K/mcL LAB HEMETOLOGY METHOD 03/10/2025 12:25 PM [facility] Basophils Absolute 0.05 0.00 - 0.20 K/mcL LAB HEMETOLOGY METHOD 03/10/2025 12:25 [facility] Immature Granulocytes Absolute 0.04(H) 0.00 - 0.03 K/mcL LAB HEMETOLOGY METHOD 03/10/2025 12:25 PM EDT [facility] Blood Venous blood specimen / Unknown Venipuncture / Unknown 03/10/2025 11:39 AM EDT 03/10/2025 12:11 PM EDT us Yadiel Strong MD LAB BLOOD ORDERABLES Final Resu lt Performing Organization Address [facility] Co de Phone Number [facility] [address] [place] [address], [place] [phone] * B-type natriuretic peptide (03/10/2025 11:39 AM EDT) Only the most recent of2 resultswithin the time period is included. BNP 42 <=100 pcg/mL LAB CHEMISTRY METHOD 03/10/2025 1:38 PM EDT [facility] Blood Venous blood specimen / Unknown Venipuncture / Unknown 03/10/2025 11:39 AM EDT 03/10/2025 12:11 PM EDT us Yadiel Strong MD LAB BLOOD ORDERABLES Final Resu lt Performing Organization Address [facility] Co de Phone Number [facility] [address] [place] [address], [place] [phone] * (ABNORMAL) Magnesium (03/10/2025 11:39 AM EDT) Only the most recent of3 resultswithin the time period is included. Magnesium 1.6(L) 1.9 - 2.6 mg/dL LAB CHEMISTRY METHOD 03/10/2025 12:42 PM EDT [facility] Blood Venous blood specimen / Unknown Venipuncture / Unknown 03/10/2025 11:39 AM EDT 03/10/2025 12:11 PM EDT us Yadiel Strong MD LAB BLOOD ORDERABLES Final Resu lt Performing Organization Address [facility]/ZIP Co de Phone Number [facility] [address] [place] [address], [place] [phone] * Lipase (03/10/2025 11:39 AM EDT) Only the most recent of2 resultswithin the time period is included. Pathologist [facility] Lipase 48 13 - 75 unit/L LAB CHEMISTRY METHOD 03/10/2025 12:42 PM EDT [facility] Blood Venous blood specimen / Unknown Venipuncture / Unknown 03/10/2025 11:39 AM EDT 03/10/2025 12:11 PM EDT us Yadiel Strong MD LAB BLOOD ORDERABLES Final Resu lt Performing Organization Address [facility] Co de Phone Number [facility] [address] [place] [address], [place] [phone] * (ABNORMAL) Comprehensive metabolic panel (03/10/2025 11:39 AM EDT) Only the most recent of4 resultswithin the time period is included. Pathologist [facility] Sodium 135 133 - 145 mmol/L LAB CHEMISTRY METHOD 03/10/2025 12:42 PM EDT [facility] Potassium 4.2 3.5 - 5.5 mmol/L LAB CHEMISTRY METHOD 03/10/2025 12:42 PM EDT [facility] Chloride 100 96 - 110 mmol/L LAB CHEMISTRY METHOD 03/10/2025 12:42 PM EDT [facility] CO2 28 21 - 32 mmol/L LAB CHEMISTRY METHOD 03/10/2025 12:42 PM EDT [facility] Anion Gap 7 3 - 11 LAB CHEMISTRY METHOD 03/10/2025 12:42 PM EDT [facility] Glucose 299(H) 70 - 100 mg/dL LAB CHEMISTRY METHOD 03/10/2025 12:42 PM [facility] BUN 10 5 - 25 mg/dL LAB CHEMISTRY METHOD 03/10/2025 12:42 PM [facility] Creatinine 0.82 0.70 - 1.30 mg/dL LAB CHEMISTRY METHOD 03/10/2025 12:42 PM [facility] eGFR 112 >=60 mL/min/1. 73m2 LAB CHEMISTRY METHOD 03/10/2025 12:42 PM [facility] Comment:Calculation based on the??Chronic Kidney Disease Epidemiology Collaboration (CKD-EPI) equation refit??without adjustment for race. BUN/Creatinine Ratio 12.2 LAB CHEMISTRY METHOD 03/10/2025 12:42 PM [facility] Calcium 9.9 8.5 - 10.5 mg/dL LAB CHEMISTRY METHOD 03/10/2025 12:42 PM [facility] AST (SGOT) 11 10 - 42 unit/L LAB CHEMISTRY METHOD 03/10/2025 12:42 PM [facility] ALT (SGPT) 23 10 - 60 unit/L LAB CHEMISTRY METHOD 03/10/2025 12:42 PM [facility] Alkaline Phosphatase 97 42 - 121 unit/L LAB CHEMISTRY METHOD 03/10/2025 12:42 PM [facility] Total Protein 7.4 6.0 - 8.0 g/dL LAB CHEMISTRY METHOD 03/10/2025 12:42 PM [facility] Albumin 3.9 3.2 - 5.0 g/dL LAB CHEMISTRY METHOD 03/10/2025 12:42 PM [facility] Total Bilirubin 0.4 0.0 - 1.4 mg/dL LAB CHEMISTRY METHOD 03/10/2025 12:42 PM [facility] Blood Venous blood specimen / Unknown Venipuncture / Unknown 03/10/2025 11:39 AM EDT 03/10/2025 12:11 PM EDT us Yadiel Strong MD LAB BLOOD ORDERABLES Final Resu lt [facility] [address] [place] [address], [place] [phone] * ECG 12 lead (03/10/2025 11:36 AM EDT) Only the most recent of2 resultswithin the time period is included. Pathologist [facility] Ventricular Rate ECG 73 BPM GEMUSE Atrial Rate 73 BPM GEMUSE P-R Interval 158 ms GEMUSE QRS Duration 106 ms GEMUSE Q-T Interval 376 ms GEMUSE QTc 414 ms GEMUSE P Wave [place] 49 degrees GEMUSE R [place] -12 degrees GEMUSE T [place] 20 degrees GEMUSE ECG Interpretation Normal sinus rhythm Incomplete right bundle branch block Borderline ECG When compared with ECG of 05-MAR-2025 13:31, No significant change was found Confirmed by Manda HOBSON JAMES ([id number]) on 03/10/2025 12:49:13 PM GEMUSE 03/10/2025 11:3 6 AM EDT 03/10/2025 12:49 PM EDT us Yadiel Strong MD ECG ORDERABLES Final Result Performing Organization Address [facility] Co de Phone Number GEMUSE * D-dimer, quantitative (03/05/2025 3:49 PM EDT) Pathologist [facility] D-Dimer, Quant (D-DU) <150 <=230 ng/mL DDU LAB COAGULATION METHOD 03/05/2025 4:12 PM EDT [facility] Blood Venous blood specimen / Unknown Venipuncture / Unknown 03/05/2025 3:49 PM EDT 03/05/2025 3:56 PM EDT Narrative [facility] - 03/05/2025 4:12 PM EDT D-Dimer <230 ng/mL (D-Dimer units) is the threshold for exclusion of DVT/PE. D-Dimer may be elevated in: Critically ill, severely infected, trauma patients, DIC, acute CVA, acute NV, unstable angina, AF, old age, , and smoking. D-Dimer may be decreased with: Initiation of heparin therapy and oral anticoagulants. Drake Corey MD LAB BLOOD ORDERABLES Final Result Performing Organization Address [facility]/ZIP Co de Phone Number [facility] [address] [place] [address], * ECG-Outside (02/05/2025) Provider Onbase ECG ORDERABLES Final Result * (ABNORMAL) POCT Glucose, blood (02/04/2025 11:16 AM EDT) Only the most recent of8 resultswithin the time period is included. [facility] Glucose POCT 334(H) 70 - 100 mg/dL 02/04/2025 11:17 AM EDT [facility] Blood Capillary blood specimen / Unknown 02/04/2025 11:16 AM EDT 02/04/2025 11:18 AM EDT Toro Alves MD LAB POINT O F CARE TEST DOCKED DEVICE UNSOLICITED RESULTS Final Result Performing Organization Address [facility] Co de Phone Number [facility] [address] [place] [address], * (ABNORMAL) Vancomycin, trough Please draw up to one hour prior to 0900 vanco dose (02/04/2025 8:08 AM EDT) [facility] Vancomycin Trough 9.7(L) 10.0 - 20.0 mcg/mL LAB CHEMISTRY METHOD 02/04/2025 9:14 AM EDT [facility] Blood Venous blood specimen / Unknown Venipuncture / Unknown 02/04/2025 8:08 AM EDT 02/04/2025 8:41 AM EDT us Rosa Maria VELAZQUEZ LAB BLOOD ORDERABLES Final Resu lt [facility] [address] [place] [address], [place] [phone] * (ABNORMAL) Basic metabolic panel (02/04/2025 8:08 AM EDT) Only the most recent of2 resultswithin the time period is included. Pathologist [facility] Sodium 138 133 - 145 mmol/L LAB CHEMISTRY METHOD 02/04/2025 9:14 AM [facility] Potassium 3.9 3.5 - 5.5 mmol/L LAB CHEMISTRY METHOD 02/04/2025 9:14 AM [facility] Chloride 102 96 - 110 mmol/L LAB CHEMISTRY METHOD 02/04/2025 9:14 AM [facility] CO2 27 21 - 32 mmol/L LAB CHEMISTRY METHOD 02/04/2025 9:14 AM [facility] Anion Gap 9 3 - 11 LAB CHEMISTRY METHOD 02/04/2025 9:14 AM [facility] Glucose 237(H) 70 - 100 mg/dL LAB CHEMISTRY METHOD 02/04/2025 9:14 AM [facility] BUN 7 5 - 25 mg/dL LAB CHEMISTRY METHOD 02/04/2025 9:14 AM [facility] Creatinine 0.70 0.70 - 1.30 mg/dL LAB CHEMISTRY METHOD 02/04/2025 9:14 AM [facility] eGFR 117 >=60 mL/min/1. 73m2 LAB CHEMISTRY METHOD 02/04/2025 9:14 AM [facility] Comment:Calculation based on the??Chronic Kidney Disease Epidemiology Collaboration (CKD-EPI) equation refit??without adjustment for race. BUN/Creatinine Ratio 10.0 LAB CHEMISTRY METHOD 02/04/2025 9:14 AM EDT [facility] Calcium 9.1 8.5 - 10.5 mg/dL LAB CHEMISTRY METHOD 02/04/2025 9:14 AM EDT [facility] Blood Venous blood specimen / Unknown Venipuncture / Unknown 02/04/2025 8:08 AM EDT 02/04/2025 8:41 AM EDT us Sarah Beth VELAZQUEZ LAB BLOOD ORDERABLES Final Result [facility] [address] [place] [address], [place] [phone] * [place] Extremity Nonvascular Limited Left (02/03/2025 [...] at 5 days 02/08/2025 4:01 AM EDT [facility] Blood Venous blood specimen / Unknown Venipuncture / Unknown 02/03/2025 12:35 AM EDT 02/03/2025 12:50 AM EDT us Rosa Maria VELAZQUEZ LAB MICROBIOLOGY - GENERAL [place] Final Result [facility] [address] [place] [address], * XR Foot 3+ Views bilat (02/01/2025 [...] Signed Date: 02/01/2025 12:30 ET Workstation ID: [id number] Transcribed By: Self Edit Transcribed Date: 02/01/2025 [...] Signed Date: 02/01/2025 12:30 ET Workstation ID: [id number] Transcribed By: Self Edit Transcribed Date: 02/01/2025 [...] Signed Date: 02/01/2025 12:19 ET Workstation ID: [id number] Transcribed By: Self Edit Transcribed Date: 02/01/2025 [...] Signed Date: 02/01/2025 12:19 ET Workstation ID: [id number] Transcribed By: Self Edit Transcribed Date: 02/01/2025 12:18 ET us Tremaine Herrera DO CV VASCULAR PROCEDURES Final R esult * Lactate, with reflex (02/01/2025 9:59 AM EDT) [facility] LACTIC ACID 1.5 0.4 - 2.0 mmol/L LAB CHEMISTRY METHOD 02/01/2025 11:05 AM EDT [facility] Blood Venous blood specimen / Unknown Venipuncture / Unknown 02/01/2025 9:59 AM EDT 02/01/2025 10:38 AM EDT us Tremaine Herrera DO LAB BLOOD ORDERABLES Final Res ult [facility] [address] [place] [address], [place] [phone] * (ABNORMAL) Sedimentation rate, automated (02/01/2025 9:59 AM EDT) Sed Rate 37(H) 0 - 15 mm/hr LAB HEMETOLOGY METHOD 02/01/2025 10:49 AM EDT [facility] Blood Venous blood specimen / Unknown Venipuncture / Unknown 02/01/2025 9:59 AM EDT 02/01/2025 10:37 AM EDT Drake Corey MD LAB BLOOD ORDERABLES Final Result Performing Organization Address [facility] Co de Phone Number [facility] [address] [place] [address], [place] [phone] * (ABNORMAL) C-reactive protein (02/01/2025 9:59 AM EDT) C-Reactive Protein 2.23(H) <=0.50 mg/dL LAB CHEMISTRY METHOD 02/01/2025 11:06 AM EDT [facility] Blood Venous blood specimen / Unknown Venipuncture / Unknown 02/01/2025 9:59 AM EDT 02/01/2025 10:37 AM EDT Drake Corey MD LAB BLOOD ORDERABLES Final Result Performing Organization Address [facility] de Phone Number [facility] [address] [place] [address], [place] [phone] from Last 3 Months Insurance MEDICARE MEDICAID - [place] Advance Directives Documents on File Type Date Recorded 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 Care Teams Financial Assistance Advisor Relationship Specialty Start Date End Date Jas Babb MD [address] [facility] [address] [place], [place] PCP - General Internal Medicine 06/10/16
--- OUTSIDE RECORDS SUMMARY | 2025-03-18 10:35 | XMS_ITS | Encounter Summary ---
Author Organization [facility] Address [address] [place] [address] Care Team Providers Care System Administration Advisor Name Role Phone Jas Babb MD Primary Care Provider [phone]- [phone] Reason for Visit * Reason Onset Date Comments INCOMPLETE ORDER 03/07/2025 Encounter Details Date Type Department Care Team (Late st Contact Info) Description 03/07/2025 Telephone [facility] Emergency [address] [place] [phone] Drake Corey MD [address] [address] INCOMPLETE ORDER Social History Tobacco Use Types Packs/Day Years [...] Author No 10/10/2024 11:52 PM EST Afsaneh Silverio RN * Are you blind or do you have serious difficulty seeing, even when wearing glasses? Answer Date of Assessment Author No 10/10/2024 11:52 PM EST Afsaneh Silverio RN * Do you have serious difficulty [...] documented in this encounter Progress Notes * Mimi Grace - 03/07/2025 11:30 AM EDT We received an order for a DOBUTAMINE STRESS ECHO you placed on 03/05/25. Unfortunately we are unable to schedule this as the order is invalid without an associated diagnosis. Please associate a diagnosis to the order so we may schedule this test. Thank you, [facility] Scheduling documented in this encounter Plan of Treatment Upcoming Encounters Date Type Department Care Team (Late st Contact Info) Description 03/19/2025 10:15 AM EDT Office Visit Orthopedic Surgery - [place] [address] [phone] Jonathon Davidson DPM [address] [address] 03/25/2025 2:20 PM EDT Office Visit Gastroenterology - [place] [address] [phone] Faith Hernandez NP 175 [facility] [address] [place] [address] documented as of this encounter Visit Diagnoses Not on filedocumented in this encounter Care Teams System Administration Advisor Relationship Specialty Start Date End Date Jas Babb MD [address] [facility] [address] [place], [place] PCP - General Internal Medicine 06/10/16 documented as of this encounter
== END 2025-03-18 10:06 | disposition home or self-care (01) ==
LOC: HO.HGS 09:35
PROVIDERS: PCP Physician Assistant Medical; Visit Provider Surgery
DX: L98.0 Pyogenic granuloma (principal)
CPT/HCPCS: 99024

== ENCOUNTER → 2025-03-18 09:34 | Outpatient (BNVA) | payer MEDICARE, MEDICAID, SELFPAY | PROVIDERS: PCP Physician Assistant Medical; Visit Provider Surgery | DX: Z09 Encounter for follow-up examination after completed treatment for conditions other than malignant neoplasm (principal); L98.0 Pyogenic granuloma | CPT/HCPCS: 99212 ==

== ENCOUNTER 2025-09-19 08:39 | Outpatient (AMB) | payer MEDICARE, MEDICAID, SELFPAY ==
--- OUTSIDE RECORDS SUMMARY | 2025-09-17 13:45 | XMS_ITS | Encounter Summary ---
Author Organization [facility] Address [address] [place] [address] Care Team Providers Care Tube Inspector Name Role Phone Jas Babb MD Primary Care Provider [phone]- [phone] Encounter Details Date Type Department Care Team ([facility] st Contact Info) Description 09/17/2025 1:45 PM EDT Office Visit Orthopedic Surgery [facility] [address] [place] [address] [place] [phone] Jonathon Davidson, MARQUITA [address] [place] [phone] Poorly controlled type 2 diabetes mellitus with neuropathy ([facility] V24, [facility] V28) (Primary Dx); Contusion of right lesser toe(s) w damage to nail, init; 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, left, with fat layer exposed ([facility] V24, [facility] V28); Chronic ulcer of right great toe, with fat layer exposed ([facility] V24, [facility] V28) Social History Tobacco Use Types Packs/Day Years Used Date Smoking Tobacco: Former Smokeless Tobacco: Current Alcohol Use Standard Drinks/Week Comments Yes 0 (1 standard drink = 0.6 oz pur e alcohol) Social consumption Interpersonal Safety Answer Date Record ed Physical Abuse Unrecognized value 03/26/2025 Verbal Abuse Unrecognized value 03/26/2025 Sex and Gender Information Value Date Recorded Sex Assigned at Male 12/12/2024 7:58 PM EST Legal Sex Male 10:19 AM EST Gender Identity Male 12/12/2024 7:58 PM EST Sexual Orientation Straight 12/12/2024 7: 58 PM EST documented as of this encounter Functional Status * Are you deaf or do you have serious difficulty hearing? Answer Date of Assessment Author No 07/25/2025 3:27 PM EDT Frausto RN * Are you blind or do you have serious difficulty seeing, even when wearing glasses? Answer Date of Assessment Author No 07/25/2025 3:27 PM EDT Frausto RN * Do you have serious difficulty walking or climbing stairs? Answer Date of Assessment Author No 07/25/2025 3:27 PM EDT Frausto RN * Do you have serious difficulty dressing or bathing? Answer Date of Assessment Author No 07/25/2025 3:27 PM EDT Frausto RN * Because of a physical, mental, or emotional condition, do you have serious difficulty doing errandsalone such as visiting the doctor? Answer Date of Assessment Author No 07/25/2025 3:27 PM PACOT Frausto RN documented as of this encounter Mental Status * Because of a physical, mental, or emotional condition, do you have serious difficulty concentrating, remembering, or making decisions? (5 years old or older) Answer Entry Date Author No 07/25/2025 3:27 PM EDT Frausto RN documented in this encounter Progress Notes * Jonathon Davidson, MARQUITA - 09/17/2025 1:45 PM EDT Referring MD:umair Last PCP visit: 01/14/2025 IDENTIFIER: Torsten is a 45 y.o. year old male who presents for consultation. CC: Left foot wound HPI: 45-year-old male returns office for bilateral foot ulcerations. Patient has been consistent with using offloading pads and surgical shoes for ambulatory activity. Patient denies any recent redness swelling drainage or feelings of fever nausea vomit shortness of breath. Patient is here for evaluation and treatment ROS: GENERAL: Pt denies nausea, fever, [...] List Diagnosis Anxiety state Asthma Bipolar disorder ([facility] V24, [facility] V28) Chronic back pain Depressive disorder Diabetes mellitus type 2 with neurological manifestations ([facility] V24, [facility] V28) Esophageal reflux Essential hypertension Hypothyroid Obstructive sleep apnea Peripheral neuropathy Morbid obesity with BMI of 40.0-44.9, adult ([facility] V24, [facility] V28) Cellulitis of foot, left SOCIAL HISTORY: Social History Tobacco Use Smoking status: Former Smokeless tobacco: Current Substance Use Topics Alcohol use: Yes Comment: Social consumption ACTIVE MEDICATIONS: No outpatient medications have been marked as taking for the 09/17/25 encounter (Office Visit) withJonathon Davidson DPM. Current Facility-Administered Medications for the 09/17/25 encounter (Office Visit) with Jonathon Davidson DPM Medication Dose Route Frequency Provider Last Rate Last Admin DOBUTamine (DOBUTREX) 500 mg in dextrose 5% 250 mL (2 mg/mL) infusion (premix) 40 mcg/kg/min intravenous Titrated Sharif Deleon MD 141.6 mL/hr at 05/06/25 1040 40 mcg/kg/min at 05/06/25 1040 ALLERGIES: @ALL@ PHYSICAL EXAM: There were no [...] Sharp/dull sensation intact, protective sensation diminished on [place]. Multiple peripheral neuropathies bilaterally ORTHOPEDIC: Good muscle strength 5/5 of all flexors and extensors. Dorsi flexion of ankle ,10 degrees, plantar flexion WNL. No muscle atrophy. Previous amputation of the left great toe DERMATOLOGICAL:.Continued wound to the lateral aspect of the left foot which is 8 mm in diameter with 0.3 cm depth and regular hyperkeratotic rim. There is continued decrease in size of the wound andincreasing granulation tissue within the wound bed. No streaking signs of cellulitis Ulceration of the right great toe has consolidated and is now 1.5 cm in length and 8 mm in width. No clinical signs of infection at this time decreased amounts of drainage in comparison to last visit BIOMECHANICS: STJ ROM wnl, MTJ ROM wnl, 1st MPJ ROM wnl. IMPRESSION: 1. Poorly controlled type 2 diabetes mellitus with neuropathy (CMS/HCC V24, CMS/HCC V28) 2. Contusion of right lesser toe(s) w damage to nail, init 3. 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 Chronic ulcer of right great toe, with fat layer exposed (CMS/HCC V24, CMS/HCC V28) PLAN: Pt was seen and examined, history reviewed. Patient was educated that he needs to control his sugar as well as possible as this limits chances for reopening and breakdown of skin Patient does not have any streaking cellulitis or clinical signs of infection at this time and doesnot require continued use of antibiotics Patient was encouraged to start addressing his foot daily using a offloading pad to the left foot and dry sterile dressing to the bilateral feet. Patient understands this will decrease bacterial loadin the wound bed Open wound selective excisional debridement of devitalized soft tissue, fibrin, epidermis, dermis, thru skin and subcutaneous tissue, first 20 sq cm or less, using sterile sharp dissection #15 scalpel blade of the left and right foot wound. Pt. deferred anesthesia. . Devitalized tissue was not sentto pathology. Patient was given further dressing supplies instructed to continue with the dressings daily and offloading pads to the submetatarsal 5 position of the left foot as well as use surgical shoe Patient was encouraged to use ammonium lactate to the heels bilaterally in order to limit fissuringaround the heels Jonathon Davidson DPM documented in this encounter Plan of Treatment Upcoming Encounters Date Type Department Care Team (Late st Contact Info) Description 10/08/2025 1:15 PM EST Office Visit Orthopedic Surgery - [address] [phone] Jonathon Davidson DPM [address] [place] [phone] 10/15/2025 11:00 AM EST Office Visit Gastroenterology - [address] [place] [phone] Faith Hernandez, VIDEO EDITING INTERN [address] [place] [phone] documented as of this encounter Visit Diagnoses Diagnosis Poorly controlled type 2 diabetes mellitus with neuropathy (CMS/HCC V24, CMS/HCC V28)- Primary Contusion of right lesser toe(s) w damage to nail, init 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
[2025-09-19 08:40] VITALS: BP 225/108; PULSE 85; RESP 16; O2SAT 98; BMI 35.1
--- NOTE | 2025-09-19 08:40 | MHC.OFFVIS ---
Vital Signs 09/19/25 08:40 09/19/25 08:55 Height 6 ft Weight 259 lb BMI 35.1 BP 225/108 H 193/93 H Blood Pressure Location Lt brachial Position Sitting Respiration 16 Pulse 85 Pulse Source Pulse Oximeter Pulse Oximetry (%) 98 Oxygen Delivery Method Room Air Intake Visit Reasons: Discuss Qutenza treatment Intake Note: Patient has extreme high blood pressure. He stated did NOT took his Medication this morning. Prize Jacker Required: No Accompanied by: Life Partner Allergies acetaminophen (From Tylenol) Allergy (Verified 09/19/25 08:46) hives prednisone Allergy (Verified 09/19/25 08:46) hives/vomiting HPI Comments Details: The patient is a 45-year-old male presenting with chronic pain associated with peripheral neuropathy and diabetes mellitus. The patient reports worsening pain in the feet, which has been persistent and is exacerbated by his diabetic condition. The patient has a history of toe amputation on August 30 of the previous year, and he continues to experience wounds on his feet that require regular dressing and application of topical creams. He follows with financial institution treasurer and wound care. The patient has been previously treated with gabapentin for neuropathic pain, but it ceased to be effective after prolonged use. He has not taken gabapentin for several years and would consider trying pregabalin (Lyrica) as an alternative. The patient denies any significant side effects from gabapentin other than its eventual ineffectiveness. The patient also reports elevated blood glucose levels, with readings of 174 to 180 mg/dL before dinner, and acknowledges the need for better diabetes management. He is seeking a referral to an utility system repairer for improved management of his diabetes. The patient has not had recent blood work to assess his hemoglobin A1c levels. His significant other follows with Endocrine at [facility] and requests referral to that office. The patient has a history of hypertension, which is currently not well-controlled today. He reports not taking his blood pressure medications consistently, leading to elevated readings during the visit. The patient is aware of the risks associated with uncontrolled hypertension, including stroke and organ damage. - Onset: Chronic pain in the feet, worsening over time. - Quality: Persistent pain, exacerbated by diabetic condition. - Location: Primarily in the feet. - Exacerbating factors: Diabetic condition and non-healing wounds. - Affect: Pain impacts daily activities and quality of life. - Analgesia: Previously on gabapentin, considering pregabalin (Lyrica) for pain management. - Adverse Effects: No significant side effects reported from gabapentin. - Activities of Daily Living: Pain interferes with daily activities, requiring ongoing management. - Aberrant Drug Related Behaviors: None reported. [facility] Medical History (Updated 03/18/25 @ 09:52 by Vladimir Romero MD) Pyogenic granuloma Benign skin lesion of neck Sleep apnea Right groin hernia Diabetes Neuropathy Acid reflux HTN (hypertension) Surgical History Hx of surgical procedure (03/06/25) History of amputation of left fifth toe Social History Alcohol intake: current Alcohol intake frequency: a few times a month Alcohol type: beer and hard liquor Tobacco use type: Smokeless Tobacco Review of Systems Narrative - Cardiovascular: Denies chest pain, dizziness, or syncope. - Endocrine: Reports elevated blood glucose levels, seeking better management. - Neurological: Reports chronic pain in the feet, denies numbness or tingling. Physical Exam Exam Exam: - Cardiovascular: Blood pressure was noted to be high, requiring re-evaluation during the visit. - Dermatological: Examination of the feet showed improvement in skin condition, but healing wounds were still present. Vital Signs: Last Vital Signs Pulse 85 09/19/25 08:40 Resp 16 09/19/25 08:40 BP 225/108 H 09/19/25 08:40 Pulse Ox 98 09/19/25 08:40 Oxygen Delivery Method Room Air 09/19/25 08:40 BMI result Body Mass Index 35.1 Assessment & Plan Assessment & Plan (1) Diabetes: Code(s): E11.9 - Type 2 diabetes mellitus without complications Category: Medical (2) Diabetic neuropathy: Code(s): E11.40 - Type 2 diabetes mellitus with diabetic neuropathy, unspecified Category: Medical Plan The plan for managing the patient's peripheral neuropathy includes initiating pregabalin (Lyrica) at a low dose, with the possibility of titration based on response and tolerance. The patient is advised to monitor for any side effects and report back in a month to assess the effectiveness of the medication. Additionally, a lidocaine cream will be prescribed for topical application to manage localized pain, particularly before bedtime. patient is aware that he should not apply this over any open wounds. For diabetes management, the patient will be referred to an utility system repairer to optimize glycemic control. The patient is encouraged to have regular blood glucose monitoring and to follow up with primary care for routine blood work, including hemoglobin A1c assessment. Hypertension management includes reinforcing the importance of medication adherence to prevent complications such as stroke and organ damage. The patient is reminded to take his blood pressure medications consistently and to monitor his blood pressure at home. Patient was informed and verbally consented to the use of an ambient scribe for clinic note documentation during this visit. Orders: Referrals Endocrinology Referral E11.40 - Type 2 diabetes mellitus with diabetic neuropathy, unspecified, E11.9 - Type 2 diabetes mellitus without complications Medications: New lidocaine 4% apply small amount to feet up to twice daily as needed. 1 appl topical BID 30 grams 1RF pregabalin (Lyrica) 50 mg PO BID 60 caps 1RF Patient Instructions: - Start pregabalin (Lyrica) as prescribed and monitor for side effects. - Apply lidocaine cream to affected areas before bedtime. - Monitor blood glucose levels regularly and follow up with endocrinology. - Take blood pressure medications consistently and monitor blood pressure at home. - Schedule follow-up appointments with primary care for routine blood work. Coding Level of Care Code Est Pt Level 3 (59640) Complex EM visit Add On G2211 Diagnoses Diabetes E11.9 Diabetic neuropathy E11.40
[2025-09-19 08:55] VITALS: BP 193/93
--- OUTSIDE RECORDS SUMMARY | 2025-09-19 08:56 | XMS_ITS | Clinical Summary ---
Author Organization 175 [facility] Address [address] [place] [address] Phone Care Team Providers Care Melt House Drag Operator Name Role Phone Jas Babb MD Primary Care Provider [phone] Allergies Active Allergy Reactions Criticality Noted Date Comments Acetaminophen Rash 08/28/2024 Prednisone Nausea Only 07/13/2016 Other Reaction(s): Hives/Urticaria Medications insulin glargine (LANTUS) 100 unit/mL injection Inject 45 Units under the skin at bedtime. Active insulin lispro 100 unit/mL injection Inject under the skin 3 (three) times a day before meals. -Administer within 15 minutes of a meal Active ARIPiprazole (ABILIFY) 5 mg tablet Take [...] crush or chew. 30 each 5 Active benazepriL (LOTENSIN) 40 mg tablet Take 1 tablet (40 mg total) by mouth 1 (one) time each day. Active atenoloL (TENORMIN) 50 mg tablet Take 1 tablet (50 mg total) by mouth 1 (one) time each day. 5 Active clonazePAM (KlonoPIN) 1 mg tablet Take 1 tablet (1 mg total) by mouth at bedtime. 5 Active insulin glargine,hum.re c.anlog (Basaglar KwikPen U-100 Insulin) 100 unit/mL (3 mL) injection pen Inject 45 Units under the skin 1 (one) time each day. 5 Active tiZANidine (ZANAFLEX) 4 mg tablet Take 1 tablet (4 mg total) by mouth 2 (two) times a day. 5 Active pantoprazole (PROTONIX) 40 mg EC tablet Take 1 tablet (40 mg total) by mouth 2 (two) times a day before meals. Do not crush, chew, or split. 180 each 3 5 07/09/20 26 Active mupirocin (BACTROBAN) 2 % ointment Apply topically 1 (one) time each day. 30 g 2 5 09/11/20 25 Hospital, Clinic, or Other Facility Administered Medication Ordered Dose Route Frequency Start Date End Date Status DOBUTamine (DOBUTREX) 500 mg in dextrose 5% 250 mL (2 mg/mL) infusion (premix) 4720 mcg/min IV Titrated 05/06/2025 Active Active Problems Problem Noted Date Diagnosed Date Cellulitis of foot, left 02/02/2025 Anxiety state 09/25/2024 Bipolar disorder ([facility] V24, [facility] V28) 04/2024 Chronic back pain 09/25/2024 Depressive disorder 09/25/2024 Esophageal reflux 09/25/2024 Essential hypertension 09/25/2024 Hypothyroid 09/25/2024 Obstructive sleep apnea 09/25/2024 Peripheral neuropathy 09/25/2024 Morbid obesity with BMI of 4 0.0-44.9, adult ([facility] V24, [facility] V28) 09/25/2024 Asthma 04/29/2019 Diabetes mellitus type 2 wit h neurological manifestations (CMS/HCC V24, CMS/HCC V28) 12/20/2017 Encounters Date Type Department Care Team Description 09/17/2025 1:45 PM EDT Office Visit Orthopedic Surgery [facility] [address] [phone] Jonathon Davidson DPM Poorly controlled type 2 diabetes mellitus with neuropathy (CMS/HCC V24, CMS/HCC V28) (Primary Dx); Contusion of right lesser toe(s) w damage to nail, init; 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, left, with fat layer exposed (CMS/HCC V24, CMS/HCC V28); Chronic ulcer of right great toe, with fat layer exposed (CMS/HCC V24, CMS/HCC V28) 09/02/2025 3:15 PM EDT Office Visit Orthopedic Surgery [facility] [address] [phone] Jonathon Davidson DPM Poorly controlled type 2 diabetes mellitus with neuropathy (CMS/HCC V24, CMS/HCC V28) (Primary Dx); Contusion of right lesser toe(s) w damage to nail, init; 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, left, with fat layer exposed (CMS/HCC V24, CMS/HCC V28); Chronic ulcer of right great toe, with fat layer exposed (CMS/HCC V24, CMS/HCC V28) 08/24/2025 Results Follow-Up Gastroenterology - [place] [address] [facility] [address] [place] [phone] Magalie Feng MD 08/19/2025 8:45 AM EDT Office Visit Orthopedic Surgery [facility] [address] [phone] Jonathon Davidson DPM Poorly controlled type 2 diabetes mellitus with neuropathy (CMS/HCC V24, CMS/HCC V28) (Primary Dx); Cellulitis of right foot; 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, left, with fat layer exposed (CMS/HCC V24, CMS/HCC V28); Chronic ulcer of right great toe, with fat layer exposed (CMS/HCC V24, CMS/HCC V28) 08/12/2025 9:30 AM EDT Office Visit Orthopedic Surgery - [place] 250 [address] [facility] [address] [place] [phone] Jonathon Davidson, DPKeri Poorly controlled type 2 diabetes mellitus with neuropathy (CMS/HCC V24, CMS/HCC V28) (Primary Dx); Cellulitis of right foot; 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, left, with fat layer exposed (CMS/HCC V24, CMS/HCC V28); Chronic ulcer of right great toe, with fat layer exposed (CMS/HCC V24, CMS/HCC V28); Cellulitis of left foot 08/07/2025 2:45 PM EDT Office Visit Orthopedic Surgery [facility] [address] [phone] Jonathon Davidson, DPM Poorly controlled type 2 diabetes mellitus with neuropathy (CMS/HCC V24, CMS/HCC V28) (Primary Dx); Cellulitis of right foot; 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, left, with fat layer exposed (CMS/HCC V24, CMS/HCC V28); Chronic ulcer of right great toe, with fat layer exposed (CMS/HCC V24, CMS/HCC V28) 07/31/2025 2:40 PM EDT Office Visit Gastroenterology - [place] [address] [facility] [address] [place] [phone] Faith Hernandez NP Stricture and stenosis of esophagus (Primary Dx); Montgomery grade B esophagitis 07/31/2025 10:45 AM EDT Office Visit Orthopedic Surgery [facility] [address] [phone] Jonathon Davidson, DPM Poorly controlled type 2 diabetes mellitus with neuropathy (CMS/HCC V24, CMS/HCC V28) (Primary Dx); Cellulitis of right foot; 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, left, with fat layer exposed (CMS/HCC V24, CMS/HCC V28); Chronic ulcer of right great toe, with fat layer exposed (CMS/HCC V24, CMS/HCC V28) 07/31/2025 Telephone Gastroenterology - [place] [address] [facility] [address] [place] [phone] Faith Hernandez NP 07/25/2025 3:21 PM EDT - 07/25/2025 7:04 PM EDT Emergency [facility] Emergency [address] [place] [phone] Madi Nick MD Dysphagia, unspecified type (Primary Dx); Esophageal stricture Discharge Disposition: Home or Self Care 07/25/2025 Telephone Gastroenterology - [place] [address] [phone] Magalie Feng MD 07/24/2025 11:01 AM EDT Anesthesia Event [facility] Endoscopy [address] [place] [phone] Eris King MD 07/24/2025 9:02 AM EDT - 07/24/2025 11:59 PM EDT Hospital Encounter [facility] Endoscopy [address] [place] [phone] Stewart Sharpe CRNA Muslu, Halim Ozgur, MD Esophageal dysphagia Discharge Disposition: Home or Self Care 07/22/2025 10:15 AM EDT Office Visit Orthopedic Surgery - [place] 250 [address] [facility] [address] [place] [phone] Jonathon Davidson, MARQUITA Poorly controlled type 2 diabetes mellitus with neuropathy ([facility] V24, [facility] V28) (Primary Dx); Cellulitis of left foot; 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, left, with fat layer exposed ([facility] V24, [facility] V28); Chronic ulcer of right great toe, with fat layer exposed ([facility] V24, [facility] V28) 07/09/2025 9:00 AM EDT Office Visit Gastroenterology [facility] [address] [facility] [address] [place] [phone] Faith Hernandez NP Esophageal dysphagia (Primary Dx); Colonoscopy refused; Montgomery grade B esophagitis 07/09/2025 Telephone Gastroenterology [facility] [address] [facility] [address] [place] [phone] Faith Hernandez NP 07/08/2025 10:30 AM EDT Office Visit Orthopedic Surgery [facility] [address] [phone] Jonathon Davidson DPM Poorly controlled type 2 diabetes mellitus with neuropathy ([facility] V24, [facility] V28) (Primary Dx); Cellulitis of left foot; 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, left, with fat layer exposed ([facility] V24, [facility] V28) 07/04/2025 Telephone Orthopedic Surgery [facility] [address] [phone] Jonathon Davidson DPM 07/04/2025 Telephone Gastroenterology [facility] [address] [facility] [address] [place] [phone] Faith Hernandez NP 07/01/2025 Telephone Orthopedic Surgery [facility] [address] [phone] Jonathon Davidson DPM 06/24/2025 10:45 AM EDT Office Visit Orthopedic [facility] [address] [phone] Jonathon Davidson DPKeri Poorly controlled type 2 diabetes mellitus with neuropathy ([facility] V24, [facility] V28) (Primary Dx); Cellulitis of left foot; 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, left, with fat layer exposed ([facility] V24, [facility] V28) from Last 3 Months Surgical History Surgery Date Site/Laterality Comments HERNIA REPAIR 04/2014 Right PROCEDURE: REPAIR INGUINAL HERNIA; COMMENT: incarcerated ESOPHAGOGASTRODUODENOSCOPY TOE AMPUTATION Left great toe partial amputation Medical History Medical History Date Comments Anxiety state DX:Anxiety state Asthma 04/29/2019 DX:Asthma Bipolar disorder ([facility] V2 4, [facility] V28) DX:Bipolar disorder (HCC) Chronic back pain DX:Chronic frederick k pain Depressive disorder DX:Depressiv e disorder Diabetes mellitus type 2 wit h neurological manifestations ([facility] V24, [facility] V28) 12/20/2017 DX:Diabetes mellitus type 2 with neurological manifestations ([facility]) Esophageal reflux DX:Esophageal reflux Essential hypertension DX:Essent ial hypertension Morbid obesity with BMI of 4 0.0-44.9, adult ([facility] V24, [facility] V28) DX:Morbid obesity wit h BMI of 40.0-44.9, adult ([facility]) Obstructive sleep apnea DX:Obstr uctive sleep apnea WITH CPAP Peripheral neuropathy DX:Periphe ral neuropathy Family History [...] Sign Reading Time Taken Comments Blood Pressure 160/90 07/31/2025 2:43 PM EDT Pulse 91 07/31/2025 2:43 PM EDT Temperature 36.9 C (98.4 F) 07/25/2025 2:05 PM EDT Respiratory Rate 17 07/25/2025 5:28 PM EDT Oxygen Saturation 98% 07/31/2025 2:43 PM EDT Inhaled Oxygen Concentration - - Weight 116 kg (255 lb) 07/31/2025 2:43 PM EDT Height 185.4 cm (6' 1 ) 07/31/2025 2:43 PM EDT Body Mass Index 33.64 07/31/2025 2:43 PM EDT Plan of Treatment Upcoming Encounters Date Type Department Care Team (Late st Contact Info) Description 10/08/2025 1:15 PM EST Office Visit Orthopedic Surgery - [place] [address] [facility] [address] [place] [phone] Jonathon Davidson, DPM [address] [place] [phone] 10/15/2025 11:00 AM EST Office Visit Gastroenterology - [address] [facility] [address] [place] [phone] Faith Hernandez, AERONAUTICAL ENGINEERING TECHNOLOGIST [address] [place] [phone] Health Maintenance Due Date Last Done Comments Diabetes: Annual Retina Eye Exam 1991 DTaP,Tdap,and Td Vaccines (1 - Tdap) 2000 Hepatitis B Vaccines (1 of 3 - 19+ 3-dose series) 2000 Pneumococcal Vaccine: Pediatrics (0 to 5 Years) and At-Risk Patients (6 to 49 Years) (1 of 2 - PCV) 2000 HPV Vaccines (1 - 3-dose SCDM series) 2008 Cholesterol Screening (Lipid Panel) 09/12/2024 Diabetes: Annual Urine Albumin-Creatinine Ratio (uACR) 09/12/2024 Diabetes: Blood Sugar Control Test (HGBA1C) 09/12/2024 HIV Screening 09/12/2024 Hepatitis C Screening 09/12/2024 Medicare Annual Wellness Visit 09/12/2024 Social Influencers of Health Screening 09/12/2024 Depression Screening 11/20/2024 COVID-19 Vaccine ( season) 2025 06/27/2021, 05/26/2021 Influenza Vaccine (#1) 2025 Diabetes: Annual Foot Exam 02/02/2026 02/02/2025 Diabetes: Annual GFR (Glomerular Filtration Rate) 03/10/2026 03/10/2025, 03/05/2025, 02/04/2025, Additional history exists Hypertension/CHF/CAD Annual BMP Blood Test 03/10/2026 03/10/2025, 03/05/2025, 02/04/2025, Additional history exists RSV Immunization Adult Patients (1 - 1-dose 75+ series) 2056 HIB Vaccines Aged Out No longer eligi [...] Procedure Name Priority Date/Time Associated Diagnosis Comments XR CHEST 2 VIEWS STAT 07/25/2025 5:21 PM EDT EGD Routine 07/24/2025 11:22 AM EDT Esophageal dysphagia NON-GYNECOLOGIC CYTOLOGY Routine 07/24/2025 11:17 AM EDT Esophageal dysphagia COMPREHENSIVE METABOLIC PANEL STAT 03/10/2025 11:39 AM EDT from Last 3 Months or Most Recently Relevant to Health Maintenance Results * XR Chest 2 Views (07/25/2025 5:21 PM EDT) Anatomical Region Laterality Modality Body Radiographic Siomara ging 07/26/2025 9:57 AM EDT Impressions 07/26/2025 9:59 AM EDT Normal chest radiographs. -------- FINAL REPORT -------- Dictated By: Torsten Snyder Dictated Date: 07/26/2025 09:57 ET Assigned Physician: Torsten Snyder Reviewed and Electronically Signed By: Torsten Snyder Signed Date: 07/26/2025 09:59 ET Workstation ID: [id number] Transcribed By: Self Edit Transcribed Date: 07/26/2025 09:57 ET Narrative 07/26/2025 9:59 AM EDT PROCEDURE: PA and lateral radiographs of the chest. HISTORY: Chest discomfort, recent esophageal dilatation/EGD. COMPARISON: 03/10/2025. FINDINGS: The heart, mediastinum, lungs, pleural spaces, and bony thorax are normal. Procedure Note Torsten Snyder MD - 07/26/2025 PROCEDURE: PA and lateral radiographs of the chest. HISTORY: Chest discomfort, recent esophageal dilatation/EGD. COMPARISON: 03/10/2025. FINDINGS: The heart, mediastinum, lungs, pleural spaces, and bony thorax arenormal. IMPRESSION: Normal chest radiographs. -------- FINAL REPORT -------- Dictated By: Torsten Snyder Dictated Date: 07/26/2025 09:57 ET Assigned Physician: Torsten Snyder Reviewed and Electronically Signed By: oTrsten Snyder Signed Date: 07/26/2025 09:59 ET Workstation ID: [id number] Transcribed By: Self Edit Transcribed Date: 07/26/2025 09:57 ET Madi Nick MD IMG XR PROCEDURES Final Result * EGD Anesthesia - MAC; [facility] ENDOSCOPY (07/24/2025 11:22 AM EDT) Anatomical Region Laterality Modality Endoscopy 07/24/2025 11:0 6 AM EDT Impressions 07/24/2025 11:27 AM EDT - Normal examined duodenum. - White specked mucosa in the greater curvature. Cells for cytology obtained. - Benign-appearing esophageal stenosis. Dilated. Recommendation: - Discharge patient to home. - Follow an antireflux regimen. - Use a proton pump inhibitor PO daily indefinitely. Narrative 07/24/2025 11:27 AM EDT [facility] GI Patient Name: Mauri Mueller Procedure Date: 07/24/2025 11:06 AM Date of : 1980 Age: 45 Gender: Male Note Status: Finalized Attending MD: Magalie Feng MD, Procedure Date No Time: 07/24/2025 Procedure: Upper GI endoscopy Indications: Dysphagia, Stricture of the esophagus, Follow-up of esophageal stricture, For therapy of esophageal stricture Providers: Magalie Feng MD Referring MD: Magalie Feng MD Medicines: Monitored Anesthesia Care Complications: No immediate complications. Estimated blood loss: Minimal. Estimated Blood Loss: Estimated blood loss was minimal. Procedure: Pre-Anesthesia Assessment: - Prior to the procedure, a History and Physical was performed, and patient medications and allergies were reviewed. The patient is competent. The risks and benefits of the procedure and the sedation options and risks were discussed with the patient. All questions were answered and informed consent was obtained. Patient identification and proposed procedure were verified by the physician, the nurse, the custom studio coordinator and the oxygen equipment technician in the pre-procedure area in the endoscopy suite. Mental Status Examination: alert and oriented. Airway Examination: normal oropharyngeal airway and neck mobility. Respiratory Examination: clear to auscultation. CV Examination: normal. Prophylactic Antibiotics: The patient does not require prophylactic antibiotics. Prior Anticoagulants: The patient has taken no anticoagulant or antiplatelet agents. ASA Grade Assessment: III - A patient with severe systemic disease. After reviewing the risks and benefits, the patient was deemed in satisfactory condition to undergo the procedure. The anesthesia plan was to use monitored anesthesia care (MAC). Immediately prior to administration of medications, the patient was re-assessed for adequacy to receive sedatives. The heart rate, respiratory rate, oxygen saturations, blood pressure, adequacy of pulmonary ventilation, and response to care were monitored throughout the procedure. The physical status of the patient was re-assessed after the procedure. After obtaining informed consent, the endoscope was passed under direct vision. Throughout the procedure, the patient's blood pressure, pulse, and oxygen saturations were monitored continuously. The Endoscope was introduced through the mouth, and advanced to the second part of duodenum. The upper GI endoscopy was accomplished without difficulty. The patient tolerated the procedure well. Findings: The examined duodenum was normal. Localized moderate mucosal changes characterized by white specks were found on the greater curvature of the stomach. Cells for cytology were obtained by brushing. Estimated blood loss was minimal. One benign-appearing, intrinsic moderate (circumferential scarring or stenosis; an endoscope may pass) stenosis was found at the gastroesophageal junction. This stenosis measured 1.5 cm (inner diameter) x less than one cm (in length). The stenosis was traversed. A guidewire was placed and the scope was withdrawn. Dilation was performed with a Savary dilator with mild resistance at 16 mm, 17 mm, 18 mm, 19 mm and 20 mm. Estimated blood loss was minimal. Procedure Code(s): --- Professional --- 15177, Esophagogastroduodenoscopy, flexible, transoral; with insertion of guide wire followed by passage of dilator(s) through esophagus over guide wire Diagnosis Code(s): --- Professional --- K31.89, Other diseases of stomach and duodenum K22.2, Esophageal obstruction CPT copyright 2020 [employer]. All rights reserved. The codes documented in this report are preliminary and upon embedded software architect review may be revised to meet current compliance requirements. Magalie Feng MD 07/24/2025 11:27:39 AM This report has been signed electronically.Magalie Feng MD Number of Addenda: 0 Note Initiated On: 07/24/2025 11:06 AM Scope In: Scope Out: Endoscopy Department at [facility] - [address] [place] [phone] Procedure Note Magalie Feng MD - 07/24/2025 [facility] GI Patient Name: Mauri Mueller Procedure Date: 07/24/2025 11:06 AM Date of : 1980 Age: 45 Gender: Male Note Status: Finalized Attending MD: Magalie Feng MD, Procedure Date No Time: 07/24/2025 Procedure: Upper GI endoscopy Indications: Dysphagia, Stricture of the esophagus, Follow-up of esophageal stricture, For therapy of esophageal stricture Providers: Magalie Feng MD Referring [...] the physician, the nurse, theanesthetist and the oxygen equipment technician in the pre-procedure area in the [...] accomplished without difficulty. The patienttolerated the procedure well. Findings: The examined duodenum was normal. Localized moderate mucosal changes characterized by white specks were found on the greater curvature of the stomach. Cells for cytology were obtained by brushing. Estimated blood loss was minimal. One benign-appearing, intrinsic moderate (circumferential scarring or stenosis; an endoscope may pass) stenosis was found at thegastroesophageal junction. This stenosis measured 1.5 cm (inner diameter) x less than one cm (in length). Thestenosis was traversed. A guidewire was placed and the scope was withdrawn. Dilation was performed with a Savary dilator with mild resistance at 16 mm, 17 mm, 18mm, 19 mm and 20 mm. Estimated blood loss wasminimal. Procedure Code(s): --- Professional --- 87341, Esophagogastroduodenoscopy, flexible, transoral; with insertion of guide wire followed by passage of dilator(s) through esophagus over guidewire Diagnosis Code(s): --- Professional --- K31.89, Other diseases of stomach and duodenum K22.2, Esophageal obstruction CPT copyright 2020 [employer]. All rights reserved. The codes documented in this report are preliminary and upon embedded software architect reviewmay be revised to meet current compliance requirements. Magalie Feng MD 07/24/2025 11:27:39 AM This report has been signed electronically.Magalie Feng MD Number of Addenda: 0 Note Initiated On: 07/24/2025 11:06 AM Scope In: Scope Out: Endoscopy Department at [facility] - [address] [place] [phone] IMPRESSION: - Normal examined duodenum. - White specked mucosa in the greater curvature.Cells for cytology obtained. - Benign-appearing esophageal stenosis. Dilated. Recommendation: - Discharge patient to home. - Follow an antireflux regimen. - Use a proton pump inhibitor PO dailyindefinitely. us Magalie Feng MD GI~PROCEDURE ORDERABLES Fin al Result * Non-gynecologic cytology (07/24/2025 11:17 AM EDT) Final Diagnosis A. Stomach, Gastric Brushing, (ThinPrep, cell block): Negative for malignant cells. 07/28/2025 10:51 AM EDT [facility] Specimen A Adequacy Satisfactory for evaluation 07/28/2025 10:51 AM EDT [facility] Gross Description A. Stomach, gastric brushing: Received in saline is 30 ml of clear fluid with brush. One thinPrep, and one cell block are made. Cell block placed in formalin at 07:00, total formalin fixation time is 62 hours. jr 07/28/2025 10:51 AM EDT [facility] Disclaimer Unless otherwise specified, all tissue is 10% NB formalin fixed and paraffin embedded. Technical cytopathology services provided by [facility], at [address] [place] [address] (CLIA # [id number]/Blaise Chicas MD, Subscription Crew Leader.) 07/28/2025 10:51 AM EDT [facility] Brushing Stomach structure / Unknown 07/24/2025 11:17 AM EDT 07/25/2025 6:43 AM EDT Magalie Feng MD LAB CYTOLOGY ORDERABLES Fin al Result [facility] [address] [place] [address], [place] [phone] * (ABNORMAL) Comprehensive metabolic panel (03/10/2025 11:39 AM EDT) Sodium 135 133 - 145 mmol/L LAB CHEMISTRY METHOD 03/10/2025 12:42 PM [facility] Potassium 4.2 3.5 - 5.5 mmol/L LAB CHEMISTRY METHOD 03/10/2025 12:42 PM [facility] Chloride 100 96 - 110 mmol/L LAB CHEMISTRY METHOD 03/10/2025 12:42 PM [facility] CO2 28 21 - 32 mmol/L LAB CHEMISTRY METHOD 03/10/2025 12:42 PM [facility] Anion Gap 7 3 - 11 LAB CHEMISTRY METHOD 03/10/2025 12:42 PM [facility] Glucose 299(H) 70 - 100 mg/dL LAB CHEMISTRY METHOD 03/10/2025 12:42 PM [facility] BUN 10 5 - 25 mg/dL LAB CHEMISTRY METHOD 03/10/2025 12:42 PM [facility] Creatinine 0.82 0.70 - 1.30 mg/dL LAB CHEMISTRY METHOD 03/10/2025 12:42 PM [facility] eGFR 112 >=60 mL/min/1. 73m2 LAB CHEMISTRY METHOD 03/10/2025 12:42 PM [facility] Comment:Calculation based on the Chronic Kidney Disease Epidemiology Collaboration (CKD-EPI) equation refit without adjustment for race. BUN/Creatinine Ratio 12.2 LAB CHEMISTRY METHOD 03/10/2025 12:42 PM [facility] Calcium 9.9 8.5 - 10.5 mg/dL LAB CHEMISTRY METHOD 03/10/2025 12:42 PM [facility] AST (SGOT) 11 10 - 42 unit/L LAB CHEMISTRY METHOD 03/10/2025 12:42 PM [facility] ALT (SGPT) 23 10 - 60 unit/L LAB CHEMISTRY METHOD 03/10/2025 12:42 PM [facility] Alkaline Phosphatase 97 42 - 121 unit/L LAB CHEMISTRY METHOD 03/10/2025 12:42 PM [facility] Total Protein 7.4 6.0 - 8.0 g/dL LAB CHEMISTRY METHOD 03/10/2025 12:42 PM [facility] Albumin 3.9 3.2 - 5.0 g/dL LAB CHEMISTRY METHOD 03/10/2025 12:42 PM [facility] Total Bilirubin 0.4 0.0 - 1.4 mg/dL LAB CHEMISTRY METHOD 03/10/2025 12:42 PM [facility] Blood Venous blood specimen / Unknown Venipuncture / Unknown 03/10/2025 11:39 AM EDT 03/10/2025 12:11 PM EDT us Yadiel Srtong MD LAB BLOOD ORDERABLES Final Resu lt [facility] [address] [place] [address], from Last 3 Months or Most Recently Relevant to Health Maintenance Insurance MEDICARE MEDICAID - [place] Advance Directives Documents on File Type Date Recorded Patient Fan Runner Expl [facility] Care Decision (hx) 09/03/2024 AD YARELIS DIRECTIVE * Full Code - Confirmed (Latest Code Status on File) Date Activated Date Inactivated Comments 02/02/2025 11:56 PM 02/04/2025 2:10 PM This code s tatus was ascertained in the following way: Code status discussion: discussion with patient To update the patient's code status, place a code status order. Do not modify or discontinue any currently active code status orders. Care Teams Melt House Drag Operator Relationship Specialty Start Date End Date Jas Babb MD [address] [place] [address] [address] [place], [place] PCP - General Internal Medicine 06/10/16
--- OUTSIDE RECORDS SUMMARY | 2025-09-19 08:56 | XMS_ITS | Encounter Summary ---
Author Organization [facility] Address [address] [place] [address] Care Team Providers Care Melting Operator Name Role Phone Jas Babb MD Primary Care Provider [phone]- [phone] Encounter Details Date Type Department Care Team ([facility] st Contact Info) Description 08/24/2025 Results Follow-Up Gastroenterology - [place] [address] [place] [phone] Magalie Feng MD [address] [place] [phone] Social History Tobacco Use Types Packs/Day Years [...] Assessment Author No 07/25/2025 3:27 PM EDT Justice, De bra, RN * Do you have serious difficulty [...] 07/25/2025 3:27 PM EDT Frausto RN documented as of this encounter Mental Status * Because of a physical, mental, or emotional condition, do you have serious difficulty concentrating, remembering, or making decisions? (5 years old or older) Answer Entry Date Author No 07/25/2025 3:27 PM EDT Frausto RN documented in this encounter Plan of Treatment Upcoming Encounters Date Type Department Care Team (Late st Contact Info) Description 10/08/2025 1:15 PM EST Office Visit Orthopedic Surgery - [place] [address] [facility] [address] [place] [phone] Jonathon Davidson, DPM [address] [place] [phone] 10/15/2025 11:00 AM EST Office Visit Gastroenterology - [address] [place] [phone] Faith Hernandez, AZAEL [address] [place] [phone] documented as of this encounter Visit Diagnoses Not on filedocumented in this encounter Care Teams Melting Operator Relationship Specialty Start Date End Date Jas Babb MD [address] [facility] [address] [place], [place] PCP - General Internal Medicine 06/10/16 documented as of this encounter
== END 2025-09-19 09:07 | disposition home or self-care (01) ==
LOC: HO.PMC 08:39
PROVIDERS: PCP Physician Assistant Medical; Visit Provider Registered Nurse Emergency
DX: E11.40 Type 2 diabetes mellitus with diabetic neuropathy, unspecified (principal)
CPT/HCPCS: 99213; G2211

== ENCOUNTER → 2025-09-19 08:39 | Outpatient (BNVA) | payer MEDICARE, MEDICAID, SELFPAY | PROVIDERS: PCP Physician Assistant Medical; Visit Provider Registered Nurse Emergency | DX: E11.65 Type 2 diabetes mellitus with hyperglycemia (principal); Z79.4 Long term (current) use of insulin; E11.40 Type 2 diabetes mellitus with diabetic neuropathy, unspecified; I10 Essential (primary) hypertension; Z72.0 Tobacco use; Z89.422 Acquired absence of other left toe(s) | CPT/HCPCS: 99212 ==